=== PATIENT | female | born 1970 | race Caucasian/White ===

== ENCOUNTER 2016-06-02 20:54 | Emergency (ER) | payer OTHER ==
[2015-03-30 12:31] VITALS: BMI 23.0
[~2016-06-02 20:54] MED LIST: DESERYL100 MG PO; HYDROCODONE-APA1 TAB PO; PHENERGAN25 M1 PO; PROTONIX40 MG PO; REQUIP0.5 MG PO; ROBAXIN-750750 MG PO; SOMA350 MG PO; XANAX1 MG PO; XANAX2 MG PO
[2016-06-02 22:06] LABS: BASOPHILS 0.4 % (0.0-2.0); EOSINOPHILS 1.4 % (0-7); HEMATOCRIT 38.9 % (36.0-48.0); HEMOGLOBIN 12.9 g/dL (12-16); IMMATURE GRANULOCYTES 0.2 % (0-5); LYMPHOCYTES 37.7 % (15-50); MCH 32.5 pg (26.0-34.0); MCHC 33.2 g/dL (31.0-37.0); MEAN PLATELET VOLUME 10.5 fL (7.4-10.4); MONOCYTES 10.2 % (2-11); NEUTROPHILS 50.1 % (40-80); PLATELET COUNT 170 10x3/uL (130-400); RBC 3.97 10x6/uL (4.00-5.40); RDW 14.4 % (11.5-14.5); WBC 4.9 10x3/uL (4.8-10.8)
[2016-06-02 22:16] LABS: ALBUMIN 3.3 g/dL (3.4-5.0); ALKALINE PHOSPHATASE 79 U/L (46-116); ALT (SGPT) 13 U/L (10-68); BILIRUBIN - TOTAL 0.13 mg/dL (0.2-1.3); CALC OSMOLALITY 279 mosm/kg (275-300); CALCIUM 8.7 mg/dL (8.5-10.1); CARBON DIOXIDE 28.5 mmol/L (21.0-32.0); CHLORIDE - SERUM 106 mmol/L (98-107); CREATININE - SERUM 0.7 mg/dL (0.6-1.3); GLUCOSE 95 mg/dL (74-106); POTASSIUM - SERUM 3.9 mmol/L (3.5-5.1); PROTEIN - SERUM 6.2 g/dL (6.4-8.2); SODIUM 141 mmol/L (136-145); UREA NITROGEN 11 mg/dL (7-18); eGFR NON AFRICAN AMERICAN > 90 mL/min (90-120)
== END 2016-06-02 23:38 | disposition home or self-care (01) ==
LOC: D.ER 20:54
PROVIDERS: Emergency Medicine
DX: R00.2 Palpitations (principal); F17.200 Nicotine dependence, unspecified, uncomplicated

== ENCOUNTER 2016-10-07 07:50 | Emergency (ER) | payer OTHER ==
[2015-03-30 12:31] VITALS: BMI 23.0
== END 2016-10-07 09:28 | disposition home or self-care (01) ==
LOC: D.ER 07:50
DX: S01.111A Laceration without foreign body of right eyelid and periocular area, initial encounter (principal); W10.9XXA Fall (on) (from) unspecified stairs and steps, initial encounter; Y93.89 Activity, other specified; Y92.89 Other specified places as the place of occurrence of the external cause; T14.8 Other injury of unspecified body region; J44.9 Chronic obstructive pulmonary disease, unspecified

== ENCOUNTER 2016-12-10 07:21 | Outpatient (CLI) | payer OTHER ==
[~2016-12-10] VITALS: Ht 162.6 cm; Wt 49.5 kg
--- NOTE | ~2016-12-10 | HEMODYNAMI ---
PATIENT:SHANIKA MARTINEZ MEDICAL RECORD: [id number] : 70 LOCATION:[facility] ADMISSION DATE: 12/10/16 Generatedon:12/10/201610:02 Patient name: SHANIKA MARTINEZ Patient #: [id number] SSN: D OB: 1970 Date of study: 12/10/2016 Page: Of Hemodynamic Procedure Report Patient Data Patient Demographics Procedure consent was obtained First Name: SHANIKA Gender: Female Last Name: MICHELLE : 1970 Middle Initial: M Age: 46 year(s) Patient #: [id number] Race: Additional ID: [id number] Contact details [address]: [address] [place] [address] State: [place] City: [place] Zip code: [address] Past Medical History Allergies Allergen Reaction Date Comments Reported Other allergy 11/01/2014 Morphine, Codeine Codeine 12/10/2016 Morphine 12/10/2016 Other allergy 12/10/2016 Dilaudid, Meloxicam, Sertraline(Zoloft) Admission Admission Data Admission Date: 12/10/2016 Admission Time: 7:21 Procedure Procedure Types Cath Procedure Diagnostic Procedure [facility] w/Coronaries Miscellaneous Procedures Moderate Sedation up to 15 minutes Procedure Description Procedure Date Procedure Date: 12/10/2016 Procedure Start Time: 9:47 Procedure End Time: 9:58 Procedure Staff Name Function Safia Carlin RT Scrub Rivera Mensah RN School Bus Driver/Teacher Assistant Jeffy Reis RN Nurse Thomas Maynard MD Performing Physician Amol Eastman RT Monitor Procedure Data Cath Procedure Fluoroscopy Diagnostic fluoroscopy Total fluoroscopy Time: 0.9 time: 0.9 min min Diagnostic fluoroscopy Total fluoroscopy dose: 83 dose: 83 mGy mGy Contrast Material Contrast Material Type Amount (ml) Isovue 300 51 Entry Location Entry Primary Successful Side Size Upsize Upsize Entry Closure Zamora ccessful Closure Location (Fr) 1 (Fr) 2 (Fr) Remarks Device Remarks Femoral Right 5 Fr Mechanical artery Compression Estimated blood loss: 5 ml Diagnostic catheters Device Type Used For End Catheter Placement Cordis 5Fr Pigtail LV Angiography Catheter (MP) Cordis 5Fr JL 4.0 Left Coronary Catheter (MP) Angiography Cordis 5Fr 3DRC Catheter Right Coronary (MP) Angiography Procedure Complications No complications Procedure Medications Medication Administration Route Dosage Oxygen NC 2 l/min Lidocaine 2% added to field 20 Heparin Flush Bag added to field 2 bags (1000units/500ml NS) 0.9% NaCl I.V. 100 ml/hr 0.9% NaCl I.V. bolus 250 ml Versed I.V. 1 mg Fentanyl I.V. 100 mcg Versed I.V. 1 mg Fentanyl I.V. 50 mcg Versed I.V. 1 mg Fentanyl I.V. 50 mcg Hemodynamics Rest Heart Rate: 73 (bpm) Snapshots Pre Cath Intra NCS Post Cath Vital Signs Time Heart Resp SPO2 etCO2 CD7notu NIBP Rhythm Pain Sedation Rate (ipm) (%) (mmHg) (mmHg) (mmHg) Status Level (bpm) 9:24:23 76 16 100 0 0 117/76(91) NSR 6 (11) 10(A) , Intense 9:28:30 70 16 100 0 0 106/64(81) NSR 6 (11) 10(A) , Intense 9:32:35 69 16 99 0 0 101/51(72) NSR 6 (11) 10(A) , Intense 9:36:39 64 15 97 0 0 96/50(63) NSR 6 (11) 10(A) , Intense 9:40:45 63 16 98 0 0 86/40(72) NSR 6 (11) 10(A) , Intense 9:44:46 60 16 98 0 0 80/46(57) NSR 0 (11) 10(A) , No pain 9:48:48 67 17 98 0 0 83/40(70) NSR 0 (11) 9(A) , No pain 9:52:48 64 16 98 0 0 85/48(61) NSR 0 (11) 10(A) , No pain 9:56:49 62 9 98 0 0 86/42(58) NSR 0 (11) 10(A) , No pain Medications Time Medication Route Dose Verified Delivered Reason Notes Effec tiveness by by 9:26:53 Oxygen NC 2 Thomas Bardales used for l/min Aleyda Reis line out worker 9:26:59 Lidocaine 2% added 20ml Thomas Thomas for local to vial Aleyda Maynard MD anesthetic field 9:27:05 Heparin Flush added 2 Thomas Thomas used for Bag to bags Aleyda Maynard MD procedure (1000units/500ml field NS) 9:27:13 0.9% NaCl I.V. 100 Thomas Buffie Per ml/hr Aleyda Reis RN physician 9:42:36 0.9% NaCl I.V. 250 Thomas Buffie Per bolus ml Aleyda Reis RN physician 9:45:24 Versed I.V. 1 mg Thomas Buffie for Aleyda Reis RN sedation 9:45:30 Fentanyl I.V. 100 Thomas Buffie for mcg Aledya Reis RN sedation 9:48:53 Versed I.V. 1 mg Thomas Buffie for Aleyda Reis RN sedation 9:48:57 Fentanyl I.V. 50 Thomas Buffie for mcg Aleyda Reis RN sedation 9:52:01 Versed I.V. 1 mg Thomas Buffie for Aleyda Reis RN sedation 9:52:04 Fentanyl I.V. 50 Thomas Buffie for mcg Aleyda Reis RN sedation Procedure Log Time Note 9:05:42 Diagnostic Cath Status : Elective 9:06:02 Time tracking: Regular hours 9:06:05 Plan of Care:Hemodynamics will remain stable., Cardiac rhythm will remain stable., Comfort level will be maintained., Respiratory function will remain adequate., Patient/ family verbilizes understanding of procedure., Procedure tolerated without complication., Recovers from procedure without complications.. 9:07:54 Rivera Mensah RN sent for patient. Start room use. 9:13:54 Patient received from Pre/Post Procedure Room to CCL 1 Alert and oriented. Tansferred to table in Supine position. 9:13:55 Warm blankets applied, and franco hugger turned on for patient comfort. 9:13:56 Correct patient and procedure confirmed by team. 9:13:57 Signed procedure consent form obtained from patient. 9:13:59 ECG and BP/O2 sat monitors applied to patient. 9:14:03 Pre-op teaching completed and patient verbalized understanding. 9:14:03 Pre-procedure instructions explained to patient. 9:14:06 Family in waiting room. 9:14:08 Patient NPO since Midnight. 9:19:06 Vital chart was started 9:20:32 Rhythm: sinus rhythm 9:20:33 Full Disclosure recording started 9:20:48 H&P Date Dictated: 11/13/2016 Within 30 days and on chart., H&P Addendum completed by physician on day of procedure. (MUST COMPLETE FOR ALL OUTPATIENTS). 9:20:58 Patient allergic to Codeine 9:21:03 Patient allergic to Morphine 9:21:40 Patient allergic to Other allergyDilaudid, Meloxicam, Sertraline(Zoloft) 9:21:43 Is the patient allergic to Iodine/contrast media? No. 9:21:45 Is patient on blood thinner?Yes 9:21:47 ACC The patient was administered the following blood thiners within the last 24 hours: ACCPlavix 9:21:49 Patient diabetic? No. 9:21:51 Previous problem with sedation/anesthesia? No ? 9:21:55 Snore? No 9:21:56 Sleep apnea? No 9:21:57 Opens mouth fully? Yes 9:21:57 Deviated septum? No 9:21:58 Sticks out tongue? Yes 9:22:01 Airway obstruction? Yes COPD 9:22:05 Dentures? Yes In 9:22:08 Pre procedure: right dorsailis pedis pulse 2+ Normal; easily identifiable; not easily obliterated 9:22:11 Patient pain scale 0/10 ?. 9:22:26 IV patent on arrival in left antecubital with 0.9% NaCl at KVO. 9:22:34 Lab results completed and on chart. 9:22:38 Right groin area was prepped with chlora-prep and draped in sterile fashion 9:22:39 Sharps counted by scrub and verified by R.N. 9:22:39 Alarms reviewed by R. N. 9:23:21 Use device set Femoral Dx 9:23:22 Acist Syringe opened to sterile field. 9:23:23 Terumo 5Fr Marana Sheath opened to sterile field. 9:23:23 Medline Cath Pack opened to sterile field. 9:23:23 Bag Decanter opened to sterile field. 9:23:24 St Arnulfo 260cm J .035 wire opened to sterile field. 9:23:25 Acist Manifold opened to sterile field. 9:23:25 Acist Hand Control opened to sterile field. 9:: Tegaderm 4 x 4 opened to sterile field. 9:: Diagnostic Infinity 5Fr Multipack catheter opened to sterile field. 9::53 Oxygen 2 l/min NC was administered by Jeffy Reis RN; used for procedure; 9::59 Lidocaine 2% 20ml vial added to field was administered by Thomas Maynard MD; for local anesthetic; 9:27:05 Heparin Flush Bag (1000units/500ml NS) 2 bags added to field was administered by Thomas Maynard MD; used for procedure; 9:27:05 Baseline sample Acquired. 9:27:13 0.9% NaCl 100 ml/hr I.V. was administered by Jeffy Reis RN; Per physician; 9:32:17 Zero performed for pressure channel P1 9:32:40 Physician paged 9:42:36 0.9% NaCl 250 ml I.V. bolus was administered by Jeffy Reis RN; Per physician; 9:44:23 Final Timeout: patient, procedure, and site verified with staff and physician. All members of the team are in agreement. 9:44:25 Right groin site verified by team. 9:44:26 Pt has 6/10 chronic back pain, states did not take her pain medications this am. 9:44:29 Physical assessment completed. ASA score P 2 - A patient with mild systemic disease as per Thomas Maynard MD. 9:44:34 Sedation plan: IV Moderate Sedation Versed, Fentanyl 9:45:24 Versed 1 mg I.V. was administered by Jeffy Reis RN; for sedation; 9:45:30 Fentanyl 100 mcg I.V. was administered by Jeffy Reis RN; for sedation; 9:46:47 Procedure started. 9:47:09 Local anesthetic to right femoral artery with Lidocaine 2% by Thomas Maynard MD.INITIAL ACCESS ONLY 9:47:30 A 5 Fr sheath was inserted into the Right Femoral artery 9:48:03 A Cordis 5Fr Pigtail Catheter (MP) was advanced over the wire and used for LV Angiography. 9:48:34 LV gram done using DAN 9:48:39 EF : 50 % 9:48:42 Injector settings: Ml/sec: 10, Volume: 20, 9:48:43 Catheter removed. 9:48:53 Versed 1 mg I.V. was administered by Jeffy Reis RN; for sedation; 9:48:57 Fentanyl 50 mcg I.V. was administered by Jeffy Reis RN; for sedation; 9:49:13 A Cordis 5Fr JL 4.0 Catheter (MP) was advanced over the wire and used for Left Coronary Angiography. 9:49:56 Catheter removed. 9:50:27 A Cordis 5Fr 3DRC Catheter (MP) was advanced over the wire and used for Right Coronary Angiography. 9:51:01 Catheter removed. 9:51:07 Cordis 5Fr Exoseal opened to sterile field. 9:51:24 Sheath removed intact; hemostasis achieved with Mechanical Compression to the Right Femoral artery. 9:51:26 Procedure ended.(Physican Out) 9:51:55 Fluoroscopy time 00.90 minutes. 9:51:58 Fluoroscopy dose: 83 mGy 9:51:58 Flurop Dose total: 83 9:52:01 Versed 1 mg I.V. was administered by Jeffy Reis RN; for sedation; 9:52:02 Contrast amount:Isovue 300 51ml. 9:52:04 Fentanyl 50 mcg I.V. was administered by Jeffy Reis RN; for sedation; 9:52:04 Sharps counted by scrub and verified by R.N. 9:52:05 Insertion/operative site no bleeding no hematoma. 9:52:08 Post-op/insertion site Right Femoral artery dressed using a 4 x 4 and Tegaderm. 9:52:12 Post right femoral artery:stable, clean and dry 9:52:13 Post Procedure Pulses reassessed and unchanged 9:52:15 Post-procedure physical assessment completed. ASA score P 2 - A patient with mild systemic disease as per Thomas Maynard MD. 9:52:17 Post procedure rhythm: unchanged. 9:52:23 Estimated blood loss: 5 ml 9:53:22 Post procedure instruction explained to patient.Patient verbalizes understanding. 9:53:23 Patient needs reinforcement of post procedure teaching. 9:53:36 Procedure type changed to Cath procedure, Diagnostic procedure, LHC, LHC w/Coronaries, Miscellaneous Procedures, Moderate Sedation up to 15 minutes 9:53:51 Procedure Complication : No complications 9:53:53 See physician's report for complete and final results. 9:54:26 Procedure and supply charges have been captured, reviewed, submitted and are correct. 9:55:29 Femstop placed over the right femoral artery at 100 mmHg. Hemostasis achieved. 9:57:46 Vital chart was stopped 9:57:52 Report given to Pre/Post Procedure Room. 9:57:54 Patient transfered to Pre/Post Procedure Room with Stretcher. 9:58:02 Procedure ended. 9:58:02 Full Disclosure recording stopped 9:58:07 End room use (Document Last) Device Usage Item Name Manufacture Quantity Catalog Hospital Part Current Minimal Lo t# / Number Charge Number Stock Stock Serial# Code Acist Acist 1 [id number] [id number] 532243 [id number] 20 Syringe Medical [employer] Inc Bag Microtek 1 2002S 363453 33847 891794 5 Decanter Medical Inc. Medline Cardinal 1 [id number] 130791 94784 044634 5 Cath Pack Health Terumo 5Fr Terumo 1 [id number] 206891 300639 098943 [address] Arn[address] St Arnulfo 1 385772 600375 172527 909241 30 260cm J .035 wire Acist Hand Acist 1 67367 842899 618405 617259 5 Control Medical Systems Inc Acist Acist 1 79984 150770 881930 103323 5 Manifold Medical Systems Inc Diagnostic Cardinal 1 [id number] 941065 73298 634452 30 Infinity Health 5Fr Multipack catheter Tegaderm 4 3M 1 1626W 453410 515511 313911 5 x 4 Cordis 5Fr Cardinal 1 611939 5 Pigtail Health Catheter (MP) Cordis 5Fr Cardinal 1 [id number] 5 JL 4.0 Health Catheter (MP) Cordis 5Fr Cardinal 1 993803 5 3DRC Health Catheter (MP) Cordis 5Fr Cardinal 1 EX500 110941 626543 041302 10 GrabCAD Signature Audit [place] Stage Time Signature Unsigned Intra-Procedure 12/10/2016 Safia Baig Counts 9:58:17 AM Counts RT(R) RT(R) 12/10/2016 10:00:52 AM Intra-Procedure 12/10/2016 Safia 10:02:52 AM Counts RT(R) Signatures Monitor : Amol Eastman RT Signature : Date : Time : [address] [place] [address]
--- NOTE | ~2016-12-10 | OP ---
PATIENT NAME: SHANIKA MARTINEZ MEDICAL RECORD: [id number] :70 LOCATION:D.CAT ADMISSION DATE: SURGEON: MOHAMUD CRUZ MD OPERATION DATE: 12/10/16 PROCEDURES: 1. Left heart catheterization. 2. Selective coronary angiography. 3. Left ventriculogram. INDICATION: 1. Chest pain compatible with angina. 2. Abnormal nuclear stress test. PROCEDURE IN DETAIL: After informed consent was obtained and after detailed explanation of risks, benefits, as well as alternative therapies, the patient elected to proceed with angiogram and heart catheterization. The right femoral area was prepped and draped in a normal sterile fashion. The right femoral artery was cannulated via modified Seldinger technique with placement of 5-[place] sheath. All catheters exchanged through this sheath. FINDINGS: Left ventriculogram was performed in standard 30 degree DAN view, reveals good cardiac wall motion throughout all segments. Overall ejection fraction estimated at 60%. SELECTIVE CORONARY ANGIOGRAPHY: Left main, left anterior descending, left circumflex, and right coronary artery are all smooth-walled vessels with no angiographic evidence of coronary artery disease. OVERALL IMPRESSION: 1. No angiographic evidence of coronary artery disease. 2. Normal left heart pressures. 3. Normal left ventricular systolic function. 4. Chest pain is noncardiac in etiology. No further cardiac workup needs to be ascertained. MOHAMUD CRUZ MD CC: [id number] DICTATION DATE: 12/10/16 1400 MANUFACTURING EXECUTIVE: DM 12/11/16 0859 DEP CLI 12/10/16 [facility] [address] [place] [address]
[2016-12-10] MEDS ORDERED: PHENERGAN25 M1 PO (07:42)
[2016-12-10] MEDS ORDERED: LIORESAL 10 MG10 MG PO (07:43)
[2016-12-10] MEDS ORDERED: BAYER CHEWABLE81 MG PO (07:43)
[2016-12-10] MEDS ORDERED: PLAVIX75 MG PO (07:43)
[2016-12-10 07:54] VITALS: BP 112/65; Ht 162.6 cm; Wt 49.5 kg
[2016-12-10 07:56] LABS: BASOPHILS 0.6 % (0-2); EOSINOPHILS 2.8 % (0-7); HEMATOCRIT 41.7 % (36.0-48.0); HEMOGLOBIN 13.9 g/dL (12-16); IMMATURE GRANULOCYTES 0.3 % (0-5); LYMPHOCYTES 51.9 % (15-50); MCH 33.7 pg (26.0-34.0); MCHC 33.3 g/dL (31.0-37.0); MEAN PLATELET VOLUME 10.6 fL (7.4-10.4); MONOCYTES 11.1 % (2-11); NEUTROPHILS 33.3 % (40-80); PLATELET COUNT 232 10x3/uL (130-400); RBC 4.13 10x6/uL (4.00-5.40); RDW 15.3 % (11.5-14.5); WBC 3.6 10x3/uL (4.8-10.8)
[2016-12-10 08:03] LABS: CALC OSMOLALITY 281 mosm/kg (275-300); CALCIUM 9.4 mg/dL (8.5-10.1); CARBON DIOXIDE 27.1 mmol/L (21.0-32.0); CHLORIDE - SERUM 106 mmol/L (98-107); CREATININE - SERUM 0.6 mg/dL (0.6-1.3); GLUCOSE 91 mg/dL (74-106); POTASSIUM - SERUM 3.7 mmol/L (3.5-5.1); SODIUM 142 mmol/L (136-145); UREA NITROGEN 10 mg/dL (7-18); eGFR NON AFRICAN AMERICAN > 90 mL/min (90-120)
--- NOTE | 2016-12-10 10:26 | NUR ---
RECIEVED BACK TO ROOM VIA STRETCHER FROM [employer] MECHANIC WITH DRESSING TO R/GROIN. FEMSTOP IN PLACE PULSES PRESENT AND MARKED. WILL MONITOR
--- NOTE | 2016-12-10 11:00 | NUR ---
RESTING QUIETLY. 2L NC, NO RESP DISTRESS NOTED. VSS. NO C/O CHEST PAIN OR NAUSEA. RIGHT GROIN 5F EXOSEAL CDI, NO BLEEDING OR HEMATOMA NOTED. FEMSTOP IN PLACE, NO PRESSURE APPLIED.
--- NOTE | 2016-12-10 11:30 | NUR ---
HOB ELEVATED 30 DEGREES. RIGHT GROIN 5F EXOSEAL CDI, NO BLEEDING OR HEMATOMA NOTED. DR. CRUZ AT BEDSIDE SPEAKING WITH PT AND FAMILY.
--- NOTE | 2016-12-10 11:45 | NUR ---
LEFT FA PIV D/C'D WITH CATHETER INTACT, BAND AID TO SITE. UP TO BEDSIDE TO GET DRESSED.
--- NOTE | 2016-12-10 11:55 | NUR ---
UP TO RESTROOM TO VOID.
--- NOTE | 2016-12-10 12:00 | NUR ---
DISCHARGE INSTRUCTIONS GIVEN, VERBALIZED UNDERSTANDING. TAKEN OUT VIA WHEELCHAIR BY CATH FURNACE PACKER. LEFT FACILITY WITH AND ALL PERSONAL BELONGINGS.
== END 2016-12-10 12:00 | disposition home or self-care (01) ==
LOC: D.CATH 07:21
PROVIDERS: Internal Medicine Interventional Cardiology
DX: R07.89 Other chest pain (principal); Z01.812 Encounter for preprocedural laboratory examination

== ENCOUNTER 2017-05-24 03:15 | Emergency (ER) | payer OTHER ==
[2016-12-10 07:54] VITALS: BMI 18.7
[~2017-05-24 03:15] MED LIST changes: +BAYER CHEWABLE81 MG PO; +LIORESAL 10 MG10 MG PO; +PLAVIX75 MG PO
== END 2017-05-24 05:50 | disposition home or self-care (01) ==
LOC: D.ER 03:15
DX: S93.401A Sprain of unspecified ligament of right ankle, initial encounter (principal); W10.9XXA Fall (on) (from) unspecified stairs and steps, initial encounter; Y93.89 Activity, other specified; Y92.019 Unspecified place in single-family (private) house as the place of occurrence of the external cause

== ENCOUNTER 2017-07-13 16:42 | Inpatient (IN) | payer OTHER ==
[~2017-07-13] VITALS: Ht 162.6 cm; Wt 49.5 kg
--- NOTE | ~2017-07-13 | PRO ---
PATIENT:SHANIKA MARTINEZ MEDICAL RECORD: [id number] : 70 LOCATION:D. D.2121 ADMISSION DATE: 07/13/17 PROCEDURE PERFORMED BY: JALEEL LIN MD DATE OF PROCEDURE: 08/08/2017 PROCEDURE: Fiberoptic bronchoscopy. INDICATION: Ms. Martinez is a 46-year-old female who this morning went into respiratory distress and reintubated. She has also worsening infiltrate. Fiberoptic bronchoscopy was carried down to inspect airway for mucus plugging and we will obtain specimen for culture and sensitivity. PROCEDURE: Fiberoptic bronchoscope was passed through the ET tube. The judd was sharp. There were bronchitic changes in the left lower lobe segments. The left main bronchus, the subsegment to the left upper lobe lingula, left lower lobe within normal range. No endobronchial lesion was seen. There were thick yellowish secretions. The right main bronchus was normal, but there was a thick yellowish secretion filling bronchus intermedius in the lower segments. The mucus plugging was removed. No endobronchial lesion was seen. There were bronchitic changes of the right upper lobe subsegment, right middle lobe, right lower lobe subsegments. Specimen washing was obtained and sent for routine culture and sensitivity, AFB and fungus and cytology. TRANSINT:[id number] Voice Confirmation ID: [id number] DOCUMENT ID: [id number] JALEEL LIN MD at 1340 CC: [id number] DICTATION DATE: 08/08/17 1747 TOP IRONER: 08/08/17 1929 DIS IN 08/20/17 [place] [address] [place] [address]
--- NOTE | ~2017-07-13 | EC ---
PATIENT:SHANIKA MARTINEZ DATE OF SERVICE: 07/13/17 SEX: F MEDICAL RECORD: [id number] DATE OF : [birth year] LOCATION:[place] [address] AGE OF PATIENT: 46 ADMISSION DATE: 07/13/17 REFERRING PHYSICIAN: INTERPRETING PHYSICIAN: NERY ROSAS MD ECHOCARDIOGRAM REPORT ECHO CHARGES 4 ECHO COMPLETE CLINICAL DIAGNOSIS: TACHYCARDIA ECHOCARDIOGRAPHIC MEASUREMENTS (adult normal given) AC root (d.<3.7cm) 1.2 cm LV Septum d (<1.2 cm> 1.3 cm Valve Excursion 1.3 cm LV Septum (systole) 1.4 cm Left Atria (s.<4.0cm> 3.5 cm LVPW d(<1.2cm) 1.2 cm RV (d.<2.3cm) 2.7 cm LVPW (sytole) 1.7 cm LV diastole(<5.6CM) 2.8 cm MV E-F(>70mm/sec) cm LV systole 1.4 cm LVOT Diameter 1.8 cm MV exc.(>10mm) cm Est.ejection fraction (50-75%) % Pericardial Effusion Y DOPPLER: LVIT cm/sec A cm/sec E cm/sec LA cm/sec RVSP 16 mmHg LVOT 93 cm/sec AOP1/2T m/s Asc. Ao 133 cm/sec RVOT cm/sec RA cm/sec PA cm/sec AV Gradient Peak 7.04 mmHg AV Mean 3.71 mmHg AV Area 1.4 cm MV Gradient Peak 6.28 mmHg MV Mean 1.93 mmHg MV Area cm COMMENTS: Wash Worker: Leyla DAMICO Quality Control Auditor: Ida Rosas TAPE# PACS DATE OF SERVICE: 07/29/2017 Transthoracic Echocardiogram FINDINGS: 1. The patient has left ventricular hypertrophy. The inflow characteristics are not recorded. The patient has hyperdynamic function. There are no obvious regional wall motion abnormalities. 2. The right ventricle is mildly dilated with right ventricular hypertrophy. RVSP is normal. ECHOCARDIOGRAM REPORT [id number] SHANIKA MARTINEZ 3. The tricuspid valve is normal. 4. The mitral valve has mild to moderate mitral regurgitation. CONCLUSION: This is a difficult study. Some structures are poorly visualized; however, overall the patient has hyperdynamic function. There is some evidence of mild to moderate mitral regurgitation. No other significant valvular abnormalities are seen. There is no pericardial effusion. TRANSINT:[id number] Voice Confirmation ID: [id number] DOCUMENT ID: [id number] 08/11/2017 Edited to correct date of service, dmm. NERY ROSAS MD at 1001 CC: [id number] DICTATION DATE: 07/30/17 0749 CREATIVE PROJECT MANAGER: 07/30/17 1220 ADM IN [place] [id number] [place] [id number]
--- NOTE | ~2017-07-13 | OP ---
PATIENT NAME: SHANIKA MARTINEZ MEDICAL RECORD: [id number] :70 LOCATION:D. D.2121 ADMISSION DATE:07/13/17 SURGEON: JALEEL LIN MD DATE OF OPERATION: 07/22/2017 PROCEDURE: Fiberoptic bronchoscopy. INDICATION: Ms. Martinez is a 46-year-old female who is in respiratory failure, on mechanical ventilator. The chest x-ray showed today diffuse infiltrates, which is getting worse. Fiberoptic bronchoscopy was carried out to inspect the airway for any mucus plugging and get a specimen for culture and sensitivity. PROCEDURE IN DETAIL: The fiberoptic bronchoscope was easily passed through the ET tube. The judd was sharp. The right main bronchus of the subsegment to the right upper lobe, right middle lobe, right lower lobe within normal range. No endobronchial lesion was seen. The left main bronchus was normal. The subsegment to the left upper lobe lingula, left lower lobe within normal range. No endobronchial lesion was seen. There are white thick secretion bilaterally. There were bronchitic changes that bled easily by touching by the bronchoscope. Specimen washing was obtained and sent for routine culture and sensitivity, AFB and fungus and cytology. Overall, the patient tolerated the procedure very well. TRANSINT:[id number] Voice Confirmation ID: [id number] DOCUMENT ID: [id number] JALEEL LIN MD at 1340 CC: [id number] DICTATION DATE: 07/22/17 1438 TEXTILE TECHNICAL OFFICER: 07/22/17 1455 DIS IN 08/20/17 [place] [address] [place] [address]
[2017-07-13 18:03] LABS: ALKALINE PHOSPHATASE 169 U/L (46-116); ALT (SGPT) 44 U/L (10-68); BILIRUBIN - TOTAL 1.33 mg/dL (0.2-1.3); CALC OSMOLALITY 281 mosm/kg (275-300); CALCIUM 9.2 mg/dL (8.5-10.1); CHLORIDE - SERUM 99 mmol/L (98-107); CREATININE - SERUM 0.9 mg/dL (0.6-1.3); POTASSIUM - SERUM 4.3 mmol/L (3.5-5.1); PROTEIN - SERUM 7.7 g/dL (6.4-8.2); SODIUM 137 mmol/L (136-145); UREA NITROGEN 15 mg/dL (7-18); eGFR NON AFRICAN AMERICAN 71 mL/min (90-120)
[2017-07-13 18:04] LABS: GLUCOSE 228 mg/dL (74-106)
[2017-07-13 18:11] LABS: MAGNESIUM - SERUM 2.2 mg/dL (1.8-2.4); PRO BNP 219 pg/mL (0-125); TROPONIN-I < 0.017 ng/mL (0.000-0.060)
[2017-07-13 18:31] LABS: BASOPHILS 0.1 % (0-2); EOSINOPHILS 0 % (0-7); HEMATOCRIT 49.5 % (36.0-48.0); HEMOGLOBIN 16.9 g/dL (12-16); IMMATURE GRANULOCYTES 0.6 % (0-5); LYMPHOCYTES 7.3 % (15-50); MCH 31.8 pg (26.0-34.0); MCHC 34.1 g/dL (31.0-37.0); MCV 93.2 fL (80.0-100.0); MEAN PLATELET VOLUME 10.9 fL (7.4-10.4); MONOCYTES 7.1 % (2-11); NEUTROPHILS 84.9 % (40-80); PLATELET COUNT 302 10x3/uL (130-400); RBC 5.31 10x6/uL (4.00-5.40); RDW 15.1 % (11.5-14.5); WBC 16.1 10x3/uL (4.8-10.8)
[2017-07-13 18:40] LABS: INR 0.93 (0.85-1.17); PROTIME 12.1 SECONDS (11.6-15.0)
[2017-07-13 20:29] LABS: COLOR DK YELLOW (YELLOW)
[2017-07-13 20:30] LABS: APPEARANCE HAZY (CLEAR); BILIRUBIN NEGATIVE (NEGATIVE); GLUCOSE NEGATIVE (NEGATIVE); KETONE SMALL mg/dL (NEGATIVE); NITRITE NEGATIVE (NEGATIVE); PROTEIN NEGATIVE (NEGATIVE); SPECIFIC GRAVITY 1.025 (1.005-1.020); UROBILINOGEN NORMAL (NORMAL)
[2017-07-13 20:37] LABS: BACTERIA MODERATE /hpf (NONE SEEN); EPITHELIAL CELLS 0-5 /hpf (0-5); HYALINE CAST RARE /lpf (NONE SEEN); MUCUS >1+ /lpf (NONE SEEN); RED CELLS - URINE 0-5 /hpf (0-5)
[2017-07-14] VITALS (22 sets, daily range): BP systolic 96–149; BP diastolic 46–98; BMI 15.4
[2017-07-14 04:44] LABS: BASOPHILS 0.2 % (0-2); EOSINOPHILS 0.1 % (0-7); HEMATOCRIT 51.4 % (36.0-48.0); HEMOGLOBIN 17.7 g/dL (12-16); IMMATURE GRANULOCYTES 0.6 % (0-5); MCH 32.6 pg (26.0-34.0); MCHC 34.4 g/dL (31.0-37.0); MCV 94.7 fL (80.0-100.0); MEAN PLATELET VOLUME 11.4 fL (7.4-10.4); MONOCYTES 7.4 % (2-11); NEUTROPHILS 80.7 % (40-80); PLATELET COUNT 330 10x3/uL (130-400); RBC 5.43 10x6/uL (4.00-5.40); RDW 15.7 % (11.5-14.5); WBC 12.5 10x3/uL (4.8-10.8)
[2017-07-14 05:06] LABS: ALKALINE PHOSPHATASE 198 U/L (46-116); BILIRUBIN - TOTAL 1.94 mg/dL (0.2-1.3); CALC OSMOLALITY 281 mosm/kg (275-300); CALCIUM 7.9 mg/dL (8.5-10.1); CARBON DIOXIDE 21.1 mmol/L (21.0-32.0); CHLORIDE - SERUM 104 mmol/L (98-107); GLUCOSE 192 mg/dL (74-106); POTASSIUM - SERUM 3.9 mmol/L (3.5-5.1); PROTEIN - SERUM 6.5 g/dL (6.4-8.2); SODIUM 138 mmol/L (136-145); UREA NITROGEN 14 mg/dL (7-18)
[2017-07-14 05:07] LABS: AMYLASE - SERUM 519 U/L (25-115); CREATININE - SERUM 0.5 mg/dL (0.6-1.3); LIPASE 1929 U/L (73-393)
[2017-07-14 05:08] LABS: ALT (SGPT) 115 U/L (10-68); eGFR NON AFRICAN AMERICAN > 90 mL/min (90-120)
[2017-07-15] VITALS (41 sets, daily range): BP systolic 81–152; BP diastolic 32–91
[2017-07-15 04:14] LABS: BASOPHILS 0.1 % (0-2); EOSINOPHILS 0 % (0-7); HEMATOCRIT 47.7 % (36.0-48.0); HEMOGLOBIN 15.7 g/dL (12-16); IMMATURE GRANULOCYTES 0.4 % (0-5); MCH 32.5 pg (26.0-34.0); MCHC 32.9 g/dL (31.0-37.0); MEAN PLATELET VOLUME 12.1 fL (7.4-10.4); MONOCYTES 9.4 % (2-11); NEUTROPHILS 76.1 % (40-80); PLATELET COUNT 288 10x3/uL (130-400); RBC 4.83 10x6/uL (4.00-5.40); RDW 16.5 % (11.5-14.5); WBC 15.6 10x3/uL (4.8-10.8)
[2017-07-15 04:22] LABS: MCV 98.8 fL (80.0-100.0)
[2017-07-15 05:15] LABS: ALBUMIN 2.4 g/dL (3.4-5.0); ALKALINE PHOSPHATASE 163 U/L (46-116); ALT (SGPT) 77 U/L (10-68); CALC OSMOLALITY 279 mosm/kg (275-300); CALCIUM 7.6 mg/dL (8.5-10.1); CARBON DIOXIDE 16.9 mmol/L (21.0-32.0); CHLORIDE - SERUM 105 mmol/L (98-107); CREATININE - SERUM 0.5 mg/dL (0.6-1.3); GLUCOSE 107 mg/dL (74-106); MAGNESIUM - SERUM 2.1 mg/dL (1.8-2.4); PHOSPHOROUS 2.6 mg/dL (2.5-4.9); POTASSIUM - SERUM 5.3 mmol/L (3.5-5.1); PRE-ALBUMIN 12.9 mg/dL (18.0-35.7); PROTEIN - SERUM 5.6 g/dL (6.4-8.2); SODIUM 139 mmol/L (136-145); UREA NITROGEN 18 mg/dL (7-18); eGFR NON AFRICAN AMERICAN > 90 mL/min (90-120)
[2017-07-15 14:36] LABS: UDS - AMPHET NEGATIVE QUAL (NEGATIVE); UDS - BARB NEGATIVE QUAL (NEGATIVE); UDS - BENZO POSITIVE QUAL (NEGATIVE); UDS - COCAINE NEGATIVE QUAL (NEGATIVE); UDS - OPIATE POSITIVE QUAL (NEGATIVE); UDS - PCP NEGATIVE QUAL (NEGATIVE); UDS - THC NEGATIVE QUAL (NEGATIVE)
[2017-07-16] VITALS (63 sets, daily range): BP systolic 84–163; BP diastolic 48–72
[2017-07-16 04:14] LABS: APTT 31.5 SECONDS (22.8-39.4); INR 1.72 (0.85-1.17); PROTIME 19.6 SECONDS (11.6-15.0)
[2017-07-16 04:15] LABS: D-DIMER-QUANTITATIVE 1.38 ug/mLFEU (0.20-0.54)
[2017-07-16 05:34] LABS: MCH 31.9 pg (26.0-34.0); MCHC 34.1 g/dL (31.0-37.0); MEAN PLATELET VOLUME 11.5 fL (7.4-10.4); RDW 16.5 % (11.5-14.5)
[2017-07-16 05:52] LABS: HEMATOCRIT 36.1 % (36.0-48.0); HEMOGLOBIN 12.3 g/dL (12-16); MCV 93.8 fL (80.0-100.0); PLATELET COUNT 127 10x3/uL (130-400); RBC 3.85 10x6/uL (4.00-5.40); WBC 1.7 10x3/uL (4.8-10.8)
[2017-07-16 06:37] LABS: ALKALINE PHOSPHATASE 55 U/L (46-116); AMYLASE - SERUM 140 U/L (25-115); BILIRUBIN - TOTAL 1.23 mg/dL (0.2-1.3); CARBON DIOXIDE 19.4 mmol/L (21.0-32.0); CHLORIDE - SERUM 109 mmol/L (98-107); CREATININE - SERUM 0.4 mg/dL (0.6-1.3); GLUCOSE 98 mg/dL (74-106); LIPASE 348 U/L (73-393); MAGNESIUM - SERUM 1.7 mg/dL (1.8-2.4); SODIUM 139 mmol/L (136-145); THYROID STIMULATING HORMONE 1.67 uIU/mL (0.36-3.74); eGFR NON AFRICAN AMERICAN > 90 mL/min (90-120)
[2017-07-16 06:41] LABS: ALT (SGPT) 30 U/L (10-68); CALC OSMOLALITY 277 mosm/kg (275-300); POTASSIUM - SERUM 3.4 mmol/L (3.5-5.1); UREA NITROGEN 12 mg/dL (7-18)
[2017-07-16 06:44] LABS: PHOSPHOROUS 0.7 mg/dL (2.5-4.9)
[2017-07-16 06:45] LABS: CALCIUM 6.8 mg/dL (8.5-10.1); EOSINOPHILS 2 % (0-7); LYMPHOCYTES 30 % (15-50); MONOCYTES 15 % (2-11); NEUTROPHILS 36 % (40-80); PLATELET ESTIMATE NORMAL
[2017-07-16 06:46] LABS: VACUOLES 1+
[2017-07-17] VITALS (53 sets, daily range): BP systolic 80–109; BP diastolic 47–64; Ht 162.6 cm; Wt 49.5 kg
[2017-07-17 04:45] LABS: ALBUMIN 1.8 g/dL (3.4-5.0); ALKALINE PHOSPHATASE 42 U/L (46-116); BILIRUBIN - TOTAL 1.77 mg/dL (0.2-1.3); CALC OSMOLALITY 275 mosm/kg (275-300); CHLORIDE - SERUM 108 mmol/L (98-107); CREATININE - SERUM 0.3 mg/dL (0.6-1.3); GLUCOSE 84 mg/dL (74-106); POTASSIUM - SERUM 3.3 mmol/L (3.5-5.1); PROTEIN - SERUM 3.4 g/dL (6.4-8.2); SODIUM 139 mmol/L (136-145); UREA NITROGEN 9 mg/dL (7-18); eGFR NON AFRICAN AMERICAN > 90 mL/min (90-120)
[2017-07-17 04:57] LABS: BASOPHILS 0 % (0-2); EOSINOPHILS 0.6 % (0-7); IMMATURE GRANULOCYTES 1.3 % (0-5); LYMPHOCYTES 29.9 % (15-50); MCH 31.6 pg (26.0-34.0); MCHC 34.9 g/dL (31.0-37.0); MEAN PLATELET VOLUME 11.8 fL (7.4-10.4); MONOCYTES 2.5 % (2-11); NEUTROPHILS 65.7 % (40-80); RDW 16.6 % (11.5-14.5)
[2017-07-17 05:06] LABS: ALT (SGPT) 15 U/L (10-68); CALCIUM 6.4 mg/dL (8.5-10.1); CARBON DIOXIDE 25.2 mmol/L (21.0-32.0); HEMATOCRIT 22.9 % (36.0-48.0); MCV 90.5 fL (80.0-100.0); PHOSPHOROUS 0.9 mg/dL (2.5-4.9); PLATELET COUNT 92 10x3/uL (130-400); RBC 2.53 10x6/uL (4.00-5.40); WBC 1.6 10x3/uL (4.8-10.8)
[2017-07-17 13:17] LABS: HEPATITIS C ANTIBODY <0.1 (0.0-0.9)
[2017-07-18] VITALS (24 sets, daily range): BP systolic 87–116; BP diastolic 52–634
[2017-07-18 05:04] LABS: BASOPHILS 0.4 % (0-2); EOSINOPHILS 2.7 % (0-7); HEMOGLOBIN 9.6 g/dL (12-16); IMMATURE GRANULOCYTES 22.4 % (0-5); LYMPHOCYTES 26.5 % (15-50); MCH 31.5 pg (26.0-34.0); MEAN PLATELET VOLUME 11.5 fL (7.4-10.4); MONOCYTES 5.4 % (2-11); NEUTROPHILS 42.6 % (40-80); PLATELET COUNT 85 10x3/uL (130-400); RDW 16.8 % (11.5-14.5)
[2017-07-18 05:05] LABS: HEMATOCRIT 28.2 % (36.0-48.0); MCV 92.5 fL (80.0-100.0); RBC 3.05 10x6/uL (4.00-5.40); WBC 2.2 10x3/uL (4.8-10.8)
[2017-07-18 05:34] LABS: ALBUMIN 1.9 g/dL (3.4-5.0); ALKALINE PHOSPHATASE 40 U/L (46-116); ALT (SGPT) 13 U/L (10-68); BILIRUBIN - TOTAL 2.79 mg/dL (0.2-1.3); CALC OSMOLALITY 276 mosm/kg (275-300); CALCIUM 7.3 mg/dL (8.5-10.1); CHLORIDE - SERUM 108 mmol/L (98-107); CREATININE - SERUM 0.6 mg/dL (0.6-1.3); GLUCOSE 120 mg/dL (74-106); MAGNESIUM - SERUM 2.1 mg/dL (1.8-2.4); PHOSPHOROUS 2.3 mg/dL (2.5-4.9); POTASSIUM - SERUM 3.6 mmol/L (3.5-5.1); PROTEIN - SERUM 4.4 g/dL (6.4-8.2); SODIUM 138 mmol/L (136-145); TROPONIN-I 0.316 ng/mL (0.000-0.060); UREA NITROGEN 12 mg/dL (7-18); eGFR NON AFRICAN AMERICAN > 90 mL/min (90-120)
[2017-07-18 05:37] LABS: APTT 31.6 SECONDS (22.8-39.4); INR 1.2 (0.85-1.17); PROTIME 14.8 SECONDS (11.6-15.0)
[2017-07-19] VITALS (23 sets, daily range): BP systolic 84–200; BP diastolic 43–81
[2017-07-19 04:53] LABS: BASOPHILS 0.1 % (0-2); EOSINOPHILS 1.8 % (0-7); HEMATOCRIT 30.2 % (36.0-48.0); IMMATURE GRANULOCYTES 7.5 % (0-5); LYMPHOCYTES 12.5 % (15-50); MCHC 33.1 g/dL (31.0-37.0); MCV 93.5 fL (80.0-100.0); MEAN PLATELET VOLUME 11.5 fL (7.4-10.4); MONOCYTES 13.5 % (2-11); NEUTROPHILS 64.6 % (40-80); RBC 3.23 10x6/uL (4.00-5.40); RDW 17.2 % (11.5-14.5)
[2017-07-19 04:54] LABS: PLATELET COUNT 108 10x3/uL (130-400); WBC 6.8 10x3/uL (4.8-10.8)
[2017-07-19 04:59] LABS: ALBUMIN 2.2 g/dL (3.4-5.0); ALKALINE PHOSPHATASE 42 U/L (46-116); ALT (SGPT) 11 U/L (10-68); BILIRUBIN - TOTAL 2.15 mg/dL (0.2-1.3); CALC OSMOLALITY 278 mosm/kg (275-300); CALCIUM 7.7 mg/dL (8.5-10.1); CHLORIDE - SERUM 109 mmol/L (98-107); CREATININE - SERUM 0.7 mg/dL (0.6-1.3); GLUCOSE 112 mg/dL (74-106); MAGNESIUM - SERUM 1.9 mg/dL (1.8-2.4); POTASSIUM - SERUM 3.3 mmol/L (3.5-5.1); PROTEIN - SERUM 4.7 g/dL (6.4-8.2); SODIUM 140 mmol/L (136-145); UREA NITROGEN 11 mg/dL (7-18); eGFR NON AFRICAN AMERICAN > 90 mL/min (90-120)
[2017-07-19 19:33] LABS: CALC OSMOLALITY 280 mosm/kg (275-300); CALCIUM 7.9 mg/dL (8.5-10.1); CARBON DIOXIDE 21.7 mmol/L (21.0-32.0); CHLORIDE - SERUM 109 mmol/L (98-107); CREATININE - SERUM 0.8 mg/dL (0.6-1.3); GLUCOSE 112 mg/dL (74-106); SODIUM 141 mmol/L (136-145); UREA NITROGEN 10 mg/dL (7-18); eGFR NON AFRICAN AMERICAN 82 mL/min (90-120)
[2017-07-20] VITALS (27 sets, daily range): BP systolic 91–129; BP diastolic 52–85
[2017-07-20 05:06] LABS: HEMATOCRIT 32.5 % (36.0-48.0); HEMOGLOBIN 10.9 g/dL (12-16); MCH 31.8 pg (26.0-34.0); MCHC 33.5 g/dL (31.0-37.0); MCV 94.8 fL (80.0-100.0); MEAN PLATELET VOLUME 10.4 fL (7.4-10.4); PLATELET COUNT 159 10x3/uL (130-400); RBC 3.43 10x6/uL (4.00-5.40); RDW 17.2 % (11.5-14.5); WBC 26.1 10x3/uL (4.8-10.8)
[2017-07-20 05:19] LABS: ALBUMIN 2.3 g/dL (3.4-5.0); ALKALINE PHOSPHATASE 59 U/L (46-116); ALT (SGPT) 12 U/L (10-68); BILIRUBIN - TOTAL 2.19 mg/dL (0.2-1.3); CALC OSMOLALITY 283 mosm/kg (275-300); CALCIUM 7.3 mg/dL (8.5-10.1); CARBON DIOXIDE 21.9 mmol/L (21.0-32.0); CHLORIDE - SERUM 111 mmol/L (98-107); CREATININE - SERUM 0.8 mg/dL (0.6-1.3); GLUCOSE 138 mg/dL (74-106); MAGNESIUM - SERUM 1.6 mg/dL (1.8-2.4); POTASSIUM - SERUM 3.7 mmol/L (3.5-5.1); PROTEIN - SERUM 4.8 g/dL (6.4-8.2); SODIUM 142 mmol/L (136-145); UREA NITROGEN 10 mg/dL (7-18); eGFR NON AFRICAN AMERICAN 82 mL/min (90-120)
[2017-07-20 05:34] LABS: EOSINOPHILS 1 % (0-7); LYMPHOCYTES 3 % (15-50); MONOCYTES 11 % (2-11); NEUTROPHILS 77 % (40-80); PLATELET ESTIMATE NORMAL
[2017-07-20 06:19] LABS: APTT 28.6 SECONDS (22.8-39.4); INR 1.28 (0.85-1.17); PROTIME 15.5 SECONDS (11.6-15.0)
[2017-07-21] VITALS (24 sets, daily range): BP systolic 97–194; BP diastolic 49–69
[2017-07-21 03:56] LABS: BASOPHILS 0.3 % (0-2); EOSINOPHILS 0.6 % (0-7); IMMATURE GRANULOCYTES 1.6 % (0-5); LYMPHOCYTES 4.1 % (15-50); MCH 31.4 pg (26.0-34.0); MCHC 33.3 g/dL (31.0-37.0); MCV 94.3 fL (80.0-100.0); MEAN PLATELET VOLUME 10.9 fL (7.4-10.4); MONOCYTES 7.4 % (2-11); PLATELET COUNT 166 10x3/uL (130-400); RBC 3.18 10x6/uL (4.00-5.40); RDW 17.2 % (11.5-14.5); WBC 33.9 10x3/uL (4.8-10.8)
[2017-07-21 04:13] LABS: ANION GAP 9.8 mmol/L (8-16); CALCIUM 7.6 mg/dL (8.5-10.1); CARBON DIOXIDE 24.9 mmol/L (21.0-32.0); CREATININE - SERUM 0.9 mg/dL (0.6-1.3); MAGNESIUM - SERUM 1.9 mg/dL (1.8-2.4); PHOSPHOROUS 2.6 mg/dL (2.5-4.9); POTASSIUM - SERUM 3.7 mmol/L (3.5-5.1); VANCOMYCIN - TROUGH 22.1 ug/mL (10.0-20.0)
[2017-07-22] VITALS (24 sets, daily range): BP systolic 97–116; BP diastolic 29–94
[2017-07-22 06:21] LABS: ALBUMIN 2.3 g/dL (3.4-5.0); ANION GAP 9.7 mmol/L (8-16); BILIRUBIN - TOTAL 0.9 mg/dL (0.2-1.3); CALCIUM 7.8 mg/dL (8.5-10.1); CARBON DIOXIDE 25.2 mmol/L (21.0-32.0); CREATININE - SERUM 0.9 mg/dL (0.6-1.3); MAGNESIUM - SERUM 1.9 mg/dL (1.8-2.4); PHOSPHOROUS 3.2 mg/dL (2.5-4.9); POTASSIUM - SERUM 3.9 mmol/L (3.5-5.1); PROTEIN - SERUM 4.7 g/dL (6.4-8.2); VANCOMYCIN - TROUGH 20.7 ug/mL (10.0-20.0)
[2017-07-22 06:34] LABS: HEMATOCRIT 28.7 % (36.0-48.0); HEMOGLOBIN 9.8 g/dL (12-16); LYMPHOCYTES 2.6 % (15-50); MCH 32.9 pg (26.0-34.0); MCHC 34.1 g/dL (31.0-37.0); MCV 96.3 fL (80.0-100.0); MEAN PLATELET VOLUME 11.4 fL (7.4-10.4); NEUTROPHILS 92.8 % (40-80); PLATELET COUNT 165 10x3/uL (130-400); RBC 2.98 10x6/uL (4.00-5.40); RDW 18.4 % (11.5-14.5); WBC 33.8 10x3/uL (4.8-10.8)
[2017-07-23] VITALS (24 sets, daily range): BP systolic 89–140; BP diastolic 50–101
[2017-07-23 06:43] LABS: BASOPHILS 0.2 % (0-2); EOSINOPHILS 0.6 % (0-7); HEMATOCRIT 29.3 % (36.0-48.0); HEMOGLOBIN 9.6 g/dL (12-16); IMMATURE GRANULOCYTES 4.5 % (0-5); LYMPHOCYTES 4.8 % (15-50); MCH 31.2 pg (26.0-34.0); MCHC 32.8 g/dL (31.0-37.0); MCV 95.1 fL (80.0-100.0); MONOCYTES 5.3 % (2-11); NEUTROPHILS 84.6 % (40-80); PLATELET COUNT 216 10x3/uL (130-400); RBC 3.08 10x6/uL (4.00-5.40); RDW 17.5 % (11.5-14.5)
[2017-07-23 07:12] LABS: ALBUMIN 2.6 g/dL (3.4-5.0); BILIRUBIN - TOTAL 0.7 mg/dL (0.2-1.3); CALCIUM 7.9 mg/dL (8.5-10.1); MAGNESIUM - SERUM 2.1 mg/dL (1.8-2.4); PHOSPHOROUS 3.9 mg/dL (2.5-4.9); PROTEIN - SERUM 4.9 g/dL (6.4-8.2); VANCOMYCIN - RANDOM 16.2 ug/mL (10.0-20.0)
[2017-07-23 13:15] LABS: FUNGUS STAIN Final report (())
[2017-07-23 17:11] LABS: AFB SPECIMEN PROCESSING Concentration (())
[2017-07-24] VITALS (24 sets, daily range): BP systolic 98–144; BP diastolic 55–96
[2017-07-24 04:50] LABS: BASOPHILS 0.3 % (0-2); EOSINOPHILS 0.5 % (0-7); HEMATOCRIT 29.2 % (36.0-48.0); HEMOGLOBIN 9.5 g/dL (12-16); IMMATURE GRANULOCYTES 5.1 % (0-5); MCH 31.4 pg (26.0-34.0); MCHC 32.5 g/dL (31.0-37.0); MCV 96.4 fL (80.0-100.0); MONOCYTES 5.8 % (2-11); NEUTROPHILS 80.3 % (40-80); PLATELET COUNT 252 10x3/uL (130-400); RBC 3.03 10x6/uL (4.00-5.40); RDW 17.5 % (11.5-14.5); WBC 27.2 10x3/uL (4.8-10.8)
[2017-07-24 04:58] LABS: ALBUMIN 2.7 g/dL (3.4-5.0); ANION GAP 12.8 mmol/L (8-16); BILIRUBIN - TOTAL 0.62 mg/dL (0.2-1.3); CARBON DIOXIDE 26.1 mmol/L (21.0-32.0); CREATININE - SERUM 1.1 mg/dL (0.6-1.3); MAGNESIUM - SERUM 1.9 mg/dL (1.8-2.4); PHOSPHOROUS 4.4 mg/dL (2.5-4.9); POTASSIUM - SERUM 3.9 mmol/L (3.5-5.1); PROTEIN - SERUM 5.2 g/dL (6.4-8.2)
[2017-07-25] VITALS (24 sets, daily range): BP systolic 98–155; BP diastolic 53–97
[2017-07-25 04:36] LABS: BASOPHILS 0.2 % (0-2); EOSINOPHILS 0.4 % (0-7); HEMATOCRIT 27.8 % (36.0-48.0); HEMOGLOBIN 9.1 g/dL (12-16); IMMATURE GRANULOCYTES 4.4 % (0-5); MCH 31.2 pg (26.0-34.0); MCHC 32.7 g/dL (31.0-37.0); MCV 95.2 fL (80.0-100.0); MEAN PLATELET VOLUME 11.8 fL (7.4-10.4); MONOCYTES 5.4 % (2-11); NEUTROPHILS 82.6 % (40-80); PLATELET COUNT 257 10x3/uL (130-400); RBC 2.92 10x6/uL (4.00-5.40); WBC 25.1 10x3/uL (4.8-10.8)
[2017-07-25 04:57] LABS: ALBUMIN 2.8 g/dL (3.4-5.0); ANION GAP 11.6 mmol/L (8-16); BILIRUBIN - TOTAL 0.6 mg/dL (0.2-1.3); CALCIUM 7.8 mg/dL (8.5-10.1); CARBON DIOXIDE 28.6 mmol/L (21.0-32.0); CREATININE - SERUM 1.1 mg/dL (0.6-1.3); MAGNESIUM - SERUM 2.2 mg/dL (1.8-2.4); PHOSPHOROUS 4.7 mg/dL (2.5-4.9); POTASSIUM - SERUM 4.2 mmol/L (3.5-5.1); PROTEIN - SERUM 5.1 g/dL (6.4-8.2)
[2017-07-26] VITALS (24 sets, daily range): BP systolic 90–138; BP diastolic 49–93
[2017-07-26 05:12] LABS: BASOPHILS 0.2 % (0-2); EOSINOPHILS 0.8 % (0-7); HEMATOCRIT 27.7 % (36.0-48.0); HEMOGLOBIN 8.9 g/dL (12-16); LYMPHOCYTES 8.1 % (15-50); MCH 31.7 pg (26.0-34.0); MCHC 32.1 g/dL (31.0-37.0); MCV 98.6 fL (80.0-100.0); MEAN PLATELET VOLUME 12.3 fL (7.4-10.4); MONOCYTES 3.5 % (2-11); NEUTROPHILS 84.4 % (40-80); PLATELET COUNT 265 10x3/uL (130-400); RBC 2.81 10x6/uL (4.00-5.40); RDW 17.8 % (11.5-14.5); WBC 20.4 10x3/uL (4.8-10.8)
[2017-07-26 07:46] LABS: ANION GAP 12.9 mmol/L (8-16); BILIRUBIN - TOTAL 0.49 mg/dL (0.2-1.3); CALCIUM 8.2 mg/dL (8.5-10.1); CARBON DIOXIDE 26.5 mmol/L (21.0-32.0); CREATININE - SERUM 0.9 mg/dL (0.6-1.3); MAGNESIUM - SERUM 1.9 mg/dL (1.8-2.4); POTASSIUM - SERUM 4.4 mmol/L (3.5-5.1); PROTEIN - SERUM 5.1 g/dL (6.4-8.2)
[2017-07-27] VITALS (24 sets, daily range): BP systolic 88–131; BP diastolic 38–72
[2017-07-27 04:32] LABS: HEMOGLOBIN 9.1 g/dL (12-16); WBC 23.3 10x3/uL (4.8-10.8)
[2017-07-27 04:33] LABS: BASOPHILS 0.3 % (0-2); EOSINOPHILS 0.6 % (0-7); IMMATURE GRANULOCYTES 1.3 % (0-5); LYMPHOCYTES 6.7 % (15-50); MCH 31.4 pg (26.0-34.0); MCHC 32.5 g/dL (31.0-37.0); MCV 96.6 fL (80.0-100.0); MEAN PLATELET VOLUME 11.9 fL (7.4-10.4); NEUTROPHILS 87.1 % (40-80); PLATELET COUNT 281 10x3/uL (130-400); RDW 17.2 % (11.5-14.5)
[2017-07-27 04:43] LABS: ANION GAP 12.5 mmol/L (8-16); BILIRUBIN - TOTAL 0.45 mg/dL (0.2-1.3); CALCIUM 8.1 mg/dL (8.5-10.1); CARBON DIOXIDE 25.9 mmol/L (21.0-32.0); CREATININE - SERUM 0.9 mg/dL (0.6-1.3); MAGNESIUM - SERUM 1.8 mg/dL (1.8-2.4); PHOSPHOROUS 4.6 mg/dL (2.5-4.9); POTASSIUM - SERUM 4.4 mmol/L (3.5-5.1); PROTEIN - SERUM 4.9 g/dL (6.4-8.2)
[2017-07-28] VITALS (24 sets, daily range): BP systolic 91–143; BP diastolic 40–92
[2017-07-28 04:15] LABS: BASOPHILS 0.1 % (0-2); EOSINOPHILS 0.2 % (0-7); HEMATOCRIT 29.2 % (36.0-48.0); HEMOGLOBIN 9.5 g/dL (12-16); IMMATURE GRANULOCYTES 0.7 % (0-5); LYMPHOCYTES 6.1 % (15-50); MCH 31.5 pg (26.0-34.0); MCHC 32.5 g/dL (31.0-37.0); MCV 96.7 fL (80.0-100.0); MONOCYTES 3.7 % (2-11); NEUTROPHILS 89.2 % (40-80); PLATELET COUNT 316 10x3/uL (130-400); RBC 3.02 10x6/uL (4.00-5.40); RDW 16.8 % (11.5-14.5); WBC 24.1 10x3/uL (4.8-10.8)
[2017-07-28 04:23] LABS: ALBUMIN 3.2 g/dL (3.4-5.0); BILIRUBIN - TOTAL 0.61 mg/dL (0.2-1.3); CALCIUM 8.7 mg/dL (8.5-10.1); CARBON DIOXIDE 29.6 mmol/L (21.0-32.0); MAGNESIUM - SERUM 1.9 mg/dL (1.8-2.4); PHOSPHOROUS 5.1 mg/dL (2.5-4.9); POTASSIUM - SERUM 4.6 mmol/L (3.5-5.1); PROTEIN - SERUM 5.9 g/dL (6.4-8.2)
[2017-07-29] VITALS (24 sets, daily range): BP systolic 87–143; BP diastolic 4–113
[2017-07-29 04:21] LABS: BASOPHILS 0.1 % (0-2); EOSINOPHILS 0.4 % (0-7); HEMATOCRIT 33.9 % (36.0-48.0); IMMATURE GRANULOCYTES 1.1 % (0-5); LYMPHOCYTES 5.5 % (15-50); MCH 31.4 pg (26.0-34.0); MCHC 32.4 g/dL (31.0-37.0); MCV 96.9 fL (80.0-100.0); MONOCYTES 4.9 % (2-11); PLATELET COUNT 446 10x3/uL (130-400); RDW 16.5 % (11.5-14.5); WBC 35.8 10x3/uL (4.8-10.8)
[2017-07-29 04:29] LABS: ALBUMIN 3.6 g/dL (3.4-5.0); BILIRUBIN - TOTAL 1.29 mg/dL (0.2-1.3); CALCIUM 8.9 mg/dL (8.5-10.1); CARBON DIOXIDE 31.1 mmol/L (21.0-32.0); CREATININE - SERUM 0.9 mg/dL (0.6-1.3); MAGNESIUM - SERUM 1.7 mg/dL (1.8-2.4); POTASSIUM - SERUM 4.1 mmol/L (3.5-5.1); PROTEIN - SERUM 6.7 g/dL (6.4-8.2)
[2017-07-29 13:15] LABS: FUNGUS CULTURE RESULT 1 Candida albicans (())
[2017-07-30] VITALS (24 sets, daily range): BP systolic 109–139; BP diastolic 50–81
[2017-07-30 03:44] LABS: BASOPHILS 0.2 % (0-2); EOSINOPHILS 0.4 % (0-7); HEMATOCRIT 26.3 % (36.0-48.0); HEMOGLOBIN 8.6 g/dL (12-16); IMMATURE GRANULOCYTES 0.7 % (0-5); LYMPHOCYTES 8.3 % (15-50); MCHC 32.7 g/dL (31.0-37.0); MCV 94.9 fL (80.0-100.0); MEAN PLATELET VOLUME 11.3 fL (7.4-10.4); NEUTROPHILS 85.4 % (40-80); PLATELET COUNT 390 10x3/uL (130-400); RBC 2.77 10x6/uL (4.00-5.40); RDW 16.2 % (11.5-14.5); WBC 23.3 10x3/uL (4.8-10.8)
[2017-07-30 04:10] LABS: ALBUMIN 3.2 g/dL (3.4-5.0); ANION GAP 12.6 mmol/L (8-16); BILIRUBIN - TOTAL 1.15 mg/dL (0.2-1.3); CALCIUM 8.7 mg/dL (8.5-10.1); CARBON DIOXIDE 29.1 mmol/L (21.0-32.0); POTASSIUM - SERUM 3.7 mmol/L (3.5-5.1); PROTEIN - SERUM 6.2 g/dL (6.4-8.2)
[2017-07-30 04:13] LABS: PHOSPHOROUS 2.9 mg/dL (2.5-4.9)
[2017-07-30 11:16] LABS: HEMATOCRIT 24.3 % (36.0-48.0); HEMOGLOBIN 8.1 g/dL (12-16); LYMPHOCYTES 10.5 % (15-50); MCH 32.8 pg (26.0-34.0); MCHC 33.3 g/dL (31.0-37.0); MEAN PLATELET VOLUME 11.8 fL (7.4-10.4); NEUTROPHILS 82.1 % (40-80); PLATELET COUNT 367 10x3/uL (130-400); RBC 2.47 10x6/uL (4.00-5.40); RDW 16.8 % (11.5-14.5); WBC 17.7 10x3/uL (4.8-10.8)
[2017-07-30 11:19] LABS: MCV 98.4 fL (80.0-100.0)
[2017-07-30 11:39] LABS: APTT 39.7 SECONDS (22.8-39.4); INR 1.62 (0.85-1.17); PROTIME 18.7 SECONDS (11.6-15.0)
[2017-07-31] VITALS (24 sets, daily range): BP systolic 98–132; BP diastolic 61–81
[2017-07-31 05:10] LABS: BASOPHILS 0.2 % (0-2); EOSINOPHILS 1.7 % (0-7); HEMATOCRIT 28.4 % (36.0-48.0); HEMOGLOBIN 9.5 g/dL (12-16); IMMATURE GRANULOCYTES 0.5 % (0-5); LYMPHOCYTES 5.9 % (15-50); MCH 30.9 pg (26.0-34.0); MCHC 33.5 g/dL (31.0-37.0); MEAN PLATELET VOLUME 11.1 fL (7.4-10.4); MONOCYTES 7.3 % (2-11); NEUTROPHILS 84.4 % (40-80); PLATELET COUNT 344 10x3/uL (130-400); RDW 16.4 % (11.5-14.5); WBC 15.5 10x3/uL (4.8-10.8)
[2017-07-31 05:31] LABS: MCV 92.5 fL (80.0-100.0); RBC 3.07 10x6/uL (4.00-5.40)
[2017-07-31 05:42] LABS: ALBUMIN 3.1 g/dL (3.4-5.0); ALKALINE PHOSPHATASE 87 U/L (46-116); ALT (SGPT) 22 U/L (10-68); CALC OSMOLALITY 286 mosm/kg (275-300); CALCIUM 8.5 mg/dL (8.5-10.1); CARBON DIOXIDE 29.5 mmol/L (21.0-32.0); CHLORIDE - SERUM 103 mmol/L (98-107); CREATININE - SERUM 0.8 mg/dL (0.6-1.3); GLUCOSE 109 mg/dL (74-106); MAGNESIUM - SERUM 1.7 mg/dL (1.8-2.4); PHOSPHOROUS 3.6 mg/dL (2.5-4.9); POTASSIUM - SERUM 3.3 mmol/L (3.5-5.1); PROTEIN - SERUM 6.2 g/dL (6.4-8.2); SODIUM 140 mmol/L (136-145); UREA NITROGEN 31 mg/dL (7-18); VANCOMYCIN - TROUGH 26.2 ug/mL (10.0-20.0); eGFR NON AFRICAN AMERICAN 82 mL/min (90-120)
[2017-07-31 17:12] LABS: AFB SPECIMEN PROCESSING Concentration (())
[2017-08-01] VITALS (24 sets, daily range): BP systolic 102–126; BP diastolic 59–82
[2017-08-01 04:24] LABS: ALBUMIN 3.5 g/dL (3.4-5.0); ALKALINE PHOSPHATASE 74 U/L (46-116); ALT (SGPT) 17 U/L (10-68); BILIRUBIN - TOTAL 0.93 mg/dL (0.2-1.3); CALC OSMOLALITY 285 mosm/kg (275-300); CARBON DIOXIDE 28.3 mmol/L (21.0-32.0); CHLORIDE - SERUM 102 mmol/L (98-107); CREATININE - SERUM 0.8 mg/dL (0.6-1.3); GLUCOSE 163 mg/dL (74-106); MAGNESIUM - SERUM 2.1 mg/dL (1.8-2.4); PHOSPHOROUS 3.7 mg/dL (2.5-4.9); POTASSIUM - SERUM 4.7 mmol/L (3.5-5.1); PROTEIN - SERUM 6.7 g/dL (6.4-8.2); SODIUM 137 mmol/L (136-145); UREA NITROGEN 35 mg/dL (7-18); eGFR NON AFRICAN AMERICAN 82 mL/min (90-120)
[2017-08-01 10:19] LABS: FUNGUS STAIN Final report (())
[2017-08-02] VITALS (24 sets, daily range): BP systolic 82–125; BP diastolic 50–81
[2017-08-02 04:55] LABS: BASOPHILS 0.1 % (0-2); EOSINOPHILS 0.4 % (0-7); HEMATOCRIT 32.7 % (36.0-48.0); HEMOGLOBIN 10.5 g/dL (12-16); IMMATURE GRANULOCYTES 0.7 % (0-5); LYMPHOCYTES 10.7 % (15-50); MCH 30.9 pg (26.0-34.0); MCHC 32.1 g/dL (31.0-37.0); MEAN PLATELET VOLUME 11.9 fL (7.4-10.4); MONOCYTES 6.1 % (2-11)
[2017-08-02 04:56] LABS: MCV 96.2 fL (80.0-100.0); PLATELET COUNT 476 10x3/uL (130-400); WBC 19.5 10x3/uL (4.8-10.8)
[2017-08-02 05:10] LABS: ALBUMIN 3.9 g/dL (3.4-5.0); ANION GAP 17.4 mmol/L (8-16); BILIRUBIN - TOTAL 0.64 mg/dL (0.2-1.3); CALCIUM 9.3 mg/dL (8.5-10.1); CARBON DIOXIDE 24.1 mmol/L (21.0-32.0); CREATININE - SERUM 0.9 mg/dL (0.6-1.3); POTASSIUM - SERUM 4.5 mmol/L (3.5-5.1); PROTEIN - SERUM 7.3 g/dL (6.4-8.2)
[2017-08-02 05:11] LABS: PHOSPHOROUS 4.8 mg/dL (2.5-4.9)
[2017-08-03] VITALS (24 sets, daily range): BP systolic 101–144; BP diastolic 59–87
[2017-08-03 05:22] LABS: BASOPHILS 0.2 % (0-2); EOSINOPHILS 0.4 % (0-7); HEMATOCRIT 31.8 % (36.0-48.0); IMMATURE GRANULOCYTES 0.7 % (0-5); LYMPHOCYTES 9.8 % (15-50); MCH 30.5 pg (26.0-34.0); MCHC 31.4 g/dL (31.0-37.0); MEAN PLATELET VOLUME 11.7 fL (7.4-10.4); MONOCYTES 11.7 % (2-11); NEUTROPHILS 77.2 % (40-80); PLATELET COUNT 427 10x3/uL (130-400); RBC 3.28 10x6/uL (4.00-5.40); RDW 15.7 % (11.5-14.5); WBC 17.8 10x3/uL (4.8-10.8)
[2017-08-03 05:39] LABS: ALBUMIN 3.9 g/dL (3.4-5.0); ALKALINE PHOSPHATASE 55 U/L (46-116); BILIRUBIN - TOTAL 0.55 mg/dL (0.2-1.3); CALCIUM 9.4 mg/dL (8.5-10.1); CARBON DIOXIDE 26.6 mmol/L (21.0-32.0); CHLORIDE - SERUM 103 mmol/L (98-107); CREATININE - SERUM 0.8 mg/dL (0.6-1.3); MAGNESIUM - SERUM 1.8 mg/dL (1.8-2.4); POTASSIUM - SERUM 4.4 mmol/L (3.5-5.1); PROTEIN - SERUM 7.1 g/dL (6.4-8.2); SODIUM 139 mmol/L (136-145); UREA NITROGEN 47 mg/dL (7-18); eGFR NON AFRICAN AMERICAN 82 mL/min (90-120)
[2017-08-03 05:43] LABS: ALT (SGPT) 12 U/L (10-68); CALC OSMOLALITY 290 mosm/kg (275-300); GLUCOSE 118 mg/dL (74-106); PHOSPHOROUS 3.4 mg/dL (2.5-4.9)
[2017-08-04] VITALS (24 sets, daily range): BP systolic 101–164; BP diastolic 61–99
[2017-08-04 05:46] LABS: BASOPHILS 0.1 % (0-2); EOSINOPHILS 0.5 % (0-7); HEMATOCRIT 29.5 % (36.0-48.0); HEMOGLOBIN 9.3 g/dL (12-16); IMMATURE GRANULOCYTES 0.9 % (0-5); MCH 30.5 pg (26.0-34.0); MCHC 31.5 g/dL (31.0-37.0); MCV 96.7 fL (80.0-100.0); MEAN PLATELET VOLUME 11.7 fL (7.4-10.4); MONOCYTES 12.1 % (2-11); NEUTROPHILS 77.4 % (40-80); PLATELET COUNT 434 10x3/uL (130-400); RBC 3.05 10x6/uL (4.00-5.40); RDW 15.4 % (11.5-14.5); WBC 17.1 10x3/uL (4.8-10.8)
[2017-08-04 06:24] LABS: ALBUMIN 3.7 g/dL (3.4-5.0); ALKALINE PHOSPHATASE 45 U/L (46-116); ALT (SGPT) 12 U/L (10-68); CALC OSMOLALITY 294 mosm/kg (275-300); CALCIUM 8.6 mg/dL (8.5-10.1); CARBON DIOXIDE 26.4 mmol/L (21.0-32.0); CHLORIDE - SERUM 106 mmol/L (98-107); CREATININE - SERUM 0.8 mg/dL (0.6-1.3); GLUCOSE 138 mg/dL (74-106); MAGNESIUM - SERUM 1.8 mg/dL (1.8-2.4); PHOSPHOROUS 3.6 mg/dL (2.5-4.9); POTASSIUM - SERUM 4.5 mmol/L (3.5-5.1); PROTEIN - SERUM 6.7 g/dL (6.4-8.2); SODIUM 141 mmol/L (136-145); UREA NITROGEN 46 mg/dL (7-18); eGFR NON AFRICAN AMERICAN 82 mL/min (90-120)
[2017-08-05] VITALS (24 sets, daily range): BP systolic 108–158; BP diastolic 78–109
[2017-08-05 06:34] LABS: HEMATOCRIT 32.7 % (36.0-48.0); HEMOGLOBIN 10.3 g/dL (12-16); MCH 30.8 pg (26.0-34.0); MCHC 31.5 g/dL (31.0-37.0); MCV 97.9 fL (80.0-100.0); MEAN PLATELET VOLUME 11.6 fL (7.4-10.4); PLATELET COUNT 505 10x3/uL (130-400); RBC 3.34 10x6/uL (4.00-5.40); RDW 15.7 % (11.5-14.5); WBC 20.5 10x3/uL (4.8-10.8)
[2017-08-05 06:42] LABS: CALC OSMOLALITY 295 mosm/kg (275-300); CALCIUM 9.1 mg/dL (8.5-10.1); CARBON DIOXIDE 27.3 mmol/L (21.0-32.0); CHLORIDE - SERUM 106 mmol/L (98-107); CREATININE - SERUM 0.6 mg/dL (0.6-1.3); GLUCOSE 125 mg/dL (74-106); MAGNESIUM - SERUM 1.8 mg/dL (1.8-2.4); POTASSIUM - SERUM 4.2 mmol/L (3.5-5.1); SODIUM 142 mmol/L (136-145); UREA NITROGEN 45 mg/dL (7-18); eGFR NON AFRICAN AMERICAN > 90 mL/min (90-120)
[2017-08-05 07:57] LABS: EOSINOPHILS 3 % (0-7); HYPOCHROMASIA OCC; LYMPHOCYTES 19 % (15-50); MONOCYTES 9 % (2-11); NEUTROPHILS 66 % (40-80); PLATELET ESTIMATE INCREASED
[2017-08-06] VITALS (23 sets, daily range): BP systolic 136–158; BP diastolic 71–92
[2017-08-06 06:20] LABS: BASOPHILS 0.2 % (0-2); EOSINOPHILS 0.4 % (0-7); HEMATOCRIT 32.4 % (36.0-48.0); HEMOGLOBIN 10.5 g/dL (12-16); IMMATURE GRANULOCYTES 3.2 % (0-5); LYMPHOCYTES 8.6 % (15-50); MCH 31.1 pg (26.0-34.0); MCHC 32.4 g/dL (31.0-37.0); MCV 95.9 fL (80.0-100.0); MEAN PLATELET VOLUME 11.9 fL (7.4-10.4); MONOCYTES 11.3 % (2-11); NEUTROPHILS 76.3 % (40-80); PLATELET COUNT 629 10x3/uL (130-400); RBC 3.38 10x6/uL (4.00-5.40); RDW 15.5 % (11.5-14.5); WBC 24.9 10x3/uL (4.8-10.8)
[2017-08-06 06:29] LABS: CALC OSMOLALITY 296 mosm/kg (275-300); CALCIUM 10.1 mg/dL (8.5-10.1); CARBON DIOXIDE 26.6 mmol/L (21.0-32.0); CHLORIDE - SERUM 104 mmol/L (98-107); CREATININE - SERUM 0.6 mg/dL (0.6-1.3); GLUCOSE 140 mg/dL (74-106); MAGNESIUM - SERUM 1.8 mg/dL (1.8-2.4); PHOSPHOROUS 2.6 mg/dL (2.5-4.9); SODIUM 142 mmol/L (136-145); UREA NITROGEN 46 mg/dL (7-18); eGFR NON AFRICAN AMERICAN > 90 mL/min (90-120)
[2017-08-06 06:30] LABS: POTASSIUM - SERUM 3.5 mmol/L (3.5-5.1)
[2017-08-06 14:24] LABS: FUNGUS CULTURE RESULT 1 Candida glabrata (()); FUNGUS CULTURE RESULT 2 Candida albicans (())
[2017-08-07] VITALS (24 sets, daily range): BP systolic 139–176; BP diastolic 62–101
[2017-08-07 00:48] LABS: APPEARANCE HAZY (CLEAR); BILIRUBIN NEGATIVE (NEGATIVE); COLOR YELLOW (YELLOW); GLUCOSE NEGATIVE (NEGATIVE); KETONE NEGATIVE (NEGATIVE); NITRITE NEGATIVE (NEGATIVE); PROTEIN 3+ mg/dL (NEGATIVE); SPECIFIC GRAVITY 1.015 (1.005-1.020); UROBILINOGEN NORMAL (NORMAL)
[2017-08-07 00:51] LABS: BACTERIA MODERATE /hpf (NONE SEEN); EPITHELIAL CELLS 0-5 /hpf (0-5); GRANULAR CAST OCC /lpf (NONE SEEN); RED CELLS - URINE 0-5 /hpf (0-5); WHITE CELLS - URINE 0-5 /hpf (0-5)
[2017-08-07 06:04] LABS: CALCIUM 9.3 mg/dL (8.5-10.1); CARBON DIOXIDE 24.3 mmol/L (21.0-32.0); CHLORIDE - SERUM 106 mmol/L (98-107); CREATININE - SERUM 0.6 mg/dL (0.6-1.3); MAGNESIUM - SERUM 1.9 mg/dL (1.8-2.4); SODIUM 145 mmol/L (136-145); UREA NITROGEN 44 mg/dL (7-18); eGFR NON AFRICAN AMERICAN > 90 mL/min (90-120)
[2017-08-07 06:05] LABS: CALC OSMOLALITY 307 mosm/kg (275-300); GLUCOSE 251 mg/dL (74-106); PHOSPHOROUS 3.6 mg/dL (2.5-4.9); POTASSIUM - SERUM 4.1 mmol/L (3.5-5.1)
[2017-08-07 06:16] LABS: BASOPHILS 0.2 % (0-2); EOSINOPHILS 0.3 % (0-7); HEMOGLOBIN 9.6 g/dL (12-16); IMMATURE GRANULOCYTES 3.1 % (0-5); LYMPHOCYTES 10.8 % (15-50); MCH 31.1 pg (26.0-34.0); MCV 97.1 fL (80.0-100.0); MONOCYTES 8.8 % (2-11); NEUTROPHILS 76.8 % (40-80); PLATELET COUNT 692 10x3/uL (130-400); RBC 3.09 10x6/uL (4.00-5.40); RDW 16.1 % (11.5-14.5); WBC 27.6 10x3/uL (4.8-10.8)
[2017-08-08] VITALS (23 sets, daily range): BP systolic 103–156; BP diastolic 60–106
[2017-08-08 05:26] LABS: BASOPHILS 0.1 % (0-2); EOSINOPHILS 0.2 % (0-7); HEMATOCRIT 27.6 % (36.0-48.0); HEMOGLOBIN 8.7 g/dL (12-16); LYMPHOCYTES 6.5 % (15-50); MCH 30.7 pg (26.0-34.0); MCHC 31.5 g/dL (31.0-37.0); MCV 97.5 fL (80.0-100.0); MONOCYTES 7.5 % (2-11); NEUTROPHILS 84.7 % (40-80); PLATELET COUNT 470 10x3/uL (130-400); RBC 2.83 10x6/uL (4.00-5.40); RDW 16.4 % (11.5-14.5)
[2017-08-08 05:37] LABS: CALCIUM 9.6 mg/dL (8.5-10.1); CARBON DIOXIDE 26.7 mmol/L (21.0-32.0); CHLORIDE - SERUM 109 mmol/L (98-107); MAGNESIUM - SERUM 1.8 mg/dL (1.8-2.4); PHOSPHOROUS 3.1 mg/dL (2.5-4.9); POTASSIUM - SERUM 3.6 mmol/L (3.5-5.1); SODIUM 149 mmol/L (136-145); UREA NITROGEN 54 mg/dL (7-18); eGFR NON AFRICAN AMERICAN 82 mL/min (90-120)
[2017-08-08 05:38] LABS: CALC OSMOLALITY 314 mosm/kg (275-300); CREATININE - SERUM 0.8 mg/dL (0.6-1.3); GLUCOSE 165 mg/dL (74-106)
[2017-08-09] VITALS (24 sets, daily range): BP systolic 96–126; BP diastolic 46–77
[2017-08-09 06:13] LABS: BASOPHILS 0.1 % (0-2); EOSINOPHILS 0.9 % (0-7); HEMATOCRIT 23.5 % (36.0-48.0); IMMATURE GRANULOCYTES 0.9 % (0-5); LYMPHOCYTES 11.6 % (15-50); MCH 30.9 pg (26.0-34.0); MCHC 31.1 g/dL (31.0-37.0); MEAN PLATELET VOLUME 11.5 fL (7.4-10.4); NEUTROPHILS 78.5 % (40-80); PLATELET COUNT 403 10x3/uL (130-400); RBC 2.36 10x6/uL (4.00-5.40); RDW 16.8 % (11.5-14.5)
[2017-08-09 06:34] LABS: WBC 18.7 10x3/uL (4.8-10.8)
[2017-08-09 06:35] LABS: HEMOGLOBIN 7.3 g/dL (12-16); MCV 99.6 fL (80.0-100.0)
[2017-08-09 06:36] LABS: CALC OSMOLALITY 321 mosm/kg (275-300); CALCIUM 9.4 mg/dL (8.5-10.1); CARBON DIOXIDE 26.3 mmol/L (21.0-32.0); CHLORIDE - SERUM 111 mmol/L (98-107); CREATININE - SERUM 0.7 mg/dL (0.6-1.3); GLUCOSE 126 mg/dL (74-106); PHOSPHOROUS 3.7 mg/dL (2.5-4.9); POTASSIUM - SERUM 3.4 mmol/L (3.5-5.1); SODIUM 151 mmol/L (136-145); eGFR NON AFRICAN AMERICAN > 90 mL/min (90-120)
[2017-08-09 06:40] LABS: UREA NITROGEN 68 mg/dL (7-18)
[2017-08-09 19:08] LABS: AFB SPECIMEN PROCESSING Concentration (())
[2017-08-10] VITALS (24 sets, daily range): BP systolic 96–128; BP diastolic 52–74
[2017-08-10 05:09] LABS: CALC OSMOLALITY 316 mosm/kg (275-300); CALCIUM 9.5 mg/dL (8.5-10.1); CARBON DIOXIDE 24.6 mmol/L (21.0-32.0); CHLORIDE - SERUM 109 mmol/L (98-107); GLUCOSE 102 mg/dL (74-106); MAGNESIUM - SERUM 2.1 mg/dL (1.8-2.4); PHOSPHOROUS 4.5 mg/dL (2.5-4.9); POTASSIUM - SERUM 3.7 mmol/L (3.5-5.1); SODIUM 149 mmol/L (136-145); UREA NITROGEN 70 mg/dL (7-18); VANCOMYCIN - RANDOM 24.3 ug/mL (10.0-20.0)
[2017-08-10 05:10] LABS: CREATININE - SERUM 0.5 mg/dL (0.6-1.3); eGFR NON AFRICAN AMERICAN > 90 mL/min (90-120)
[2017-08-10 06:36] LABS: BASOPHILS 0.3 % (0-2); EOSINOPHILS 1.9 % (0-7); IMMATURE GRANULOCYTES 0.6 % (0-5); LYMPHOCYTES 12.2 % (15-50); MCH 29.8 pg (26.0-34.0); MCHC 31.5 g/dL (31.0-37.0); MONOCYTES 8.5 % (2-11); NEUTROPHILS 76.5 % (40-80); RDW 18.5 % (11.5-14.5); WBC 15.5 10x3/uL (4.8-10.8)
[2017-08-10 06:45] LABS: HEMATOCRIT 29.5 % (36.0-48.0); HEMOGLOBIN 9.3 g/dL (12-16); MCV 94.6 fL (80.0-100.0); PLATELET COUNT 321 10x3/uL (130-400); RBC 3.12 10x6/uL (4.00-5.40)
[2017-08-11] VITALS (24 sets, daily range): BP systolic 94–129; BP diastolic 44–73
[2017-08-11 05:05] LABS: CALC OSMOLALITY 313 mosm/kg (275-300); CARBON DIOXIDE 24.5 mmol/L (21.0-32.0); CHLORIDE - SERUM 108 mmol/L (98-107); CREATININE - SERUM 0.5 mg/dL (0.6-1.3); GLUCOSE 115 mg/dL (74-106); PHOSPHOROUS 3.6 mg/dL (2.5-4.9); POTASSIUM - SERUM 3.6 mmol/L (3.5-5.1); SODIUM 148 mmol/L (136-145); UREA NITROGEN 66 mg/dL (7-18); VANCOMYCIN - RANDOM 12.2 ug/mL (10.0-20.0); eGFR NON AFRICAN AMERICAN > 90 mL/min (90-120)
[2017-08-11 13:13] LABS: FUNGUS STAIN Final report (())
[2017-08-12] VITALS (24 sets, daily range): BP systolic 98–143; BP diastolic 48–88
[2017-08-12 06:42] LABS: CALC OSMOLALITY 307 mosm/kg (275-300); CALCIUM 9.9 mg/dL (8.5-10.1); CARBON DIOXIDE 23.4 mmol/L (21.0-32.0); CHLORIDE - SERUM 106 mmol/L (98-107); CREATININE - SERUM 0.5 mg/dL (0.6-1.3); GLUCOSE 116 mg/dL (74-106); MAGNESIUM - SERUM 1.9 mg/dL (1.8-2.4); PHOSPHOROUS 3.5 mg/dL (2.5-4.9); POTASSIUM - SERUM 3.7 mmol/L (3.5-5.1); SODIUM 145 mmol/L (136-145); UREA NITROGEN 62 mg/dL (7-18); VANCOMYCIN - RANDOM 16.2 ug/mL (10.0-20.0); eGFR NON AFRICAN AMERICAN > 90 mL/min (90-120)
[2017-08-13] VITALS (24 sets, daily range): BP systolic 127–155; BP diastolic 55–88
[2017-08-13 04:34] LABS: CALC OSMOLALITY 297 mosm/kg (275-300); CALCIUM 10.4 mg/dL (8.5-10.1); CARBON DIOXIDE 23.4 mmol/L (21.0-32.0); CHLORIDE - SERUM 103 mmol/L (98-107); CREATININE - SERUM 0.6 mg/dL (0.6-1.3); GLUCOSE 153 mg/dL (74-106); MAGNESIUM - SERUM 1.7 mg/dL (1.8-2.4); PHOSPHOROUS 3.1 mg/dL (2.5-4.9); SODIUM 140 mmol/L (136-145); UREA NITROGEN 56 mg/dL (7-18); eGFR NON AFRICAN AMERICAN > 90 mL/min (90-120)
[2017-08-14] VITALS (24 sets, daily range): BP systolic 119–159; BP diastolic 51–85
[2017-08-14 05:35] LABS: CALC OSMOLALITY 291 mosm/kg (275-300); CALCIUM 9.9 mg/dL (8.5-10.1); CARBON DIOXIDE 21.2 mmol/L (21.0-32.0); CHLORIDE - SERUM 103 mmol/L (98-107); CREATININE - SERUM 0.5 mg/dL (0.6-1.3); GLUCOSE 136 mg/dL (74-106); MAGNESIUM - SERUM 1.9 mg/dL (1.8-2.4); PHOSPHOROUS 2.9 mg/dL (2.5-4.9); POTASSIUM - SERUM 3.7 mmol/L (3.5-5.1); SODIUM 138 mmol/L (136-145); UREA NITROGEN 52 mg/dL (7-18); eGFR NON AFRICAN AMERICAN > 90 mL/min (90-120)
[2017-08-14 06:35] LABS: HEMATOCRIT 24.5 % (36.0-48.0); HEMOGLOBIN 7.9 g/dL (12-16); MCH 30.4 pg (26.0-34.0); MCHC 32.2 g/dL (31.0-37.0); MCV 94.2 fL (80.0-100.0); MEAN PLATELET VOLUME 11.7 fL (7.4-10.4); PLATELET COUNT 348 10x3/uL (130-400); RDW 15.6 % (11.5-14.5)
[2017-08-14 06:37] LABS: APPEARANCE HAZY (CLEAR); BILIRUBIN NEGATIVE (NEGATIVE); COLOR YELLOW (YELLOW); GLUCOSE NEGATIVE (NEGATIVE); KETONE NEGATIVE (NEGATIVE); NITRITE NEGATIVE (NEGATIVE); PROTEIN 3+ mg/dL (NEGATIVE); SPECIFIC GRAVITY 1.015 (1.005-1.020); UROBILINOGEN NORMAL (NORMAL)
[2017-08-14 06:38] LABS: BACTERIA FEW /hpf (NONE SEEN); EPITHELIAL CELLS 0-5 /hpf (0-5); MUCUS <1+ /lpf (NONE SEEN); RED CELLS - URINE 0-5 /hpf (0-5)
[2017-08-14 08:13] LABS: ANISOCYTOSIS OCC; EOSINOPHILS 1 % (0-7); HYPOCHROMASIA OCC; LYMPHOCYTES 13 % (15-50); MONOCYTES 10 % (2-11); NEUTROPHILS 75 % (40-80); PLATELET ESTIMATE NORMAL
[2017-08-14 09:40] LABS: APTT 29.7 SECONDS (22.8-39.4); INR 1.25 (0.85-1.17); PROTIME 15.3 SECONDS (11.6-15.0)
[2017-08-14 22:47] LABS: HEMATOCRIT 30.6 % (36.0-48.0); HEMOGLOBIN 10.4 g/dL (12-16)
[2017-08-15] VITALS (24 sets, daily range): BP systolic 133–160; BP diastolic 71–96
[2017-08-15 04:27] LABS: BASOPHILS 0.2 % (0-2); EOSINOPHILS 0.4 % (0-7); HEMATOCRIT 29.4 % (36.0-48.0); IMMATURE GRANULOCYTES 0.6 % (0-5); LYMPHOCYTES 8.6 % (15-50); MCV 88.3 fL (80.0-100.0); MEAN PLATELET VOLUME 12.1 fL (7.4-10.4); MONOCYTES 7.7 % (2-11); NEUTROPHILS 82.5 % (40-80); PLATELET COUNT 214 10x3/uL (130-400); RBC 3.33 10x6/uL (4.00-5.40); RDW 16.1 % (11.5-14.5); WBC 23.9 10x3/uL (4.8-10.8)
[2017-08-15 04:30] LABS: ALBUMIN 5.2 g/dL (3.4-5.0); ALKALINE PHOSPHATASE 53 U/L (46-116); ALT (SGPT) 39 U/L (10-68); CALC OSMOLALITY 305 mosm/kg (275-300); CALCIUM 10.2 mg/dL (8.5-10.1); CARBON DIOXIDE 18.8 mmol/L (21.0-32.0); CHLORIDE - SERUM 107 mmol/L (98-107); CREATININE - SERUM 0.5 mg/dL (0.6-1.3); GLUCOSE 145 mg/dL (74-106); MAGNESIUM - SERUM 2.1 mg/dL (1.8-2.4); PHOSPHOROUS 2.4 mg/dL (2.5-4.9); POTASSIUM - SERUM 3.7 mmol/L (3.5-5.1); PROTEIN - SERUM 7.8 g/dL (6.4-8.2); SODIUM 142 mmol/L (136-145); eGFR NON AFRICAN AMERICAN > 90 mL/min (90-120)
[2017-08-15 04:31] LABS: UREA NITROGEN 69 mg/dL (7-18)
[2017-08-15 15:15] LABS: HEMATOCRIT 29.8 % (36.0-48.0)
[2017-08-15 23:15] LABS: HEMATOCRIT 27.9 % (36.0-48.0); HEMOGLOBIN 9.3 g/dL (12-16)
[2017-08-16] VITALS (15 sets, daily range): BP systolic 128–151; BP diastolic 73–92
[2017-08-16 04:17] LABS: BASOPHILS 0.3 % (0-2); EOSINOPHILS 1.3 % (0-7); HEMATOCRIT 27.7 % (36.0-48.0); HEMOGLOBIN 9.3 g/dL (12-16); IMMATURE GRANULOCYTES 0.6 % (0-5); MCH 30.3 pg (26.0-34.0); MCHC 33.6 g/dL (31.0-37.0); MCV 90.2 fL (80.0-100.0); MEAN PLATELET VOLUME 11.4 fL (7.4-10.4); MONOCYTES 9.9 % (2-11); NEUTROPHILS 78.9 % (40-80); PLATELET COUNT 204 10x3/uL (130-400); RBC 3.07 10x6/uL (4.00-5.40); RDW 16.5 % (11.5-14.5); WBC 20.7 10x3/uL (4.8-10.8)
[2017-08-16 04:43] LABS: CALC OSMOLALITY 297 mosm/kg (275-300); CALCIUM 10.4 mg/dL (8.5-10.1); CARBON DIOXIDE 19.6 mmol/L (21.0-32.0); CHLORIDE - SERUM 107 mmol/L (98-107); CREATININE - SERUM 0.5 mg/dL (0.6-1.3); GLUCOSE 124 mg/dL (74-106); MAGNESIUM - SERUM 1.8 mg/dL (1.8-2.4); POTASSIUM - SERUM 4.1 mmol/L (3.5-5.1); SODIUM 142 mmol/L (136-145); eGFR NON AFRICAN AMERICAN > 90 mL/min (90-120)
[2017-08-16 04:44] LABS: PHOSPHOROUS 3.4 mg/dL (2.5-4.9); UREA NITROGEN 51 mg/dL (7-18)
[2017-08-17 03:00] VITALS: BP 116/66
[2017-08-17 04:19] LABS: BASOPHILS 0.3 % (0-2); EOSINOPHILS 2.1 % (0-7); HEMATOCRIT 25.8 % (36.0-48.0); HEMOGLOBIN 8.4 g/dL (12-16); IMMATURE GRANULOCYTES 0.8 % (0-5); LYMPHOCYTES 11.1 % (15-50); MCH 30.1 pg (26.0-34.0); MCHC 32.6 g/dL (31.0-37.0); MCV 92.5 fL (80.0-100.0); MEAN PLATELET VOLUME 11.2 fL (7.4-10.4); MONOCYTES 9.4 % (2-11); NEUTROPHILS 76.3 % (40-80); PLATELET COUNT 193 10x3/uL (130-400); RBC 2.79 10x6/uL (4.00-5.40); RDW 16.2 % (11.5-14.5); WBC 19.3 10x3/uL (4.8-10.8)
[2017-08-17 04:31] LABS: ALBUMIN 4.6 g/dL (3.4-5.0); ALKALINE PHOSPHATASE 69 U/L (46-116); ALT (SGPT) 196 U/L (10-68); CALC OSMOLALITY 289 mosm/kg (275-300); CARBON DIOXIDE 22.5 mmol/L (21.0-32.0); CHLORIDE - SERUM 105 mmol/L (98-107); CREATININE - SERUM 0.5 mg/dL (0.6-1.3); GLUCOSE 108 mg/dL (74-106); MAGNESIUM - SERUM 1.7 mg/dL (1.8-2.4); POTASSIUM - SERUM 4.4 mmol/L (3.5-5.1); PROTEIN - SERUM 7.2 g/dL (6.4-8.2); SODIUM 139 mmol/L (136-145); UREA NITROGEN 42 mg/dL (7-18); eGFR NON AFRICAN AMERICAN > 90 mL/min (90-120)
[2017-08-17 04:37] LABS: PHOSPHOROUS 4.5 mg/dL (2.5-4.9)
[2017-08-17 07:00] VITALS: BP 120/54
[2017-08-17 11:00] VITALS: BP 132/73
[2017-08-17 15:00] VITALS: BP 118/56
[2017-08-17 19:00] VITALS: BP 138/71
[2017-08-17 23:00] VITALS: BP 121/70
[2017-08-18 03:00] VITALS: BP 135/80
[2017-08-18 05:06] LABS: BASOPHILS 0.3 % (0-2); EOSINOPHILS 1.8 % (0-7); HEMATOCRIT 32.3 % (36.0-48.0); IMMATURE GRANULOCYTES 0.6 % (0-5); LYMPHOCYTES 8.7 % (15-50); MCH 30.8 pg (26.0-34.0); MCHC 34.1 g/dL (31.0-37.0); MCV 90.5 fL (80.0-100.0); MEAN PLATELET VOLUME 11.7 fL (7.4-10.4); NEUTROPHILS 79.6 % (40-80); PLATELET COUNT 185 10x3/uL (130-400); RBC 3.57 10x6/uL (4.00-5.40); WBC 19.7 10x3/uL (4.8-10.8)
[2017-08-18 05:27] LABS: CALC OSMOLALITY 278 mosm/kg (275-300); CALCIUM 10.1 mg/dL (8.5-10.1); CARBON DIOXIDE 23.4 mmol/L (21.0-32.0); CHLORIDE - SERUM 102 mmol/L (98-107); CREATININE - SERUM 0.5 mg/dL (0.6-1.3); GLUCOSE 97 mg/dL (74-106); MAGNESIUM - SERUM 1.6 mg/dL (1.8-2.4); PHOSPHOROUS 4.3 mg/dL (2.5-4.9); POTASSIUM - SERUM 4.2 mmol/L (3.5-5.1); SODIUM 135 mmol/L (136-145); UREA NITROGEN 38 mg/dL (7-18); eGFR NON AFRICAN AMERICAN > 90 mL/min (90-120)
[2017-08-18 07:00] VITALS: BP 144/85
[2017-08-18 11:00] VITALS: BP 128/80
[2017-08-18 15:00] VITALS: BP 115/64
[2017-08-18 20:00] VITALS: BP 143/69
[2017-08-19 04:00] VITALS: BP 135/78
[2017-08-19 07:30] LABS: FUNGUS MYCOLOGY CULTURE Final report (())
[2017-08-19 09:21] VITALS: BP 140/81
[2017-08-19 13:01] VITALS: BP 154/81
[2017-08-19 17:36] VITALS: BP 130/83
[2017-08-19 19:00] VITALS: BP 136/75
[2017-08-20] VITALS: BP 147/85
[2017-08-20 04:00] VITALS: BP 141/80
[2017-08-20 08:41] VITALS: BP 152/85
[2017-08-20 12:01] VITALS: BP 150/76
[2017-08-20 16:09] VITALS: BP 145/80
[2017-08-20] MEDS ORDERED: ATROVENT 0.02%2.5 ML UPD (16:20)
[2017-08-20] MEDS ORDERED: BROVANA15 MCG/2 M INH (16:20)
[2017-08-20] MEDS ORDERED: XOPENEX 0.0.63 MG/3 UPD (16:21)
[2017-08-20] MEDS ORDERED: XANAX0.5 MG PO (16:27)
[2017-08-20] MEDS ORDERED: HYDROCODON-ACE1 EAC7 PO (16:28)
[2017-08-20] MEDS ORDERED: FUROSEMIDE20 MG PO (16:28)
[2017-08-20] MEDS ORDERED: FLORAJEN3 CAPS460 MG PO (16:28)
[2017-08-20] MEDS ORDERED: PROTONIX40 MG PO (16:29)
[2017-08-20] MEDS ORDERED: ZOFRAN4 MG PO (16:29)
[2017-08-20] MEDS ORDERED: CARAFATE1 G/10 ML PO (16:30)
[2017-08-20] MEDS ORDERED: MIRALAX17 GM PO (16:30)
[2017-08-27 07:32] LABS: FUNGUS MYCOLOGY CULTURE Final report (())
[2017-09-05 17:11] LABS: FUNGUS CULTURE RESULT 1 Candida glabrata (()); FUNGUS MYCOLOGY CULTURE Final report (())
[2017-09-18 11:22] LABS: ACID FAST CULTURE Negative (()); ACID FAST SMEAR Negative (())
[2017-09-24 14:48] LABS: ACID FAST CULTURE Negative (()); ACID FAST SMEAR Negative (())
[2017-09-30 10:22] LABS: ACID FAST CULTURE Negative (()); ACID FAST SMEAR Negative (())
== END 2017-08-20 22:30 | disposition home or self-care (01) | DRG 853 ==
LOC: D.ER 16:42 → D.ICU 23:57 → D.M2 23:57
PROVIDERS: Emergency Medicine; Family Medicine; Internal Medicine Hematology & Oncology; Internal Medicine Nephrology; Internal Medicine Pulmonary Disease; Nurse Practitioner Family; Surgery
PROC: 0DB90ZZ Excision of Duodenum, Open Approach (ICD-10-PCS; principal; 2017-07-15 12:00)
PROC: 5A1955Z Respiratory Ventilation, Greater than 96 Consecutive Hours (ICD-10-PCS; 2017-07-15 12:00)
PROC: 0F9900Z Drainage of Common Bile Duct with Drainage Device, Open Approach (ICD-10-PCS; 2017-07-16)
PROC: 0F190Z3 Bypass Common Bile Duct to Duodenum, Open Approach (ICD-10-PCS; 2017-07-19)
PROC: 0D190ZA Bypass Duodenum to Jejunum, Open Approach (ICD-10-PCS; 2017-07-19)
PROC: 0F190Z3 Bypass Common Bile Duct to Duodenum, Open Approach (ICD-10-PCS; 2017-07-19)
PROC: 0B978ZZ Drainage of Left Main Bronchus, Via Natural or Artificial Opening Endoscopic (ICD-10-PCS; 2017-07-22)
PROC: 0B938ZZ Drainage of Right Main Bronchus, Via Natural or Artificial Opening Endoscopic (ICD-10-PCS; 2017-07-22)
PROC: 0BH17EZ Insertion of Endotracheal Airway into Trachea, Via Natural or Artificial Opening (ICD-10-PCS; 2017-07-30)
PROC: 5A1955Z Respiratory Ventilation, Greater than 96 Consecutive Hours (ICD-10-PCS; 2017-07-30)
PROC: 0B998ZZ Drainage of Lingula Bronchus, Via Natural or Artificial Opening Endoscopic (ICD-10-PCS; 2017-07-30)
PROC: 0B988ZZ Drainage of Left Upper Lobe Bronchus, Via Natural or Artificial Opening Endoscopic (ICD-10-PCS; 2017-07-30)
PROC: 0B978ZZ Drainage of Left Main Bronchus, Via Natural or Artificial Opening Endoscopic (ICD-10-PCS; 2017-07-30)
PROC: 0B9B8ZZ Drainage of Left Lower Lobe Bronchus, Via Natural or Artificial Opening Endoscopic (ICD-10-PCS; 2017-08-02)
PROC: 0BH17EZ Insertion of Endotracheal Airway into Trachea, Via Natural or Artificial Opening (ICD-10-PCS; 2017-08-08)
PROC: 5A1955Z Respiratory Ventilation, Greater than 96 Consecutive Hours (ICD-10-PCS; 2017-08-08)
PROC: 0B968ZZ Drainage of Right Lower Lobe Bronchus, Via Natural or Artificial Opening Endoscopic (ICD-10-PCS; 2017-08-08)
DX: A41.9 Sepsis, unspecified organism (principal); K55.029 Acute infarction of small intestine, extent unspecified; R65.21 Severe sepsis with septic shock; J96.01 Acute respiratory failure with hypoxia; N39.0 Urinary tract infection, site not specified; Z66 Do not resuscitate; E44.0 Moderate protein-calorie malnutrition; Z68.1 Body mass index [BMI] 19.9 or less, adult; T17.590A Other foreign object in bronchus causing asphyxiation, initial encounter; F41.8 Other specified anxiety disorders; I10 Essential (primary) hypertension; E11.9 Type 2 diabetes mellitus without complications; Z85.43 Personal history of malignant neoplasm of ovary; J44.9 Chronic obstructive pulmonary disease, unspecified; F17.200 Nicotine dependence, unspecified, uncomplicated

== ENCOUNTER 2017-08-21 14:45 | Inpatient (IN) | payer OTHER ==
[~2017-08-21] VITALS: Ht 162.6 cm; Wt 40.0 kg
[~2017-08-21 14:45] MED LIST changes: +ATROVENT 0.02%2.5 ML UPD; +BROVANA15 MCG/2 M INH; +CARAFATE1 G/10 ML PO; +FLORAJEN3 CAPS460 MG PO; +FUROSEMIDE20 MG PO; +HYDROCODON-ACE1 EAC7 PO; +MIRALAX17 GM PO; +XANAX0.5 MG PO; +XOPENEX 0.0.63 MG/3 UPD; +ZOFRAN4 MG PO
[2017-08-21 15:30] VITALS: BP 134/65; BMI 16.3
[2017-08-21 19:41] VITALS: BP 138/79
[2017-08-22 08:55] VITALS: BP 150/72
[2017-08-22 09:52] VITALS: Ht 162.6 cm; Wt 40.0 kg
[2017-08-22 19:50] VITALS: BP 143/84
[2017-08-23 08:05] VITALS: BP 143/74
[2017-08-23 20:15] VITALS: BP 144/71
[2017-08-24 07:10] LABS: BASOPHILS 0.3 % (0-2); EOSINOPHILS 3.6 % (0-7); HEMATOCRIT 34.3 % (36.0-48.0); HEMOGLOBIN 11.2 g/dL (12-16); IMMATURE GRANULOCYTES 0.2 % (0-5); MCH 30.1 pg (26.0-34.0); MCHC 32.7 g/dL (31.0-37.0); MCV 92.2 fL (80.0-100.0); MEAN PLATELET VOLUME 10.9 fL (7.4-10.4); MONOCYTES 5.2 % (2-11); NEUTROPHILS 77.7 % (40-80); RBC 3.72 10x6/uL (4.00-5.40); RDW 14.7 % (11.5-14.5); WBC 12.6 10x3/uL (4.8-10.8)
[2017-08-24 07:16] LABS: PLATELET COUNT 287 10x3/uL (130-400)
[2017-08-24 07:34] LABS: CALC OSMOLALITY 279 mosm/kg (275-300); CARBON DIOXIDE 25.7 mmol/L (21.0-32.0); CHLORIDE - SERUM 102 mmol/L (98-107); CREATININE - SERUM 0.5 mg/dL (0.6-1.3); GLUCOSE 99 mg/dL (74-106); SODIUM 140 mmol/L (136-145); UREA NITROGEN 14 mg/dL (7-18); eGFR NON AFRICAN AMERICAN > 90 mL/min (90-120)
[2017-08-24 07:35] LABS: POTASSIUM - SERUM 2.7 mmol/L (3.5-5.1)
[2017-08-24 07:40] VITALS: BP 146/88
[2017-08-24 20:15] VITALS: BP 152/76
[2017-08-25 06:31] LABS: CALCIUM 9.3 mg/dL (8.5-10.1); CARBON DIOXIDE 24.6 mmol/L (21.0-32.0); CHLORIDE - SERUM 105 mmol/L (98-107); GLUCOSE 91 mg/dL (74-106); POTASSIUM - SERUM 3.5 mmol/L (3.5-5.1); SODIUM 142 mmol/L (136-145)
[2017-08-25 06:42] LABS: CALC OSMOLALITY 281 mosm/kg (275-300); CREATININE - SERUM 0.3 mg/dL (0.6-1.3); UREA NITROGEN 10 mg/dL (7-18); eGFR NON AFRICAN AMERICAN > 90 mL/min (90-120)
[2017-08-25 06:56] LABS: BASOPHILS 0.2 % (0-2); EOSINOPHILS 4.4 % (0-7); HEMATOCRIT 34.3 % (36.0-48.0); HEMOGLOBIN 11.4 g/dL (12-16); IMMATURE GRANULOCYTES 0.1 % (0-5); LYMPHOCYTES 21.5 % (15-50); MCH 30.6 pg (26.0-34.0); MCHC 33.2 g/dL (31.0-37.0); MONOCYTES 7.8 % (2-11); PLATELET COUNT 331 10x3/uL (130-400); RBC 3.73 10x6/uL (4.00-5.40); RDW 14.8 % (11.5-14.5)
[2017-08-25 07:02] LABS: WBC 8.8 10x3/uL (4.8-10.8)
[2017-08-25 08:00] VITALS: BP 134/77
[2017-08-25 09:44] LABS: CKMB 1.5 U/L (0.0-3.6); CREATINE KINASE 17 UL (21-215); TROPONIN-I 0.044 ng/mL (0.000-0.060)
[2017-08-25 21:05] VITALS: BP 132/76
[2017-08-26 08:30] VITALS: BP 138/75
[2017-08-26 20:00] VITALS: BP 124/75
[2017-08-27 07:34] LABS: BASOPHILS 0.4 % (0-2); EOSINOPHILS 4.5 % (0-7); HEMATOCRIT 32.1 % (36.0-48.0); HEMOGLOBIN 10.6 g/dL (12-16); IMMATURE GRANULOCYTES 0.1 % (0-5); LYMPHOCYTES 22.9 % (15-50); MCH 30.5 pg (26.0-34.0); MCV 92.5 fL (80.0-100.0); MEAN PLATELET VOLUME 10.2 fL (7.4-10.4); MONOCYTES 7.2 % (2-11); NEUTROPHILS 64.9 % (40-80); PLATELET COUNT 287 10x3/uL (130-400); RBC 3.47 10x6/uL (4.00-5.40); RDW 14.7 % (11.5-14.5); WBC 7.8 10x3/uL (4.8-10.8)
[2017-08-27 07:52] LABS: CALC OSMOLALITY 281 mosm/kg (275-300); CARBON DIOXIDE 26.1 mmol/L (21.0-32.0); CHLORIDE - SERUM 105 mmol/L (98-107); CREATININE - SERUM 0.5 mg/dL (0.6-1.3); GLUCOSE 96 mg/dL (74-106); SODIUM 142 mmol/L (136-145); UREA NITROGEN 10 mg/dL (7-18); eGFR NON AFRICAN AMERICAN > 90 mL/min (90-120)
[2017-08-27 08:27] LABS: POTASSIUM - SERUM 2.8 mmol/L (3.5-5.1)
[2017-08-27 09:29] VITALS: BP 117/50
[2017-08-27 19:05] VITALS: BP 140/74
[2017-08-28 07:15] VITALS: BP 131/76
[2017-08-28] MEDS ORDERED: HYDROCODON-ACE1 EAC7 PO (08:16)
[2017-08-28] MEDS ORDERED: K-DUR20 MEQ PO (08:17)
== END 2017-08-28 15:59 | disposition home health service (06) | DRG 91 ==
LOC: D.REHAB 14:45
PROVIDERS: Emergency Medicine; Family Medicine
DX: G72.81 Critical illness myopathy (principal); J96.21 Acute and chronic respiratory failure with hypoxia; J96.22 Acute and chronic respiratory failure with hypercapnia; A41.9 Sepsis, unspecified organism; R65.21 Severe sepsis with septic shock; J18.9 Pneumonia, unspecified organism; K85.90 Acute pancreatitis without necrosis or infection, unspecified; J81.1 Chronic pulmonary edema; J90 Pleural effusion, not elsewhere classified; D62 Acute posthemorrhagic anemia; E87.1 Hypo-osmolality and hyponatremia; E46 Unspecified protein-calorie malnutrition; J44.9 Chronic obstructive pulmonary disease, unspecified; E11.9 Type 2 diabetes mellitus without complications; E87.6 Hypokalemia; D72.829 Elevated white blood cell count, unspecified; M21.372 Foot drop, left foot; M21.371 Foot drop, right foot; R82.71 Bacteriuria; R53.81 Other malaise; R53.1 Weakness

== ENCOUNTER → 2017-09-25 10:15 | Outpatient (CLI) | payer OTHER ==
[2017-08-22 09:52] VITALS: BMI 16.3
[~2017-09-25 10:15] MED LIST changes: +K-DUR20 MEQ PO
== END | disposition home or self-care (01) ==
LOC: D.CT 10:15
DX: R10.9 Unspecified abdominal pain (principal)

== ENCOUNTER 2017-10-22 12:22 | Emergency (ER) | payer OTHER ==
[2017-08-22 09:52] VITALS: BMI 16.3
[2017-10-22 13:22] LABS: INR 0.92 (0.85-1.17)
[2017-10-22 13:27] LABS: BASOPHILS 0.3 % (0-2); EOSINOPHILS 2.8 % (0-7); HEMATOCRIT 37.1 % (36.0-48.0); HEMOGLOBIN 12.5 g/dL (12-16); IMMATURE GRANULOCYTES 0.3 % (0-5); LYMPHOCYTES 36.2 % (15-50); MCH 32.6 pg (26.0-34.0); MCHC 33.7 g/dL (31.0-37.0); MCV 96.6 fL (80.0-100.0); MEAN PLATELET VOLUME 9.8 fL (7.4-10.4); MONOCYTES 6.4 % (2-11); PLATELET COUNT 267 10x3/uL (130-400); RBC 3.84 10x6/uL (4.00-5.40); RDW 15.4 % (11.5-14.5); WBC 8.6 10x3/uL (4.8-10.8)
[2017-10-22 13:31] LABS: ALBUMIN 3.2 g/dL (3.4-5.0); ALKALINE PHOSPHATASE 71 U/L (46-116); ALT (SGPT) 20 U/L (10-68); BILIRUBIN - TOTAL 0.19 mg/dL (0.2-1.3); CALC OSMOLALITY 280 mosm/kg (275-300); CALCIUM 9.1 mg/dL (8.5-10.1); CHLORIDE - SERUM 107 mmol/L (98-107); CREATININE - SERUM 0.5 mg/dL (0.6-1.3); GLUCOSE 79 mg/dL (74-106); POTASSIUM - SERUM 4.4 mmol/L (3.5-5.1); PROTEIN - SERUM 6.4 g/dL (6.4-8.2); SODIUM 141 mmol/L (136-145); UREA NITROGEN 14 mg/dL (7-18); eGFR NON AFRICAN AMERICAN > 90 mL/min (90-120)
[2017-10-22 13:40] LABS: AMYLASE - SERUM 50 U/L (25-115); CREATINE KINASE 25 UL (21-215); LIPASE 105 U/L (73-393); PRO BNP 224 pg/mL (0-125)
[2017-10-22 13:44] LABS: TROPONIN-I < 0.017 ng/mL (0.000-0.060)
[2017-10-22 13:56] LABS: APPEARANCE CLEAR (CLEAR); BILIRUBIN NEGATIVE (NEGATIVE); COLOR YELLOW (YELLOW); GLUCOSE NEGATIVE (NEGATIVE); KETONE NEGATIVE (NEGATIVE); NITRITE NEGATIVE (NEGATIVE); PROTEIN NEGATIVE (NEGATIVE); SPECIFIC GRAVITY 1.015 (1.005-1.020); UROBILINOGEN NORMAL (NORMAL)
== END 2017-10-22 15:27 | disposition home or self-care (01) ==
LOC: D.ER 12:22
PROVIDERS: Family Medicine; Nurse Practitioner Family
DX: R10.9 Unspecified abdominal pain (principal); K59.00 Constipation, unspecified; Z87.19 Personal history of other diseases of the digestive system

== ENCOUNTER → 2017-11-24 17:12 | Outpatient (CLI) | payer OTHER ==
[2017-08-22 09:52] VITALS: BMI 16.3
== END | disposition home or self-care (01) ==
LOC: D.CT 17:12
DX: J44.9 Chronic obstructive pulmonary disease, unspecified (principal)

== ENCOUNTER → 2018-01-19 16:43 | Outpatient (CLI) | payer OTHER ==
[2017-08-22 09:52] VITALS: BMI 16.3
== END | disposition home or self-care (01) ==
LOC: D.MRI 01-13 18:00
DX: M25.561 Pain in right knee (principal)

== ENCOUNTER 2018-05-11 17:38 | Inpatient (IN) | payer OTHER ==
[~2018-05-11] VITALS: Ht 162.6 cm; Wt 42.9 kg
--- NOTE | 2018-05-11 18:24 | NUR ---
PT RECIEVED FROM EMS @ 1747. DIRECT ADMIT FROM DR SHORE. EMS STATES UNABLE TO ASCULTATE AN ACCURATE BP, OR START AND IV ENROUTE. CALLED RAPID RESPONSE AT 1750. ICU NURSE OBTAINED BP OF 90/45, UNABLE TO START LINE AT THIS TIME. CONSULT SENT TO SURGERY FOR CENTRAL LINE PLACEMENT. ORDERS REVIEWED AND ENTERED. ABGS OBTAINED WELL CXR. DR HARRISON NOTIFIED AND SAID TO MONITOR AT THIS TIME. AND WAIT FOR LINE PLACEMENT, REEVALUATE MOVING TO ICU IF CONDITIONS CHANGE. FAMILY AT BEDSIDE AT THIS TIME.
[2018-05-11 19:43] LABS: BASOPHILS 0.3 % (0-2); EOSINOPHILS 0.4 % (0-7); HEMATOCRIT 44.4 % (36.0-48.0); HEMOGLOBIN 15.5 g/dL (12-16); IMMATURE GRANULOCYTES 0.6 % (0-5); LYMPHOCYTES 21.4 % (15-50); MCH 31.7 pg (26.0-34.0); MCHC 34.9 g/dL (31.0-37.0); MCV 90.8 fL (80.0-100.0); MEAN PLATELET VOLUME 10.8 fL (7.4-10.4); MONOCYTES 10.1 % (2-11); NEUTROPHILS 67.2 % (40-80); PLATELET COUNT 146 10x3/uL (130-400); RBC 4.89 10x6/uL (4.00-5.40); RDW 14.7 % (11.5-14.5); WBC 16.9 10x3/uL (4.8-10.8)
[2018-05-11 20:09] LABS: ALBUMIN 2.3 g/dL (3.4-5.0); ALKALINE PHOSPHATASE 152 U/L (46-116); ALT (SGPT) 20 U/L (10-68); BILIRUBIN - TOTAL 1.34 mg/dL (0.2-1.3); CALC OSMOLALITY 276 mosm/kg (275-300); CALCIUM 7.7 mg/dL (8.5-10.1); CARBON DIOXIDE 29.2 mmol/L (21.0-32.0); CHLORIDE - SERUM 96 mmol/L (98-107); CKMB 0.8 U/L (0.0-3.6); CREATINE KINASE 52 UL (21-215); CREATININE - SERUM 0.6 mg/dL (0.6-1.3); GLUCOSE 93 mg/dL (74-106); POTASSIUM - SERUM 3.1 mmol/L (3.5-5.1); PROTEIN - SERUM 5.8 g/dL (6.4-8.2); SODIUM 138 mmol/L (136-145); TROPONIN-I < 0.017 ng/mL (0.000-0.060); UREA NITROGEN 16 mg/dL (7-18); eGFR NON AFRICAN AMERICAN > 90 mL/min (90-120)
[2018-05-11 20:19] LABS: AMYLASE - SERUM 10 U/L (25-115)
[2018-05-11 20:20] LABS: LIPASE 40 U/L (73-393)
[2018-05-11 20:30] VITALS: BP 109/75; BMI 20.6
[2018-05-12] VITALS: BP 104/62
--- NOTE | 2018-05-12 | NUR ---
RESTING QUIETLY HAD XRAY OF ABDOMEN IV PATENT LEFT CVL LR AT 500CC'S BOLUS DONE X1 THEN RATE DECREASED TO 200CC'S/HR.
[2018-05-12 04:55] VITALS: BP 107/62
--- NOTE | 2018-05-12 08:00 | NUR ---
LYING IN BED,WITHOUT DISTRESS.MONITOR FOR NEEDS
[2018-05-12 08:05] VITALS: BP 104/54
--- NOTE | 2018-05-12 10:30 | NUR ---
ASSESSMENT PER FLOW SHEET. PT IS WITHOUT NEEDS.CALL LIGHT IN REACH
[2018-05-12 10:49] LABS: BASOPHILS 0.2 % (0-2); EOSINOPHILS 0.7 % (0-7); IMMATURE GRANULOCYTES 0.4 % (0-5); LYMPHOCYTES 12.8 % (15-50); MCH 31.3 pg (26.0-34.0); MCHC 34.5 g/dL (31.0-37.0); MCV 90.6 fL (80.0-100.0); MEAN PLATELET VOLUME 10.5 fL (7.4-10.4); MONOCYTES 8.9 % (2-11); RDW 14.7 % (11.5-14.5); WBC 13.8 10x3/uL (4.8-10.8)
[2018-05-12 10:50] LABS: HEMATOCRIT 33.6 % (36.0-48.0); HEMOGLOBIN 11.6 g/dL (12-16); PLATELET COUNT 231 10x3/uL (130-400); RBC 3.71 10x6/uL (4.00-5.40)
[2018-05-12 11:04] LABS: ALKALINE PHOSPHATASE 117 U/L (46-116); ALT (SGPT) 18 U/L (10-68); BILIRUBIN - TOTAL 0.59 mg/dL (0.2-1.3); CALCIUM 7.1 mg/dL (8.5-10.1); CHLORIDE - SERUM 103 mmol/L (98-107); CREATININE - SERUM 0.5 mg/dL (0.6-1.3); GLUCOSE 78 mg/dL (74-106); MAGNESIUM - SERUM 1.5 mg/dL (1.8-2.4); PHOSPHOROUS 2.5 mg/dL (2.5-4.9); PROTEIN - SERUM 4.7 g/dL (6.4-8.2); SODIUM 142 mmol/L (136-145); eGFR NON AFRICAN AMERICAN > 90 mL/min (90-120)
[2018-05-12 11:08] LABS: ALBUMIN 1.7 g/dL (3.4-5.0); CALC OSMOLALITY 280 mosm/kg (275-300); UREA NITROGEN 9 mg/dL (7-18)
[2018-05-12 11:12] LABS: POTASSIUM - SERUM 2.3 mmol/L (3.5-5.1)
[2018-05-12 12:02] VITALS: BP 122/66
[2018-05-12 13:23] VITALS: BMI 20.6
[2018-05-12 16:21] VITALS: BP 108/42
[2018-05-12 16:28] LABS: APPEARANCE CLEAR (CLEAR); BILIRUBIN NEGATIVE (NEGATIVE); COLOR YELLOW (YELLOW); GLUCOSE NEGATIVE (NEGATIVE); KETONE SMALL mg/dL (NEGATIVE); NITRITE POSITIVE (NEGATIVE); PROTEIN NEGATIVE (NEGATIVE); UROBILINOGEN NORMAL (NORMAL)
[2018-05-12 16:29] LABS: BACTERIA MODERATE /hpf (NONE SEEN); EPITHELIAL CELLS 0-5 /hpf (0-5); RED CELLS - URINE OCC /hpf (0-5)
[2018-05-12 17:14] VITALS: Ht 162.6 cm; Wt 42.9 kg
--- NOTE | 2018-05-12 19:02 | NUR ---
REMAINS WITHOUT NEEDS.WANTS PAIN MEDS WHEN TIME. WANTS FOOD SOON. STATES NAUSEA GETTING BETTER. CONT PLAN OF CARE
[2018-05-12 20:00] VITALS: BP 109/63
--- NOTE | 2018-05-12 20:00 | NUR ---
ASSESSMENT PER FLOWSHEET. IV PATENT LEFT SUBCLAVIAN SITE WITH D5W W/20MEQ KCL INFUSING AT 125CC'S/HR. SITE CLEAR.REFUSES SCD'S. SR UP X2 CALL LIGHT WITHIN REACH.
--- NOTE | 2018-05-12 20:20 | NUR ---
C/O ABD. PAIN NORCO TAB ONE PO GIVEN FOR PAIN CONTROL.
--- NOTE | 2018-05-12 21:00 | NUR ---
UP WITH HELP TO BR VOIDS WELL.
--- NOTE | 2018-05-12 23:27 | NUR ---
K+ LEVEL REDRAW=3.1. K+ 20MEQ RIDER HUNG PER Tripp LEA. TO RUN OVER 2 HOURS.
[2018-05-13 00:32] VITALS: BP 95/55
--- NOTE | 2018-05-13 01:40 | NUR ---
SECOND 20MEQ K+RIDER HUNG AT 50CC'S/HR PER Tripp LEA.
[2018-05-13 04:48] LABS: HEMATOCRIT 39.8 % (36.0-48.0); HEMOGLOBIN 13.7 g/dL (12-16); LYMPHOCYTES 18.7 % (15-50); MCH 31.6 pg (26.0-34.0); MCHC 34.4 g/dL (31.0-37.0); MCV 91.9 fL (80.0-100.0); MEAN PLATELET VOLUME 11.3 fL (7.4-10.4); NEUTROPHILS 70.1 % (40-80); PLATELET COUNT 212 10x3/uL (130-400); RBC 4.33 10x6/uL (4.00-5.40); RDW 16.3 % (11.5-14.5); WBC 11.2 10x3/uL (4.8-10.8)
[2018-05-13 04:51] LABS: ALKALINE PHOSPHATASE 177 U/L (46-116); BILIRUBIN - TOTAL 0.33 mg/dL (0.2-1.3); CARBON DIOXIDE 30.5 mmol/L (21.0-32.0); CHLORIDE - SERUM 103 mmol/L (98-107); PROTEIN - SERUM 5.7 g/dL (6.4-8.2); SODIUM 141 mmol/L (136-145)
[2018-05-13 05:38] LABS: CALCIUM 7.6 mg/dL (8.5-10.1); CREATININE - SERUM 0.5 mg/dL (0.6-1.3); GLUCOSE 75 mg/dL (74-106); eGFR NON AFRICAN AMERICAN > 90 mL/min (90-120)
[2018-05-13 05:39] LABS: ALBUMIN 2.3 g/dL (3.4-5.0); ALT (SGPT) 25 U/L (10-68); CALC OSMOLALITY 276 mosm/kg (275-300); MAGNESIUM - SERUM 1.9 mg/dL (1.8-2.4); UREA NITROGEN 5 mg/dL (7-18)
[2018-05-13 05:53] VITALS: BP 135/64
[2018-05-13 09:38] VITALS: BP 138/68
--- NOTE | 2018-05-13 12:21 | NUR ---
PATIENT OFF FLOOR.
--- NOTE | 2018-05-13 13:43 | NUR ---
PATIENT BACK REQUESTING PAIN MEDS. RUNNING 95 SR ON TELEMETRY
--- NOTE | 2018-05-13 15:35 | MORECARE ---
CASE MANAGEMENT DISCHARGE SUMMARY PATIENT: SHANIKA MARTINEZ UNIT: [id number] ADM DATE: 05/12/18 AGE: 47 : 70 SEX: F ROOM/BED: D.2214 AUTHOR: ERUMDOC PHYSICIAN: REFERRING PHYSICIAN: HANNAH SHORE MD DATE OF SERVICE: 05/13/18 Discharge Plan Patient Name: SHANIKA MARTINEZ Facility: [facility]:[place] : 1970 Planned Disposition: Home Anticipated Discharge Date: Discharge Date: Expected LOS: Initial Reviewer: [email or web address] Initial Review Date: 05/11/2018 Generated: 05/13/18 4:35 pm Comments DCP- Discharge Planning Updated by [email or web address]: Nathaly Sandoval on 05/13/18 2:[address] Patient Name: SHANIKA MARTINEZ Admission Status: Elective Accout number: [id number] Admission Date: 05-12-2018 : 1970 Admission Diagnosis: Attending: HANNAH SHORE Current LOS: 1 Anticipated DC Date: Planned Disposition: Home Primary Insurance: [employer] Discharge Planning Comments: CM MET WITH PATIENT TO ASSESS DISCHARGE PLANNING NEEDS. SHE STATED SHE PLANS TO RETURN HOME. SHE HAS A SHOWER CHAIR AND IS [place]KING FOR A [place]SC AT [place] HER WILL BE THE ONE TO TAKE HER HOME. SHE DENIES ANY HH AND STATED THAT SHE DOES NOT NEED IT AT THIS TIME. CM WILL CONTINUE TO FOLLOW AND ASSIST WITH DC PLANNING Butt Presser: Nathaly Sandoval DCPIA - Discharge Planning Initial Assessment Updated by [email or web address]: Nathaly Sandoval on 05/13/18 3:26 pm * Is the patient Alert and Oriented? Yes * How many steps to enter\exit or inside your home? * PCP SILVIANO * [facility] * Preadmission Environment Home with Family * ADLs Independent * Equipment Shower Chair * List name and contact numbers for known caregivers / representatives who currently or will assist patient after discharge: SAJI () * Verbal permission to speak to the caregivers and representatives has been obtained from the patient. N/A * Community resources currently utilized None * Additional services required to return to the preadmission environment? Yes * Can the patient safely return to the preadmission environment? Yes * Has this patient been hospitalized within the prior 30 days at any hospital? No Patient Name: SHANIKA MARTINEZ Page 55049 at 1535 All edits/amendments must be made on the electronic document DICTATION DATE: 05/13/181534 TOOL ROOM ATTENDANT: LUCINDA 05/13/181534 RPT#: [id number] DC DATE: STATUS: ADM IN [facility] [address] [place] [address] END OF REPORT
--- NOTE | 2018-05-13 16:23 | NUR ---
PATIENT NEW IV THERAPY INITIATED ON RIGHT FOREARM WITH 20G. IV DC'ED ON LEFT AC.
[2018-05-13 17:15] VITALS: BP 124/68
[2018-05-13 21:13] VITALS: BP 141/61
--- NOTE | 2018-05-14 | NUR ---
PATIENT REMAINS NPO WILL STILL BE NPO FOR GI LAB PROCEDURE.
[2018-05-14 01:17] VITALS: BP 116/60
[2018-05-14 04:33] VITALS: BP 148/70
--- NOTE | 2018-05-14 05:00 | NUR ---
LAB DRAWN FROM [facility] [[email or web address]] AND SENT TO LAB DEPT. PERMITS EXPLAINED AND SIGNED FOR EGD/COLONOSCOPY TO BE DONE BY DR. CABAN IN AM.
[2018-05-14 05:31] LABS: BASOPHILS 0.4 % (0-2); EOSINOPHILS 2.5 % (0-7); IMMATURE GRANULOCYTES 0.3 % (0-5); LYMPHOCYTES 26.1 % (15-50); MCH 31.1 pg (26.0-34.0); MCHC 34.1 g/dL (31.0-37.0); MCV 91.4 fL (80.0-100.0); MEAN PLATELET VOLUME 10.7 fL (7.4-10.4); MONOCYTES 10.1 % (2-11); NEUTROPHILS 60.6 % (40-80); PLATELET COUNT 213 10x3/uL (130-400); RBC 3.47 10x6/uL (4.00-5.40)
[2018-05-14 05:55] LABS: HEMATOCRIT 31.7 % (36.0-48.0); HEMOGLOBIN 10.8 g/dL (12-16); WBC 7.1 10x3/uL (4.8-10.8)
[2018-05-14 06:54] LABS: ALKALINE PHOSPHATASE 128 U/L (46-116); BILIRUBIN - TOTAL 0.26 mg/dL (0.2-1.3); CALCIUM 7.7 mg/dL (8.5-10.1); CARBON DIOXIDE 30.8 mmol/L (21.0-32.0); CHLORIDE - SERUM 105 mmol/L (98-107); POTASSIUM - SERUM 3.5 mmol/L (3.5-5.1); PROTEIN - SERUM 4.5 g/dL (6.4-8.2); SODIUM 142 mmol/L (136-145)
[2018-05-14 07:03] LABS: ALBUMIN 1.7 g/dL (3.4-5.0); ALT (SGPT) 16 U/L (10-68); CALC OSMOLALITY 280 mosm/kg (275-300); CREATININE - SERUM 0.7 mg/dL (0.6-1.3); GLUCOSE 139 mg/dL (74-106); UREA NITROGEN 1 mg/dL (7-18); eGFR NON AFRICAN AMERICAN > 90 mL/min (90-120)
[2018-05-14 09:12] VITALS: BP 118/60
--- NOTE | 2018-05-14 10:16 | NUR ---
SCD'S ON. CVL DRESSING CHANGE COMPLETED BY TOMASZ HU. NO FURTHER NEEDS AT THIS TIME
[2018-05-14 12:58] VITALS: BP 118/71
--- NOTE | 2018-05-14 13:45 | NUR ---
Nutrition Follow Up: Chart reviewed. Pt is NPO and is scheduled for EGD, colonoscopy today. No BM since admit Labs reviewed Meds noted including D5 LR @ 125 ml/hr providing 540 kcal/d Rec advancing diet when medically feasible. RD following.
--- NOTE | 2018-05-14 14:50 | NUR ---
PATIENT PROCEDURE POSTPONED UNTIL TOMORROW. SPOKE WITH ASH PORTER. TELEMETRY HAS NEW ELECTRODES AND BATTERIES. ICE CHIPS GIVEN. NO NEEDS AT THIS TIME
[2018-05-14 15:17] VITALS: BP 106/60
--- NOTE | 2018-05-14 16:16 | NUR ---
ENEMA IS UNAVAILABLE PER PHARMACY ([facility]) SPOKE WITH ASH WITH DR CABAN TO ADVISE. STATED SHE WOULD JUST HAVE TO RECEIVE THE ENEMA UPON DELIVERY
[2018-05-14 19:00] VITALS: BP 113/63
[2018-05-15 00:58] VITALS: BP 103/52
[2018-05-15 05:21] LABS: BASOPHILS 0.6 % (0-2); EOSINOPHILS 6.8 % (0-7); HEMATOCRIT 28.7 % (36.0-48.0); HEMOGLOBIN 9.5 g/dL (12-16); IMMATURE GRANULOCYTES 0.4 % (0-5); MCH 30.5 pg (26.0-34.0); MCHC 33.1 g/dL (31.0-37.0); MCV 92.3 fL (80.0-100.0); MEAN PLATELET VOLUME 10.5 fL (7.4-10.4); MONOCYTES 11.9 % (2-11); NEUTROPHILS 44.3 % (40-80); PLATELET COUNT 199 10x3/uL (130-400); RBC 3.11 10x6/uL (4.00-5.40); RDW 15.5 % (11.5-14.5)
[2018-05-15 05:22] LABS: WBC 5.1 10x3/uL (4.8-10.8)
[2018-05-15 05:44] VITALS: BP 98/56
[2018-05-15 05:48] LABS: ALBUMIN 1.4 g/dL (3.4-5.0); ALKALINE PHOSPHATASE 107 U/L (46-116); BILIRUBIN - TOTAL 0.11 mg/dL (0.2-1.3); CALCIUM 7.4 mg/dL (8.5-10.1); CARBON DIOXIDE 27.7 mmol/L (21.0-32.0); CHLORIDE - SERUM 110 mmol/L (98-107); CREATININE - SERUM 0.6 mg/dL (0.6-1.3); GLUCOSE 135 mg/dL (74-106); POTASSIUM - SERUM 3.4 mmol/L (3.5-5.1); PROTEIN - SERUM 4.3 g/dL (6.4-8.2); SODIUM 145 mmol/L (136-145); eGFR NON AFRICAN AMERICAN > 90 mL/min (90-120)
[2018-05-15 05:55] LABS: ALT (SGPT) 8 U/L (10-68); CALC OSMOLALITY 286 mosm/kg (275-300); UREA NITROGEN 2 mg/dL (7-18)
--- NOTE | 2018-05-15 06:30 | NUR ---
POTASSIUM 3.4 THIS AM. STARTED FIRST OF TWO KCL 20 MEQ RIDER AT 50 ML/HR PER ELECTROLYTE PROTOCOL. PT HAS CENTRAL LINE. SECOND RIDER WILL BE DUE AT 0830.
--- NOTE | 2018-05-15 08:12 | MORECARE ---
CASE MANAGEMENT DISCHARGE SUMMARY PATIENT: SHANIKA MARTINEZ UNIT: [id number] ADM DATE: 05/12/18 AGE: 47 : 70 SEX: F ROOM/BED: D.2214 AUTHOR: ERUM,DOC PHYSICIAN: REFERRING PHYSICIAN: HANNAH SHORE MD DATE OF SERVICE: 05/15/18 Discharge Plan Patient Name: SHANIKA MARTINEZ Facility: [facility]:[place] : 1970 Planned Disposition: Home Anticipated Discharge Date: Discharge Date: Expected LOS: Initial Reviewer: [email or web address] Initial Review Date: 05/11/2018 Generated: 05/15/18 9:12 am Comments DCP- Discharge Planning Updated by [email or web address]: Nathaly Sandoval on 05/15/18 7:[address] ORDER SENT TO [facility] FOR BEDSIDE COMMODE DCP- Discharge Planning Updated by [email or web address]: Nathaly Sandoval on 05/13/18 2:[address] Patient Name: SHANIKA MARTINEZ Admission Status: Elective Accout number: [id number] Admission Date: 05-12-2018 : 1970 Admission Diagnosis: Attending: HANNAH SHORE Current LOS: 1 Anticipated DC Date: Planned Disposition: Home Primary Insurance[facility] Discharge Planning Comments: CM MET WITH PATIENT TO ASSESS DISCHARGE PLANNING NEEDS. SHE STATED SHE PLANS TO RETURN HOME. SHE HAS A SHOWER CHAIR AND [place] ASKING FOR A BSC AT [place]. HER WILL BE THE ONE TO TAKE HER HOME. SHE DENIES ANY HH AND STATED THAT SHE DOES NOT NEED IT AT THIS TIME. CM WILL CONTINUE TO FOLLOW AND ASSIST WITH DC PLANNING Archivist Political History: Nathaly Sandoval DCPIA - Discharge Planning Initial Assessment Updated by [email or web address]: Nathaly Sandoval on 05/13/18 3:26 pm * Is the patient Alert and Oriented? Yes * How many steps to enter\exit or inside your home? * PCP SILVINAO * [facility] * Preadmission Environment Home with Family * ADLs Independent * Equipment Shower Chair * List name and contact numbers for known caregivers / representatives who currently or will assist patient after discharge: SAJI () * Verbal permission to speak to the caregivers and representatives has been obtained from the patient. N/A * Community resources currently utilized None * Additional services required to return to the preadmission environment? Yes * Can the patient safely return to the preadmission environment? Yes * Has this patient been hospitalized within the prior 30 days at any hospital? No External Providers External Provider: [facility] Next Contact Date: Service Request Date: Service Type: Resolution: Reviewer: Comments: Last DP export: 05/13/18 2:35 Patient Name: SHANIKA MARTINEZ Page [phone] at 0812 All edits/amendments must be made on the electronic document DICTATION DATE: 05/15/18811 MAINTENANCE PERSON: LUCINDA 05/15/18811 RPT#: [id number] DC DATE: STATUS: ADM IN [facility] [address] [place] [address] END OF REPORT
[2018-05-15 09:00] VITALS: BP 108/54
--- NOTE | 2018-05-15 11:36 | MORECARE ---
CASE MANAGEMENT DISCHARGE SUMMARY PATIENT: SHANIKA MARTINEZ UNIT: [id number] ADM DATE: 05/12/18 AGE: 47 : 70 SEX: F ROOM/BED: D.2214 AUTHOR: ERUM,DOC PHYSICIAN: REFERRING PHYSICIAN: HANNAH SHORE MD DATE OF SERVICE: 05/15/18 Discharge Plan Patient Name: SHANIKA MARTINEZ Facility: [facility]:[place] : 1970 Planned Disposition: Home Anticipated Discharge Date: Discharge Date: Expected LOS: Initial Reviewer: [email or web address] Initial Review Date: 05/11/2018 Generated: 05/15/18 12:36 pm Comments DCP- Discharge Planning Updated by [email or web address]: Nathaly Sandoval on 05/15/18 10:[address] EDUARD WITH [facility] CALLED AND STATED THAT THEY WOULD DELIVER THE BSC TO HOSPITAL TODAY, INCASE THE PATIENT DISCHARGED HOME OVER THE WEEKEND DCP- Discharge Planning Updated by [email or web address]: Nathaly Sandoval on 05/15/18 7:[address] ORDER SENT TO [facility] FOR BEDSIDE COMMODE DCP- Discharge Planning Updated by [id number]: Nathaly Sandoval on 05/13/18 2:[address] Patient Name: SHANIKA MARTINEZ Admission Status: Elective Accout number: [id number] Admission Date: 05-12-2018 : 1970 Admission Diagnosis: Attending: HANNAH SHORE Current LOS: 1 Anticipated DC Date: Planned Disposition: Home Primary Insurance: [employer] Discharge Planning Comments: CM MET WITH PATIENT TO ASSESS DISCHARGE PLANNING NEEDS. SHE STATED SHE PLANS TO RETURN HOME. SHE HAS A SHOWER CHAIR AND [place] FOR A [place]SC AT [place]. HER WILL BE THE ONE TO TAKE HER HOME. SHE DENIES ANY HH AND STATED THAT SHE DOES NOT NEED IT AT THIS TIME. CM WILL CONTINUE TO FOLLOW AND ASSIST WITH DC PLANNING Tray Drier Operator: Nathaly Sandoval DCPIA - Discharge Planning Initial Assessment Updated by [email or web address]: Nathaly Sandoval on 05/13/18 3:26 pm * Is the patient Alert and Oriented? Yes * How many steps to enter\exit or inside your home? * PCP SILVIANO * [facility] * Preadmission Environment Home with Family * ADLs Independent * Equipment Shower Chair * List name and contact numbers for known caregivers / representatives who currently or will assist patient after discharge: SAJI () * Verbal permission to speak to the caregivers and representatives has been obtained from the patient. N/A * Community resources currently utilized None * Additional services required to return to the preadmission environment? Yes * Can the patient safely return to the preadmission environment? Yes * Has this patient been hospitalized within the prior 30 days at any hospital? No Last DP export: 05/15/18 7:12 Patient Name: SHANIKA MARTINEZ Page 23898 at 1136 All edits/amendments must be made on the electronic document DICTATION DATE: 05/15/181135 FUR DRESSER: LUCINDA 05/15/181135 RPT#: [id number] DC DATE: STATUS: ADM IN [facility] [address] [place] [address] END OF REPORT
[2018-05-15 13:13] VITALS: BP 113/65
[2018-05-15 16:39] VITALS: BP 100/60
[2018-05-16] VITALS: BP 134/75
[2018-05-16 04:00] VITALS: BP 116/73
[2018-05-16 06:26] LABS: BASOPHILS 0.6 % (0-2); EOSINOPHILS 4.6 % (0-7); HEMATOCRIT 30.5 % (36.0-48.0); HEMOGLOBIN 10.3 g/dL (12-16); IMMATURE GRANULOCYTES 0.3 % (0-5); LYMPHOCYTES 39.7 % (15-50); MCH 30.9 pg (26.0-34.0); MCHC 33.8 g/dL (31.0-37.0); MCV 91.6 fL (80.0-100.0); MEAN PLATELET VOLUME 10.9 fL (7.4-10.4); MONOCYTES 13.3 % (2-11); NEUTROPHILS 41.5 % (40-80); PLATELET COUNT 234 10x3/uL (130-400); RBC 3.33 10x6/uL (4.00-5.40); RDW 15.4 % (11.5-14.5); WBC 6.3 10x3/uL (4.8-10.8)
[2018-05-16 07:03] LABS: ALBUMIN 1.7 g/dL (3.4-5.0); ALKALINE PHOSPHATASE 112 U/L (46-116); ALT (SGPT) 8 U/L (10-68); CALCIUM 7.7 mg/dL (8.5-10.1); CHLORIDE - SERUM 110 mmol/L (98-107); CREATININE - SERUM 0.5 mg/dL (0.6-1.3); MAGNESIUM - SERUM 1.4 mg/dL (1.8-2.4); PHOSPHOROUS 1.7 mg/dL (2.5-4.9); PROTEIN - SERUM 4.8 g/dL (6.4-8.2); SODIUM 144 mmol/L (136-145); T4 THYROXIN - FREE 1.26 ng/dL (0.76-1.46); THYROID STIMULATING HORMONE 5.68 uIU/mL (0.36-3.74); eGFR NON AFRICAN AMERICAN > 90 mL/min (90-120)
[2018-05-16 07:15] LABS: UREA NITROGEN 2 mg/dL (7-18)
[2018-05-16 07:17] LABS: CALC OSMOLALITY 280 mosm/kg (275-300); GLUCOSE 68 mg/dL (74-106); PRE-ALBUMIN 6.7 mg/dL (18.0-35.7)
--- NOTE | 2018-05-16 08:00 | NUR ---
PATIENT RESTING IN BED, REPORTS LOWER ABDOMINAL PAIN CONSISTANT SINCE ADMIT. ANCELMONET IS UP INDEPENDENTLY TO RESTROOM, A&O, PATIENT REFUSES TO WEAR TELEMETRY DUE TO IT MAKES HER ITCH. NO RASH NOTED AT SITE. CALL LIGHT WITHIN REACH. PAIN MEDICATIONS WILL BE ADMINISTERED AT APPROPRIATE TIMES.
[2018-05-16 08:32] VITALS: BP 104/79
--- NOTE | 2018-05-16 09:12 | NUR ---
PATIENT REFUSES TO WEAR TELEMETRY STATING THAT "IT MAKES ME ITCH". TELEMETRY REMOVED AND RETURNED TO MED 2
[2018-05-16 13:43] VITALS: BP 100/72
[2018-05-16 16:20] VITALS: BP 114/59
--- NOTE | 2018-05-16 18:33 | NUR ---
PATIENT RESTING WITH NO NEEDS VOICED. CL IN REACH
[2018-05-16 20:00] VITALS: BP 113/64
[2018-05-17] VITALS: BP 120/73
[2018-05-17 04:00] VITALS: BP 116/60
[2018-05-17 06:29] LABS: ALBUMIN 1.6 g/dL (3.4-5.0); ALKALINE PHOSPHATASE 113 U/L (46-116); ALT (SGPT) 7 U/L (10-68); BILIRUBIN - TOTAL 0.15 mg/dL (0.2-1.3); CARBON DIOXIDE 26.5 mmol/L (21.0-32.0); CHLORIDE - SERUM 112 mmol/L (98-107); CREATININE - SERUM 0.6 mg/dL (0.6-1.3); GLUCOSE 86 mg/dL (74-106); PROTEIN - SERUM 4.6 g/dL (6.4-8.2); SODIUM 147 mmol/L (136-145); eGFR NON AFRICAN AMERICAN > 90 mL/min (90-120)
[2018-05-17 06:30] LABS: BASOPHILS 0.3 % (0-2); EOSINOPHILS 3.4 % (0-7); HEMATOCRIT 31.3 % (36.0-48.0); HEMOGLOBIN 10.5 g/dL (12-16); IMMATURE GRANULOCYTES 0.4 % (0-5); LYMPHOCYTES 35.8 % (15-50); MCH 30.9 pg (26.0-34.0); MCHC 33.5 g/dL (31.0-37.0); MCV 92.1 fL (80.0-100.0); MEAN PLATELET VOLUME 10.5 fL (7.4-10.4); MONOCYTES 10.3 % (2-11); NEUTROPHILS 49.8 % (40-80); PLATELET COUNT 269 10x3/uL (130-400); WBC 7.1 10x3/uL (4.8-10.8)
[2018-05-17 06:31] LABS: CALC OSMOLALITY 287 mosm/kg (275-300); POTASSIUM - SERUM 3.3 mmol/L (3.5-5.1); UREA NITROGEN 3 mg/dL (7-18)
--- NOTE | 2018-05-17 08:13 | NUR ---
PATIENT RESTING WITH NO NEEDS VOICED AT THIS TIME. ENTERPRISE SERVICES MANAGER FOR PAIN CONTROL. RESPIRATIONS NON-LABORED. CALL LIGHT IN REACH
[2018-05-17 08:45] VITALS: BP 114/57
[2018-05-17 11:45] VITALS: BP 117/60
--- NOTE | 2018-05-17 12:32 | NUR ---
PATIENT OFF FLOOR FOR CT SCAN
[2018-05-17 18:01] VITALS: BP 115/49
[2018-05-17 20:00] VITALS: BP 109/49
[2018-05-18] VITALS: BP 117/74
--- NOTE | 2018-05-18 00:58 | NUR ---
PT RESTING. DAMILY AT BEDSIDE. NO SIGNS OF DISTRESS AT THIS TIME
[2018-05-18 04:00] VITALS: BP 137/55
--- NOTE | 2018-05-18 04:46 | NUR ---
RN note Resting on rt side awake with no s/s of distress stated no needs.
--- NOTE | 2018-05-18 05:39 | NUR ---
PT WITH TEMPERATURE 101.7
[2018-05-18 05:53] LABS: BASOPHILS 0.2 % (0-2); EOSINOPHILS 2.7 % (0-7); HEMATOCRIT 29.9 % (36.0-48.0); HEMOGLOBIN 9.9 g/dL (12-16); IMMATURE GRANULOCYTES 0.3 % (0-5); LYMPHOCYTES 22.6 % (15-50); MCH 30.6 pg (26.0-34.0); MCHC 33.1 g/dL (31.0-37.0); MCV 92.3 fL (80.0-100.0); MEAN PLATELET VOLUME 10.3 fL (7.4-10.4); MONOCYTES 11.2 % (2-11); PLATELET COUNT 259 10x3/uL (130-400); RBC 3.24 10x6/uL (4.00-5.40); WBC 8.8 10x3/uL (4.8-10.8)
[2018-05-18 06:37] LABS: ALBUMIN 1.7 g/dL (3.4-5.0); ALKALINE PHOSPHATASE 114 U/L (46-116); ALT (SGPT) 10 U/L (10-68); BILIRUBIN - TOTAL 0.16 mg/dL (0.2-1.3); CALC OSMOLALITY 276 mosm/kg (275-300); CARBON DIOXIDE 26.7 mmol/L (21.0-32.0); CHLORIDE - SERUM 107 mmol/L (98-107); CREATININE - SERUM 0.6 mg/dL (0.6-1.3); GLUCOSE 104 mg/dL (74-106); PROTEIN - SERUM 4.7 g/dL (6.4-8.2); SODIUM 141 mmol/L (136-145); UREA NITROGEN 2 mg/dL (7-18); eGFR NON AFRICAN AMERICAN > 90 mL/min (90-120)
[2018-05-18 06:39] LABS: CALCIUM 6.9 mg/dL (8.5-10.1)
--- NOTE | 2018-05-18 07:00 | NUR ---
REPORT RECIEVED ASSUMED CARE. PATIENT IN BED WITH IV INTACT. NO COMPLAINTS OR SIGNS OF DISTRESS. CALL LIGHT WITHIN REACH.
[2018-05-18 08:45] VITALS: BP 105/65
[2018-05-18 13:05] VITALS: BP 116/68
--- NOTE | 2018-05-18 15:23 | NUR ---
NUTRITION F/U PT CURRENTLY NPO FOR PROCEDURE. TO RESUME DIET AFTER PROCEDURE. WILL CONTINUE TO MONITOR PT PROGRESS. RD FOLLOWING
--- NOTE | 2018-05-18 16:30 | NUR ---
GAVE PATIENT 8MG OF ZOFRAN IV PUSH AT THIS TIME, SLOWLY OVER 3 MINUTES. NAUSEATED, WITH NO EMESIS. PATIENT STATED CARPET INSPECTOR FINISHED PUMP IS MESSED UP AND NOT LETTING HER PUSH IT BUT EVERY 30 TO 45 MINUTES. TOLD PATIENT TO PRESS THE BUTTON NOW WHILE IT IS LIT UP AND WE WILL TIME IT TO MAKE SURE THE PUMP IS WORKING. ALSO CHECKED THE SETTINGS AND SYRINGE. NO PROBLEMS NOTED. PATIENT WAITED 10 MINUTES AND LIGHT CAME BACK ON TO PUSH BUTTON AGAIN IF NEEDED. DOSE DELIVERED PER CARPET INSPECTOR FINISHED WITH NO PROBLEM. CALL LIGHT WITHIN REACH.
[2018-05-18 16:35] VITALS: BP 100/55
--- NOTE | 2018-05-18 17:50 | NUR ---
PATIENT SITTING UP IN BED EATING. NOTIFIED PATIENT ABOUT NEEDING STOOL AND URINE SAMPLE. VERBALIZED UNDERSTANDING. IV INTACT. NO COMPLAINTS. CALL LIGHTW ITHIN REACH.
[2018-05-18 18:50] LABS: MAGNESIUM - SERUM 1.6 mg/dL (1.8-2.4)
[2018-05-18 20:00] VITALS: BP 119/56
[2018-05-18 21:33] LABS: APPEARANCE CLEAR (CLEAR); BILIRUBIN NEGATIVE (NEGATIVE); COLOR YELLOW (YELLOW); GLUCOSE NEGATIVE (NEGATIVE); KETONE NEGATIVE (NEGATIVE); NITRITE NEGATIVE (NEGATIVE); PROTEIN NEGATIVE (NEGATIVE); UROBILINOGEN NORMAL (NORMAL)
[2018-05-18 21:35] LABS: BACTERIA FEW /hpf (NONE SEEN); EPITHELIAL CELLS 0-5 /hpf (0-5); RED CELLS - URINE RARE /hpf (0-5); WHITE CELLS - URINE 0-5 /hpf (0-5)
[2018-05-19] VITALS: BP 122/66
[2018-05-19 03:11] LABS: OVA + PARASITE EXAM Final report (())
[2018-05-19 05:00] VITALS: BP 90/52
[2018-05-19 06:08] LABS: ALBUMIN 1.7 g/dL (3.4-5.0); ALKALINE PHOSPHATASE 109 U/L (46-116); ALT (SGPT) 10 U/L (10-68); BILIRUBIN - TOTAL 0.15 mg/dL (0.2-1.3); CALC OSMOLALITY 282 mosm/kg (275-300); CALCIUM 7.4 mg/dL (8.5-10.1); CARBON DIOXIDE 25.9 mmol/L (21.0-32.0); CHLORIDE - SERUM 110 mmol/L (98-107); CREATININE - SERUM 0.6 mg/dL (0.6-1.3); GLUCOSE 80 mg/dL (74-106); MAGNESIUM - SERUM 1.7 mg/dL (1.8-2.4); PHOSPHOROUS 2.3 mg/dL (2.5-4.9); POTASSIUM - SERUM 3.5 mmol/L (3.5-5.1); PROTEIN - SERUM 4.7 g/dL (6.4-8.2); SODIUM 144 mmol/L (136-145); eGFR NON AFRICAN AMERICAN > 90 mL/min (90-120)
[2018-05-19 06:24] LABS: UREA NITROGEN 3 mg/dL (7-18)
[2018-05-19 06:53] LABS: BASOPHILS 0.1 % (0-2); EOSINOPHILS 1.9 % (0-7); HEMATOCRIT 29.4 % (36.0-48.0); HEMOGLOBIN 9.8 g/dL (12-16); IMMATURE GRANULOCYTES 0.4 % (0-5); LYMPHOCYTES 38.4 % (15-50); MCH 30.7 pg (26.0-34.0); MCHC 33.3 g/dL (31.0-37.0); MCV 92.2 fL (80.0-100.0); MEAN PLATELET VOLUME 10.7 fL (7.4-10.4); MONOCYTES 10.3 % (2-11); NEUTROPHILS 48.9 % (40-80); PLATELET COUNT 285 10x3/uL (130-400); RBC 3.19 10x6/uL (4.00-5.40); RDW 16.4 % (11.5-14.5); WBC 8.4 10x3/uL (4.8-10.8)
--- NOTE | 2018-05-19 09:00 | NUR ---
ASSESSMENT PER FLOW SHEET. PT IS WITHOUT DISTRESS.DELINQUENT NOTICE MACHINE OPERATOR FOR PAIN.MONITORF OR NEEDS
--- NOTE | 2018-05-19 09:04 | NUR ---
SITTING UP IN BED,WITHOUT DISTRESS.SHE IS EATING BREAKFAST.CALL LIGHT IN REACH
[2018-05-19 09:21] VITALS: BP 115/50
[2018-05-19 12:51] VITALS: BP 101/56
--- NOTE | 2018-05-19 15:22 | OP ---
PATIENT NAME: SHANIKA MARTINEZ MEDICAL RECORD: [id number] :[birth year] LOCATION:[address] [id number] ADMISSION DATE:05/12/18 SURGEON: JUAN F CABAN MD DATE OF OPERATION: 05/15/2018 PREOPERATIVE DIAGNOSES: Abdominal pain, suprapubic with tenderness, rule out proctitis or pouchitis. POSTOPERATIVE DIAGNOSES: 1. Atrophic pangastritis. 2. Normal appearance of the Fabiano-en-Y duodenal jejunostomy. 3. Mild proctitis and then more cephalad, I could not determine whether there was a small bowel anastomosis or whether the colon was just very bland and the lacked vascularity. PROCEDURE: 1. Esophagogastroduodenoscopy with fundal and mid esophageal biopsies. 2. Flexible sigmoidoscopy with biopsy. SURGEON: Juan F Caban MD METALSMITH HELPER: None. BLOOD LOSS: Minimal. ANESTHESIA: IV sedation per the anesthesia staff. COMPLICATIONS: None. ENDOSCOPIC COURSE: The patient was conveyed to the endoscopy suite electively on 05/15/2018. IV sedation was induced by the anesthesia staff. A bite block was inserted. A gastroscope was inserted into the mouth. It was advanced easily into the hypopharynx. The esophagus was easily intubated as were the stomach and duodenum. There was a prior history of an anastomosis between the duodenum and jejunum, also a Fabiano-en-Y. I was able to advance the endoscope to the wide portion of the Fabiano-en-Y. I then intubated both lumens. I withdrew up into the duodenum. I could not definitely determine where the anastomosis was. I was unable to visualize the ampulla. A retroflexed view was obtained in the stomach. Fundal biopsies were obtained to rule out H. pylori. I then withdrew into the mid esophagus and mid esophageal biopsies were obtained to rule out eosinophilic esophagitis. The endoscope was then withdrawn under direct vision. The patient was turned 180 degrees and placed in the Menendez position. A digital rectal examination was performed. A colonoscope was inserted through the anus. It was advanced from what appeared to be the rectum and then into some bowel, which could represent small bowel. I did not identify a definite J pouch. The patient states that she has undergone some type of colon resection for ulcerative colitis. This could have been a subtotal colectomy with an ileorectostomy or it could have been a total proctocolectomy with a J-pouch. I withdrew into the rectum. A retroflexed view was obtained in the rectum and I identified no anastomosis. It appeared to be a normal anus on retroflexion. I then readvanced the endoscope several times. I did not see any severe colitis. It was rather more of a mild colitis with loss of vascularity and edema in the bowel wall. As I said before, this could actually represent a small bowel. Random colon and rectal biopsies were obtained. These were cold endoscopic OPERATIVE REPORT [id number] SHANIKA MARTINEZ biopsies. I then removed the endoscope under direct vision. The patient was essentially unprepped. I advanced the colonoscope as far as I could until I ran into a solid stool that I could not traverse. She is on steroid enemas and she states that they really are not helping very much. I will review her x-ray images again now that I have performed an endoscopy on the patient. TRANSINT:[id number] Voice Confirmation ID: [id number] DOCUMENT ID: [id number] 05/19/2018 Edited for information management officer error, [email or web address]. JUAN F CABAN MD at 1522 CC: HANNAH SHORE and JAMIE ALEXANDER [id number] DICTATION DATE: 05/15/182025 GROUP MARKETING VP: 05/15/182128 ADM IN [facility] [address] [place] [address]
[2018-05-19 17:31] VITALS: BP 118/46
--- NOTE | 2018-05-19 18:32 | NUR ---
PT HAS BEEN CRYING AND STATES HER PAIN PUMP AND IV WENT OFF. IV FLUID INFUSING AND NEGATIVE TURNER IS WORKING.INSTRUCTED PT TO PUSH BUTTON WHEN GREEN.SHE PUSHED BUTTON AND NEGATIVE TURNER SOUNDED GIVNG MED.PT INFORMED TO PUSH IN 10 MINUTES.CONT PLAN OF CARE
[2018-05-19 20:00] VITALS: BP 110/62
--- NOTE | 2018-05-19 20:00 | NUR ---
PATIENT RESTING IN BED WITH NO S/S OF DISTRESS. PATIENT STATED HER PAIN IS BAD AND SHE WILL NOT BE ABLE TO SLEEP. I OFFERED THE PATIENT A BOLUS DOSE OF PAIN MEDICATION TO HELP GET HER PAIN UNDER CONTROL. THE PATIENT AGREED. THE PATIENT ALSO STATED HER PAIN PUMP IS NOT WORKING AND NEVER TURNS GREEN. THE PATIENT'S LIGHT WAS GREEN AT THAT TIME AND HER VOLUME INFUSED INDICATED THE PATIENT HAD USED 1.50. I TOLD THE PATIENT IF SHE NEEDED A DOSE OF PAIN MEDICATION THAT SHE COULD PUSH THE BUTTON AT THAT TIME AND WE COULD MAKE SURE IT WAS WORKING. THE PATIENT PUSHED HER BUTTON. THE LIGHT BLINKED GREEN AND THE MESSAGE ON THE CHANNEL STATED DELIVERING. I EDUCATED THE PATIENT AGAIN ON HOW THE PULVERIZER WORKS. THE PATIENT VERBALIZED UNDERSTANDING AND DENIES OTHER NEEDS AT THIS TIME. BED IN LOWEST POSITION AND CALL LIGHT WITHIN REACH. ENCOURAGED THE PATIENT TO CALL IF SHE HAS NEEDS. WILL CONTINUE TO MONITOR. WILL ADMINISTER BOLUS DOSE WITH NIGHT MEDS.
[2018-05-20] VITALS: BP 134/81
[2018-05-20 04:00] VITALS: BP 128/72
[2018-05-20 05:06] LABS: BASOPHILS 0.4 % (0-2); EOSINOPHILS 3.1 % (0-7); HEMATOCRIT 28.6 % (36.0-48.0); HEMOGLOBIN 9.5 g/dL (12-16); IMMATURE GRANULOCYTES 0.2 % (0-5); MCH 30.7 pg (26.0-34.0); MCHC 33.2 g/dL (31.0-37.0); MCV 92.6 fL (80.0-100.0); MEAN PLATELET VOLUME 10.6 fL (7.4-10.4); MONOCYTES 10.1 % (2-11); NEUTROPHILS 45.2 % (40-80); PLATELET COUNT 316 10x3/uL (130-400); RBC 3.09 10x6/uL (4.00-5.40); RDW 16.4 % (11.5-14.5); WBC 8.4 10x3/uL (4.8-10.8)
[2018-05-20 05:18] LABS: ALBUMIN 1.8 g/dL (3.4-5.0); ALKALINE PHOSPHATASE 102 U/L (46-116); BILIRUBIN - TOTAL 0.14 mg/dL (0.2-1.3); CALC OSMOLALITY 284 mosm/kg (275-300); CALCIUM 7.6 mg/dL (8.5-10.1); CHLORIDE - SERUM 110 mmol/L (98-107); CREATININE - SERUM 0.5 mg/dL (0.6-1.3); GLUCOSE 84 mg/dL (74-106); MAGNESIUM - SERUM 1.9 mg/dL (1.8-2.4); PHOSPHOROUS 2.7 mg/dL (2.5-4.9); POTASSIUM - SERUM 3.6 mmol/L (3.5-5.1); PROTEIN - SERUM 5.2 g/dL (6.4-8.2); SODIUM 145 mmol/L (136-145); UREA NITROGEN 3 mg/dL (7-18); eGFR NON AFRICAN AMERICAN > 90 mL/min (90-120)
[2018-05-20 05:20] LABS: ALT (SGPT) 6 U/L (10-68)
--- NOTE | 2018-05-20 08:00 | NUR ---
ASSESSMENT PER FLOW SHEET. PT IS WITHOUT DISTRESS. SHE HAS BEEN SITTING OUT IN NINA IN CHAIR. PT STATES SHE WAS LONELY. PT BACK TO ROOM.CALL LIGHT IN REACH
[2018-05-20 08:15] VITALS: BP 115/72
--- NOTE | 2018-05-20 10:47 | NUR ---
NUTRITION F/U PROCALAMINE @ 50 CC/HR. TOLERATING REG DIET WITH GOOD INTAKE BREAKFAST THIS AM. WILL CONTINUE TO PROVIDE DIET, HONOR FOOD PREFERENCES, MONITOR INTAKE. RD FOLLOWING
--- NOTE | 2018-05-20 12:00 | NUR ---
AWAKENS INT. PT IS WITHOUT SIGNS OF DISTRESS
[2018-05-20 14:42] VITALS: BP 112/62
--- NOTE | 2018-05-20 18:54 | NUR ---
DAUGHTER HAS BEEN VISITING. PASSWORD HAS BEEN SET UP BY PT.SHE IS WITHOUT SIGNS OF PAIN.CONT PLAN OF CARE
--- NOTE | 2018-05-20 19:00 | NUR ---
PT ALERT AND ORIENTED. PT STATED PAIN 8/10 EVEN WITH ART DEPARTMENT HEAD PUMP. PT NPO WAITING CT CAN. BOWEL SOUNDS ACTIVE ALL 4 QUADS. PT STATES BOWEL MOVEMENT TODAY. NO OTHER ISSUES AT THIS TIME.
--- NOTE | 2018-05-20 19:47 | NUR ---
PT LEFT FLOOR WITH CT STAFF FOR SCAN VIA WHEELCHAIR.
[2018-05-20 20:00] VITALS: BP 123/63
--- NOTE | 2018-05-20 20:12 | NUR ---
PT BACK FROM CT SCAN. PT COMPLETED BUT FEEL NAUSEATED AFTERWARDS. PT HAS EMESIS BAG IN CASE OF GETTING SICK. ADMINISTERED SCHEDULED PEPCID. PT STATED SHE WOULD SEE IF THE PEPCID HELPED NAUSEA AND IF NOT WILL CALL THIS NURSE BACK FOR ZOFRAN.
[2018-05-21] VITALS: BP 136/82
--- NOTE | 2018-05-21 03:35 | NUR ---
RESTING IN BED RESP UNLABORED NO APPARENT DISTRESS CALL JASSON KEBEDE
[2018-05-21 04:00] VITALS: BP 108/66
[2018-05-21 05:13] LABS: BASOPHILS 0.4 % (0-2); EOSINOPHILS 2.7 % (0-7); HEMATOCRIT 30.5 % (36.0-48.0); HEMOGLOBIN 10.2 g/dL (12-16); IMMATURE GRANULOCYTES 0.4 % (0-5); LYMPHOCYTES 40.1 % (15-50); MCH 30.9 pg (26.0-34.0); MCHC 33.4 g/dL (31.0-37.0); MCV 92.4 fL (80.0-100.0); MEAN PLATELET VOLUME 10.5 fL (7.4-10.4); MONOCYTES 10.5 % (2-11); NEUTROPHILS 45.9 % (40-80); PLATELET COUNT 366 10x3/uL (130-400); RDW 16.8 % (11.5-14.5); WBC 7.5 10x3/uL (4.8-10.8)
[2018-05-21 05:30] LABS: ALBUMIN 1.8 g/dL (3.4-5.0); ALKALINE PHOSPHATASE 103 U/L (46-116); ALT (SGPT) 6 U/L (10-68); BILIRUBIN - TOTAL 0.16 mg/dL (0.2-1.3); CALC OSMOLALITY 281 mosm/kg (275-300); CALCIUM 7.7 mg/dL (8.5-10.1); CARBON DIOXIDE 28.8 mmol/L (21.0-32.0); CHLORIDE - SERUM 107 mmol/L (98-107); CREATININE - SERUM 0.5 mg/dL (0.6-1.3); GLUCOSE 85 mg/dL (74-106); POTASSIUM - SERUM 3.7 mmol/L (3.5-5.1); PROTEIN - SERUM 5.3 g/dL (6.4-8.2); SODIUM 144 mmol/L (136-145); eGFR NON AFRICAN AMERICAN > 90 mL/min (90-120)
[2018-05-21 05:31] LABS: UREA NITROGEN 2 mg/dL (7-18)
[2018-05-21 08:00] VITALS: BP 124/77
[2018-05-21 12:54] VITALS: BP 146/80
[2018-05-21 15:18] VITALS: BP 122/70
--- NOTE | 2018-05-21 18:55 | NUR ---
PATIENT IN BED WITH IV INTACT. NO COMPLAINTS OR SIGNS OF DISTRESS. CALL LIGHT WITHIN REACH.
--- NOTE | 2018-05-21 19:00 | NUR ---
PT SLEEPING WHEN ENTERING THE ROOM. AROUSES WHEN NAME CALLED. PT STATES SHE IS NOT FEELING WELL AT THIS TIME AND ASKS TO GO BACK TO SLEEP,
[2018-05-21 20:41] VITALS: BP 153/84
[2018-05-22 01:03] VITALS: BP 116/46
--- NOTE | 2018-05-22 03:27 | NUR ---
RN note patient asleep in bed on back resting comfortably with no s/s of distress. call light in reach.
[2018-05-22 04:39] VITALS: BP 145/84
[2018-05-22 05:16] LABS: BASOPHILS 0.4 % (0-2); EOSINOPHILS 0.3 % (0-7); HEMOGLOBIN 10.5 g/dL (12-16); IMMATURE GRANULOCYTES 0.4 % (0-5); LYMPHOCYTES 18.7 % (15-50); MCH 30.9 pg (26.0-34.0); MCHC 33.9 g/dL (31.0-37.0); MCV 91.2 fL (80.0-100.0); MEAN PLATELET VOLUME 10.1 fL (7.4-10.4); MONOCYTES 5.2 % (2-11); PLATELET COUNT 402 10x3/uL (130-400); RDW 16.1 % (11.5-14.5)
[2018-05-22 05:26] LABS: ALBUMIN 1.9 g/dL (3.4-5.0); ALKALINE PHOSPHATASE 95 U/L (46-116); BILIRUBIN - TOTAL 0.23 mg/dL (0.2-1.3); CALCIUM 8.3 mg/dL (8.5-10.1); CHLORIDE - SERUM 106 mmol/L (98-107); CREATININE - SERUM 0.4 mg/dL (0.6-1.3); GLUCOSE 113 mg/dL (74-106); POTASSIUM - SERUM 3.8 mmol/L (3.5-5.1); PROTEIN - SERUM 5.6 g/dL (6.4-8.2); SODIUM 141 mmol/L (136-145); eGFR NON AFRICAN AMERICAN > 90 mL/min (90-120)
[2018-05-22 05:28] LABS: ALT (SGPT) 3 U/L (10-68); CALC OSMOLALITY 278 mosm/kg (275-300); UREA NITROGEN 4 mg/dL (7-18)
--- NOTE | 2018-05-22 07:30 | NUR ---
REPORT RECIEVED ASSUMED CARE. PATIENT IN BED WITH EYES CLOSED RESTING QUIETLY. CALL LIGHT WITHIN REACH.
[2018-05-22 08:22] VITALS: BP 155/99
[2018-05-22 12:20] VITALS: BP 113/57
[2018-05-22 15:52] VITALS: BP 133/74
--- NOTE | 2018-05-22 18:38 | NUR ---
PATIENT IN BED WITH IV INTACT. NO COMPLAINTS OR SIGNS OF DISTRESS. FAMILY AT BEDSIDE. CALL LIGHT WITHIN REACH.
[2018-05-22 20:00] VITALS: BP 126/74
[2018-05-23] VITALS: BP 126/81
--- NOTE | 2018-05-23 01:05 | NUR ---
RESTING QUIETLY, NO S/S OF DISTRESS NOTED, SCD'S ON, CALL LIGHT IN REACH, LCVL INFUSING PROCAL @50, REFUSED SCD'S
[2018-05-23 04:00] VITALS: BP 142/74
[2018-05-23 07:29] LABS: ERYTHROCYTE SEDIMENTATION RATE 20 mm/hr (0-20)
--- NOTE | 2018-05-23 07:35 | NUR ---
PT RESTING IN BED EYES OPEN. C/O PAIN 01/09, PT HAS RULING MACHINE FEEDER DILAUDID 0.2-10-4, ENCOURAGED PT TO PUSH RULING MACHINE FEEDER BUTTON WHEN IN PAIN. NO S/S OF ACUTE DISTRESS NOTED. CENTRAL LINE TO RIGHT SUBCLAVIAN, PATENT AND WITHOUT REDNESS OR SWELLING. PT ALERT AND ORIENTED. UP AD ROBERT. REFUSED SCDS. ON ELECTROLYTE PROTOCOL. PT C/O NAUSEA, UNABLE TO ADMINISTER ZOFRAN AT THIS TIME D/T TIME. WILL ADMINISTER WHEN AVAILABLE. PT DENIES ANYTHING FURTHER AT THIS TIME. CALL LIGHT IN REACH. WILL CONTINUE TO MONITOR.
[2018-05-23 08:30] VITALS: BP 132/78
--- NOTE | 2018-05-23 08:31 | NUR ---
PT RESTING IN BED, EYES OPEN. C/O PAIN 8/10, PT HAS STREET LIGHT MECHANIC DILAUDID 0.2-10-4. ENCOURAGE PT TO PUSH STREET LIGHT MECHANIC BUTTON WHEN NEEDED FOR PAIN. PT C/O NAUSEA, UNABLE TO GIVE NAUSEA MEDS AT THIS TIME. WILL GIVE WHEN AVAILABLE. PT IS ALERT & ORIENTED. UP AD ROBERT. HAS A RIGHT CENTRAL SUBCLAVIAN, SITE PATENT AND WITHOUT REDNESS OR SWELLING. ON ELECTROLYTE PROTOCOL. PT DENIES ANYTHING FURTHER AT THIS TIME. CALL LIGHT IN REACH. WILL CONTINUE TO MONITOR.
[2018-05-23 09:03] LABS: BASOPHILS 0.4 % (0-2); HEMATOCRIT 28.7 % (36.0-48.0); HEMOGLOBIN 9.6 g/dL (12-16); IMMATURE GRANULOCYTES 0.4 % (0-5); LYMPHOCYTES 40.3 % (15-50); MCH 31.1 pg (26.0-34.0); MCHC 33.4 g/dL (31.0-37.0); MCV 92.9 fL (80.0-100.0); MEAN PLATELET VOLUME 10.1 fL (7.4-10.4); MONOCYTES 8.5 % (2-11); NEUTROPHILS 48.4 % (40-80); PLATELET COUNT 405 10x3/uL (130-400); RBC 3.09 10x6/uL (4.00-5.40); RDW 16.7 % (11.5-14.5); WBC 7.4 10x3/uL (4.8-10.8)
[2018-05-23 09:04] LABS: CALC OSMOLALITY 276 mosm/kg (275-300); CALCIUM 8.1 mg/dL (8.5-10.1); CARBON DIOXIDE 30.1 mmol/L (21.0-32.0); CHLORIDE - SERUM 106 mmol/L (98-107); CREATININE - SERUM 0.5 mg/dL (0.6-1.3); GLUCOSE 80 mg/dL (74-106); POTASSIUM - SERUM 3.8 mmol/L (3.5-5.1); SODIUM 141 mmol/L (136-145); UREA NITROGEN 4 mg/dL (7-18); eGFR NON AFRICAN AMERICAN > 90 mL/min (90-120)
[2018-05-23 14:15] VITALS: BP 124/78
[2018-05-23 16:00] VITALS: BP 134/80
--- NOTE | 2018-05-23 17:42 | NUR ---
PT SITTING UP IN BED, EYES OPEN. PT C/O NAUSEA, GAVE ZOFRAN. NO S/S OF DISTRESS NOTED. BOYFRIEND AT BEDSIDE. DENIES ANYTHING FURTHER AT THIS TIME. CALL LIGHT IN REACH. WILL CONTINUE TO MONITOR.
[2018-05-23 19:47] VITALS: BP 129/84
--- NOTE | 2018-05-23 19:55 | NUR ---
PT RESTING IN BED. ALERT AND ORIENTED. PT STATES NO PROBLEMS AT THIS TIME. NO SIGNS OF DISTRESS. BREATHING EVEN AND UNLABORED. SKIN CLEAN DRY AND INTACT. IV SITE CENTRAL LINE LT CHEST. DRESSING CLEAN DRY AND INTACT. BOWEL SOUNDS ACTIVE. NO LOWER LEG SWELLING PRESENT. WILL CONTINUE PLAN OF CARE. CALL LIGHT IN REACH.
[2018-05-24] VITALS: BP 127/78
--- NOTE | 2018-05-24 01:17 | NUR ---
RN NOTE: PT RESTING IN SUPINE POSITION WITH EYES CLOSED AND EASY RESPIRAITONS. RIGHT CENTRAL LINE PATENT WITH PROCAL INFUSING AT 50 ML / HR. DILAUDID MOTOR ROOM CONTROLLER IN USE FOR PAIN CONTROL. WILL CONTINUE TO MONITOR FOR NEEDS. CALL LIGHT WITHIN REACH.
[2018-05-24 04:02] VITALS: BP 140/88
[2018-05-24 07:32] LABS: BASOPHILS 0.3 % (0-2); HEMATOCRIT 32.3 % (36.0-48.0); HEMOGLOBIN 10.5 g/dL (12-16); IMMATURE GRANULOCYTES 0.6 % (0-5); MCH 30.4 pg (26.0-34.0); MCHC 32.5 g/dL (31.0-37.0); MCV 93.6 fL (80.0-100.0); MEAN PLATELET VOLUME 10.1 fL (7.4-10.4); NEUTROPHILS 53.1 % (40-80); PLATELET COUNT 436 10x3/uL (130-400); RBC 3.45 10x6/uL (4.00-5.40); RDW 16.9 % (11.5-14.5)
[2018-05-24 07:36] LABS: WBC 10.7 10x3/uL (4.8-10.8)
[2018-05-24 07:44] LABS: CALC OSMOLALITY 274 mosm/kg (275-300); CARBON DIOXIDE 29.1 mmol/L (21.0-32.0); CHLORIDE - SERUM 106 mmol/L (98-107); CREATININE - SERUM 0.6 mg/dL (0.6-1.3); GLUCOSE 89 mg/dL (74-106); POTASSIUM - SERUM 3.6 mmol/L (3.5-5.1); SODIUM 140 mmol/L (136-145); UREA NITROGEN 5 mg/dL (7-18); eGFR NON AFRICAN AMERICAN > 90 mL/min (90-120)
--- NOTE | 2018-05-24 08:17 | NUR ---
PT ALERT X 4. BREATH SOUNDS CLEAR BILAT. CENTRAL LINE TO LEFT CHEST, PATENT, DRESSING CLEAN DRY AND INTACT. REPORTING PAIN AND TENDERNESS TO LOWER ABDOMEN, PAIN 10/10, WELL SITE DRILLING ENGINEER IN PLACE, WILL MONITOR. TRACE EDEMA TO LUE AND BLE. BED LOW, CALL LIGHT IN REACH, NO OTHER NEEDS AT THIS TIME.
[2018-05-24 09:03] VITALS: BP 126/77
[2018-05-24 12:30] VITALS: BP 120/74
[2018-05-24 17:15] VITALS: BP 123/69
[2018-05-24 20:00] VITALS: BP 124/53
--- NOTE | 2018-05-24 20:00 | NUR ---
ALERT RESTING IN BED REPORTS CONTINUING ABD PAIN SENIOR NET APPLICATION DEVELOPER IN USE STATES HAD 1 BM THIS EVENING AND IT WAS SOFT BUT NOT DIARRHEA. ALSO REPORTS NAUSEA T TIMES CALL LIGHT IN REACH NO APPARENT DISTRESS
[2018-05-25 04:00] VITALS: BP 124/70
[2018-05-25 06:21] LABS: BASOPHILS 0.2 % (0-2); EOSINOPHILS 1.4 % (0-7); IMMATURE GRANULOCYTES 0.9 % (0-5); LYMPHOCYTES 20.8 % (15-50); MCH 30.9 pg (26.0-34.0); MCHC 33.3 g/dL (31.0-37.0); MCV 92.7 fL (80.0-100.0); MEAN PLATELET VOLUME 10.2 fL (7.4-10.4); MONOCYTES 9.3 % (2-11); NEUTROPHILS 67.4 % (40-80); PLATELET COUNT 432 10x3/uL (130-400); RBC 3.56 10x6/uL (4.00-5.40); RDW 16.5 % (11.5-14.5); WBC 13.2 10x3/uL (4.8-10.8)
[2018-05-25 06:24] LABS: CALC OSMOLALITY 271 mosm/kg (275-300); CHLORIDE - SERUM 101 mmol/L (98-107); CREATININE - SERUM 0.4 mg/dL (0.6-1.3); GLUCOSE 104 mg/dL (74-106); SODIUM 137 mmol/L (136-145); UREA NITROGEN 8 mg/dL (7-18); eGFR NON AFRICAN AMERICAN > 90 mL/min (90-120)
--- NOTE | 2018-05-25 07:50 | NUR ---
PATIENT RESTING IN BED WITH NO NEEDS VOICED. PROCAL IN FUSING @50ML/HR TO LEFT CENTRAL LINE, DRESSING C/D/I. PAIN TOLERABLE WITH DILAUDID PASTE MIXER LIQUID. CL IN REACH
[2018-05-25 08:25] VITALS: BP 115/51
[2018-05-25 11:30] VITALS: BP 98/60
[2018-05-25 14:18] LABS: INR 1.08 (0.85-1.17); PROTIME 13.5 SECONDS (11.6-15.0)
--- NOTE | 2018-05-25 14:20 | NUR ---
PATIENT RESTING WITH NO NEEDS VOICED
[2018-05-25 14:41] LABS: D-DIMER-QUANTITATIVE 11.55 ug/mLFEU (0.20-0.54)
--- NOTE | 2018-05-25 14:57 | NUR ---
URINE SAMPLE TAKEN TO LAB FOR PROCESSING
[2018-05-25 15:16] LABS: APPEARANCE CLEAR (CLEAR); BILIRUBIN NEGATIVE (NEGATIVE); COLOR YELLOW (YELLOW); GLUCOSE NEGATIVE (NEGATIVE); KETONE NEGATIVE (NEGATIVE); NITRITE NEGATIVE (NEGATIVE); PROTEIN NEGATIVE (NEGATIVE); SPECIFIC GRAVITY 1.005 (1.005-1.020); UROBILINOGEN NORMAL (NORMAL)
[2018-05-25 16:00] VITALS: BP 104/62
--- NOTE | 2018-05-25 19:57 | NUR ---
PATIENT ALERT AND ORENTED ABLE TO VOICE NEEDS AND WANTS TO STAFF. PORT TO LEFT CHEST WITH PROCAL AT 50. CALL LIGHTY IN REACH NO NEEDS AT THIS TIME. FAMILY AT BEDSIDE. CALL LIGHT IN REACH.
[2018-05-25 21:06] VITALS: BP 87/54
[2018-05-26] VITALS (7 sets, daily range): BP systolic 89–113; BP diastolic 49–64
[2018-05-26 02:12] LABS: BASOPHILS 0.3 % (0-2); EOSINOPHILS 1.7 % (0-7); HEMATOCRIT 30.6 % (36.0-48.0); IMMATURE GRANULOCYTES 0.4 % (0-5); LYMPHOCYTES 22.7 % (15-50); MCH 30.6 pg (26.0-34.0); MCHC 32.7 g/dL (31.0-37.0); MCV 93.6 fL (80.0-100.0); MEAN PLATELET VOLUME 9.9 fL (7.4-10.4); MONOCYTES 7.4 % (2-11); NEUTROPHILS 67.5 % (40-80); PLATELET COUNT 362 10x3/uL (130-400); RBC 3.27 10x6/uL (4.00-5.40); RDW 16.8 % (11.5-14.5)
[2018-05-26 02:19] LABS: CALC OSMOLALITY 275 mosm/kg (275-300); CALCIUM 8.2 mg/dL (8.5-10.1); CARBON DIOXIDE 31.9 mmol/L (21.0-32.0); CHLORIDE - SERUM 102 mmol/L (98-107); CREATININE - SERUM 0.5 mg/dL (0.6-1.3); GLUCOSE 105 mg/dL (74-106); POTASSIUM - SERUM 4.2 mmol/L (3.5-5.1); SODIUM 139 mmol/L (136-145); UREA NITROGEN 7 mg/dL (7-18); eGFR NON AFRICAN AMERICAN > 90 mL/min (90-120)
[2018-05-26 07:10] LABS: IMMUNOGLOBULIN A 253 mg/dL (87-352)
--- NOTE | 2018-05-26 07:30 | NUR ---
REC'D IN BED AWAKE AND ALERT. RESP EVEN AND UNALBORED WITH NO DISTRESS NOTED. CAN EXPRESS NEEDS AND WANTS. NO C/O NOTED OR VOICED. ASSESSMENT COMPLETED. C/L IN REACH AT BEDSIDE.
--- NOTE | 2018-05-26 19:00 | NUR ---
PT IN BED RESTING QUIETLY IN SUPINE POSTION. ALERT AND ORIENTED X4. RESPIRATIONS EVEN AND UNLABORED. VS STABLE AND AFEBRILE. NO VISUAL CUES OF DISTRESS NOTED. DENIES ANY OTHER NEEDS AT THIS TIME. BED LOW, SIDE RAILS UP X2. CALL LIGHT IN REACH. WILL CONTINUE TO MONITOR.
[2018-05-27] VITALS (9 sets, daily range): BP systolic 85–129; BP diastolic 41–77
[2018-05-27 05:06] LABS: BASOPHILS 0.5 % (0-2); EOSINOPHILS 3.6 % (0-7); HEMATOCRIT 26.8 % (36.0-48.0); HEMOGLOBIN 8.6 g/dL (12-16); IMMATURE GRANULOCYTES 0.7 % (0-5); MCH 30.7 pg (26.0-34.0); MCHC 32.1 g/dL (31.0-37.0); MEAN PLATELET VOLUME 10.2 fL (7.4-10.4); MONOCYTES 13.9 % (2-11); NEUTROPHILS 45.3 % (40-80); PLATELET COUNT 338 10x3/uL (130-400); RDW 17.2 % (11.5-14.5)
[2018-05-27 05:09] LABS: MCV 95.7 fL (80.0-100.0); WBC 5.8 10x3/uL (4.8-10.8)
[2018-05-27 05:20] LABS: CALC OSMOLALITY 278 mosm/kg (275-300); CARBON DIOXIDE 28.2 mmol/L (21.0-32.0); CHLORIDE - SERUM 107 mmol/L (98-107); CREATININE - SERUM 0.5 mg/dL (0.6-1.3); GLUCOSE 79 mg/dL (74-106); POTASSIUM - SERUM 3.8 mmol/L (3.5-5.1); SODIUM 142 mmol/L (136-145); eGFR NON AFRICAN AMERICAN > 90 mL/min (90-120)
[2018-05-27 05:24] LABS: UREA NITROGEN 5 mg/dL (7-18)
--- NOTE | 2018-05-27 12:36 | NUR ---
NUTRITION F/U CHART REVIEWED. PT NOW ON GLUTEN FREE DIET. 25% INTAKE BREAKFAST. CONTINUES PROCALAMINE @ 50 CC/HR. WILL CONTINUE TO MONITOR PT PROGRESS. RD FOLLOWING
--- NOTE | 2018-05-27 17:15 | NUR ---
PATIENT BLOOD STARTED AT THIS TIME. CVL INTACT. VS STABLE. NO COMPLAINTS. CALL LIGHT WITHIN REACH. WILL CONTINUE TO MONITOR.
--- NOTE | 2018-05-27 17:30 | NUR ---
PATIENT VS STABLE. BLOOD INFUSING. NO PROBLEMS NOTED. IV INTACT. CALL LIGHT WITHIN REACH.
--- NOTE | 2018-05-27 19:00 | NUR ---
PATIENT IN BED WITH IV INTACT. NO COMPLAINTS OR SIGNS OF DISTRESS. BLOOD INFUSING. VS STABLE. CALL LIGHT WITHIN REACH.
[2018-05-28 00:44] VITALS: BP 101/54
[2018-05-28 04:36] LABS: BASOPHILS 0.5 % (0-2); EOSINOPHILS 3.5 % (0-7); HEMATOCRIT 30.4 % (36.0-48.0); HEMOGLOBIN 9.9 g/dL (12-16); IMMATURE GRANULOCYTES 0.3 % (0-5); LYMPHOCYTES 34.8 % (15-50); MCH 30.7 pg (26.0-34.0); MCHC 32.6 g/dL (31.0-37.0); MCV 94.1 fL (80.0-100.0); MEAN PLATELET VOLUME 10.3 fL (7.4-10.4); MONOCYTES 11.6 % (2-11); NEUTROPHILS 49.3 % (40-80); PLATELET COUNT 333 10x3/uL (130-400); RBC 3.23 10x6/uL (4.00-5.40); RDW 17.2 % (11.5-14.5)
[2018-05-28 04:56] LABS: ALKALINE PHOSPHATASE 68 U/L (46-116); BILIRUBIN - TOTAL 0.39 mg/dL (0.2-1.3); CALC OSMOLALITY 278 mosm/kg (275-300); CALCIUM 7.9 mg/dL (8.5-10.1); CARBON DIOXIDE 27.8 mmol/L (21.0-32.0); CHLORIDE - SERUM 106 mmol/L (98-107); CREATININE - SERUM 0.5 mg/dL (0.6-1.3); GLUCOSE 86 mg/dL (74-106); POTASSIUM - SERUM 3.7 mmol/L (3.5-5.1); PROTEIN - SERUM 5.5 g/dL (6.4-8.2); SODIUM 142 mmol/L (136-145); UREA NITROGEN 5 mg/dL (7-18); eGFR NON AFRICAN AMERICAN > 90 mL/min (90-120)
[2018-05-28 04:57] LABS: ALT (SGPT) 6 U/L (10-68)
[2018-05-28 05:10] VITALS: BP 124/67
--- NOTE | 2018-05-28 05:41 | NUR ---
PT IN BED IN RESTING QUIETLY. ALERT AND ORIENTED X4. RESPIRATIONS EVEN AND UNLABORED. NO VISUAL CUES OF DISTRESS NOTED. DENIES ANY OTHER NEEDS AT THIS TIME. BED LOW. SIDE RAILS X2. CALL LIGHT IN REACH. WILL MONITOR.
[2018-05-28 08:48] VITALS: BP 114/75
--- NOTE | 2018-05-28 09:18 | NUR ---
PATIENT IN BED WITH EYES CLOSED RESTING QUIETLY. IV INTACT. CALL LIGHT WITHIN REACH.
--- NOTE | 2018-05-28 10:33 | NUR ---
PT SITTING UP IN BED. FAMILY AT BEDSIDE, PT REQUESTED HEATING PAD, ADMINISTERED HEATING PAD TO LOWER ABDOMEN. NO OTHER NEEDS VOICED, CONTINUE WITH PLAN OF CARE
[2018-05-28 11:13] LABS: ANTIGLIADIN IGA 4 units (0-19); ANTIGLIADIN IGG 6 units (0-19)
[2018-05-28 12:45] VITALS: BP 112/69
[2018-05-28 13:12] LABS: T-TRANSGLUTAMINASE IGA <2 U/mL (0-3); T-TRANSGLUTAMINASE IGG <2 U/mL (0-5)
[2018-05-28 16:50] VITALS: BP 101/50
--- NOTE | 2018-05-28 19:45 | NUR ---
PT REPORTS PAIN OF 9/10 IN ABDOMEN. GAIT APPEARS WEAK. ABDOMEN FLAT. BOWEL SOUNDS ACTIVE X 4. REQUESTS BOLUS DOSE OF DILAUDID.
[2018-05-28 21:11] VITALS: BP 101/61
--- NOTE | 2018-05-28 22:48 | NUR ---
EYES CLOSED RESPIRATIONS WITH EASE AND UNLABORED. SR UP X2 CALL LIGHT WITHIN REACH.
[2018-05-29 04:34] VITALS: BP 120/59
--- NOTE | 2018-05-29 08:00 | NUR ---
ASSESSMENT PER FLOW SHEET. PT IS WITHOUT DISTRESS AND AWAKENS INT. SHE IS VERY DROWSY THIS AM. SHE STATES SHE HAD TO HAVE BOLUS FOR PAIN EARLIER.MONITOR FOR NEEDS.CALL LIGHT IN REACH.
[2018-05-29 08:03] LABS: BASOPHILS 0.6 % (0-2); EOSINOPHILS 2.4 % (0-7); HEMATOCRIT 32.2 % (36.0-48.0); HEMOGLOBIN 10.7 g/dL (12-16); IMMATURE GRANULOCYTES 0.5 % (0-5); MCH 31.5 pg (26.0-34.0); MCHC 33.2 g/dL (31.0-37.0); MCV 94.7 fL (80.0-100.0); MEAN PLATELET VOLUME 10.7 fL (7.4-10.4); MONOCYTES 11.9 % (2-11); NEUTROPHILS 60.6 % (40-80); PLATELET COUNT 349 10x3/uL (130-400); RDW 17.4 % (11.5-14.5)
[2018-05-29 08:16] LABS: ALBUMIN 2.2 g/dL (3.4-5.0); ALKALINE PHOSPHATASE 68 U/L (46-116); BILIRUBIN - TOTAL 0.27 mg/dL (0.2-1.3); CALC OSMOLALITY 281 mosm/kg (275-300); CALCIUM 8.2 mg/dL (8.5-10.1); CARBON DIOXIDE 26.3 mmol/L (21.0-32.0); CHLORIDE - SERUM 107 mmol/L (98-107); CREATININE - SERUM 0.5 mg/dL (0.6-1.3); GLUCOSE 78 mg/dL (74-106); POTASSIUM - SERUM 3.6 mmol/L (3.5-5.1); SODIUM 143 mmol/L (136-145); UREA NITROGEN 6 mg/dL (7-18); eGFR NON AFRICAN AMERICAN > 90 mL/min (90-120)
[2018-05-29 08:22] LABS: ALT (SGPT) 8 U/L (10-68)
[2018-05-29 08:51] VITALS: BP 140/78; BP 98/45
--- NOTE | 2018-05-29 13:46 | NUR ---
AT BEDSIDE. PT IS AWAKE AND GOING TO EAT A SMALL AMOUNT OF LUNCH.PT IS WITHOUT NEEDS.
[2018-05-29 15:59] VITALS: BP 99/56
--- NOTE | 2018-05-29 18:15 | NUR ---
PATIENT DOES NOT WANT HER FOOD TRAY. LARGE CHICKEN BROTH PROVIDED PER PT REQUEST. SHE IS WITHOUT CHANGE.CONT PLAN OF CARE
--- NOTE | 2018-05-29 19:14 | NUR ---
RECEIVED REPORT, ASSUMED CARE, DENIES NEEDS, AT BEDSIDE, BREATHING EVEN UNLABORED, CALL LIGHT IN REACH, BED LOWEST POSITION, WILL CONTINUE POC
[2018-05-29 20:00] VITALS: BP 101/52
[2018-05-30] VITALS: BP 130/68
[2018-05-30 04:00] VITALS: BP 140/74
--- NOTE | 2018-05-30 05:54 | NUR ---
A/OX4. PT HAS MATERIAL FLOW ANALYST FOR ABD PAIN. DENIES NEEDS AT THIS TIME. WILL CONTINUE POC.
[2018-05-30 05:58] LABS: BASOPHILS 0.5 % (0-2); EOSINOPHILS 1.6 % (0-7); HEMATOCRIT 31.7 % (36.0-48.0); HEMOGLOBIN 10.3 g/dL (12-16); IMMATURE GRANULOCYTES 0.3 % (0-5); LYMPHOCYTES 22.4 % (15-50); MCHC 32.5 g/dL (31.0-37.0); MCV 95.5 fL (80.0-100.0); MEAN PLATELET VOLUME 10.4 fL (7.4-10.4); MONOCYTES 12.8 % (2-11); NEUTROPHILS 62.4 % (40-80); PLATELET COUNT 359 10x3/uL (130-400); RBC 3.32 10x6/uL (4.00-5.40); RDW 16.7 % (11.5-14.5); WBC 8.6 10x3/uL (4.8-10.8)
[2018-05-30 06:38] LABS: ALBUMIN 1.9 g/dL (3.4-5.0); ALKALINE PHOSPHATASE 59 U/L (46-116); ALT (SGPT) 6 U/L (10-68); CALC OSMOLALITY 272 mosm/kg (275-300); CALCIUM 8.1 mg/dL (8.5-10.1); CARBON DIOXIDE 25.9 mmol/L (21.0-32.0); CHLORIDE - SERUM 103 mmol/L (98-107); CREATININE - SERUM 0.5 mg/dL (0.6-1.3); GLUCOSE 88 mg/dL (74-106); POTASSIUM - SERUM 3.5 mmol/L (3.5-5.1); PROTEIN - SERUM 5.6 g/dL (6.4-8.2); SODIUM 138 mmol/L (136-145); UREA NITROGEN 6 mg/dL (7-18); eGFR NON AFRICAN AMERICAN > 90 mL/min (90-120)
--- NOTE | 2018-05-30 08:45 | NUR ---
PATIENT IN BED WITH IV INTACT. NO COMPLAINTS WITH EYES CLOSED RESTING QUIETLY. CALL LIGHT WITHIN REACH.
[2018-05-30 09:41] VITALS: BP 124/70
[2018-05-30 12:16] VITALS: BP 118/67
--- NOTE | 2018-05-30 15:00 | NUR ---
PATIENT IN BED WITH IV INTACT. NO COMPLAINTS OR SIGNS OF DISTRESS. EYES CLOSED RESTING QUIETLY. CALL LIGHT WITHIN REACH.
[2018-05-30 17:32] VITALS: BP 123/67
--- NOTE | 2018-05-30 18:32 | NUR ---
PATIENT IN BED WITH IV INTACT. EYES CLOSED RESTING QUIETLY. CALL LIGHT WITHIN REACH.
[2018-05-30 20:00] VITALS: BP 126/60
[2018-05-31] VITALS: BP 144/72
--- NOTE | 2018-05-31 01:42 | NUR ---
RN NOTE: PT RESTING IN SUPINE POSITION. CURTAIN CLEANER AT BEDSIDE CHANGING OUT ALL IV TUBING. LEFT CVL PATENT. DILAUDID PROMOTIONS SPECIALIST IN USE FOR PAIN CONTROL. WILL CONTINUE TO MONITOR FOR NEEDS.
[2018-05-31 04:00] VITALS: BP 99/57
[2018-05-31 06:42] LABS: BASOPHILS 0.2 % (0-2); EOSINOPHILS 1.7 % (0-7); HEMATOCRIT 30.9 % (36.0-48.0); HEMOGLOBIN 10.2 g/dL (12-16); IMMATURE GRANULOCYTES 0.2 % (0-5); MCH 31.4 pg (26.0-34.0); MCV 95.1 fL (80.0-100.0); MEAN PLATELET VOLUME 10.4 fL (7.4-10.4); MONOCYTES 10.7 % (2-11); NEUTROPHILS 69.2 % (40-80); PLATELET COUNT 375 10x3/uL (130-400); RBC 3.25 10x6/uL (4.00-5.40); RDW 15.9 % (11.5-14.5)
[2018-05-31 06:43] LABS: WBC 12.3 10x3/uL (4.8-10.8)
--- NOTE | 2018-05-31 07:00 | NUR ---
REPORT RECIEVED ASSUMED CARE. PATIENT IN BED WITH IV INTACT. NO COMPLAINTS CALL LIGHT WITHIN REACH.
[2018-05-31 07:09] LABS: ALKALINE PHOSPHATASE 59 U/L (46-116); ALT (SGPT) 7 U/L (10-68); BILIRUBIN - TOTAL 0.29 mg/dL (0.2-1.3); CALC OSMOLALITY 276 mosm/kg (275-300); CALCIUM 8.4 mg/dL (8.5-10.1); CARBON DIOXIDE 27.6 mmol/L (21.0-32.0); CHLORIDE - SERUM 105 mmol/L (98-107); CREATININE - SERUM 0.5 mg/dL (0.6-1.3); GLUCOSE 86 mg/dL (74-106); POTASSIUM - SERUM 3.6 mmol/L (3.5-5.1); PROTEIN - SERUM 6.1 g/dL (6.4-8.2); SODIUM 141 mmol/L (136-145); eGFR NON AFRICAN AMERICAN > 90 mL/min (90-120)
[2018-05-31 07:14] LABS: UREA NITROGEN 4 mg/dL (7-18)
[2018-05-31 09:24] VITALS: BP 135/62
--- NOTE | 2018-05-31 12:45 | NUR ---
PATIENT UP AMBULATING WITH .
[2018-05-31 13:06] VITALS: BP 128/70
--- NOTE | 2018-05-31 14:20 | NUR ---
REMINDED PATIENT NEED STOOL SAMPLE. PATIENT STATED SHE ALREADY HAD A BM TODAY. PLACED NEW HAT IN TOILET AND TOLD HER TO LET US KNOW NEXT TIME SHE HAS BM. VERBALIZED UNDERSTANDING.
[2018-05-31 17:18] VITALS: BP 136/78
--- NOTE | 2018-05-31 18:45 | NUR ---
PATIENT IN BED WITH IV INTACT. NO COMPLAINTS OR SIGNS OF DISTRESS. CALL LIGHT WITHIN REACH.
[2018-05-31 20:00] VITALS: BP 138/68
[2018-06-01] VITALS (7 sets, daily range): BP systolic 114–136; BP diastolic 64–77
--- NOTE | 2018-06-01 04:11 | NUR ---
N BED ON LEFT SIDE ASLEEP WITH TV ON NO S/S OF DISTRESS CALL LIGHT IN REACH.
[2018-06-01 06:39] LABS: HEMATOCRIT 27.6 % (36.0-48.0); HEMOGLOBIN 8.7 g/dL (12-16); MCH 29.9 pg (26.0-34.0); MCHC 31.5 g/dL (31.0-37.0); MCV 94.8 fL (80.0-100.0); RBC 2.91 10x6/uL (4.00-5.40); RDW 16.3 % (11.5-14.5)
[2018-06-01 06:42] LABS: PLATELET COUNT 279 10x3/uL (130-400); WBC 5.2 10x3/uL (4.8-10.8)
[2018-06-01 06:58] LABS: ALBUMIN 2.4 g/dL (3.4-5.0); ALKALINE PHOSPHATASE 61 U/L (46-116); ALT (SGPT) 7 U/L (10-68); BILIRUBIN - TOTAL 0.29 mg/dL (0.2-1.3); CALC OSMOLALITY 276 mosm/kg (275-300); CALCIUM 7.5 mg/dL (8.5-10.1); CARBON DIOXIDE 27.1 mmol/L (21.0-32.0); CHLORIDE - SERUM 106 mmol/L (98-107); GLUCOSE 85 mg/dL (74-106); PROTEIN - SERUM 5.4 g/dL (6.4-8.2); SODIUM 141 mmol/L (136-145); UREA NITROGEN 3 mg/dL (7-18)
[2018-06-01 07:01] LABS: CREATININE - SERUM 0.7 mg/dL (0.6-1.3); eGFR NON AFRICAN AMERICAN > 90 mL/min (90-120)
[2018-06-01 07:02] LABS: POTASSIUM - SERUM 2.8 mmol/L (3.5-5.1)
[2018-06-01 07:31] LABS: EOSINOPHILS 5 % (0-7); LYMPHOCYTES 39 % (15-50); MONOCYTES 6 % (2-11); NEUTROPHILS 43 % (40-80)
[2018-06-01 07:32] LABS: PLATELET ESTIMATE NORMAL
--- NOTE | 2018-06-01 07:45 | NUR ---
PATIENT IN BED WITH IV INTACT. NO COMPLAINTS OR SIGNS OF DISTRESS. SITTING UP ON THE SIDE OF THE BED. CALL LIGHT WITHIN REACH.
--- NOTE | 2018-06-01 20:00 | NUR ---
PT LYING IN BED, NO SIGNS OF DISTRESS. IV INTACT INFUSING NS @ 50, PROCAL @ 50, DILAUDID SEAMLESS TUBE ROLLER. PT STATES PAIN IN ABD, TENDER TO TOUCH. FEELING NAUSEAS, NO EMESIS. SCDS ON. NO OTHER COMPLAINTS OR NEEDS AT THIS TIME. CL IN REACH, WILL CONTINUE TO MONITOR
[2018-06-02] VITALS (7 sets, daily range): BP systolic 120–150; BP diastolic 63–88
[2018-06-02 06:16] LABS: BASOPHILS 0.4 % (0-2); EOSINOPHILS 2.4 % (0-7); HEMOGLOBIN 10.4 g/dL (12-16); IMMATURE GRANULOCYTES 0.2 % (0-5); LYMPHOCYTES 17.2 % (15-50); MCH 30.9 pg (26.0-34.0); MCHC 32.5 g/dL (31.0-37.0); MEAN PLATELET VOLUME 10.7 fL (7.4-10.4); MONOCYTES 10.8 % (2-11); RBC 3.37 10x6/uL (4.00-5.40); RDW 15.4 % (11.5-14.5)
[2018-06-02 06:25] LABS: PLATELET COUNT 394 10x3/uL (130-400); WBC 9.9 10x3/uL (4.8-10.8)
[2018-06-02 06:40] LABS: ALBUMIN 1.9 g/dL (3.4-5.0); ALKALINE PHOSPHATASE 58 U/L (46-116); ALT (SGPT) 6 U/L (10-68); BILIRUBIN - TOTAL 0.22 mg/dL (0.2-1.3); CALC OSMOLALITY 276 mosm/kg (275-300); CALCIUM 8.5 mg/dL (8.5-10.1); CARBON DIOXIDE 27.4 mmol/L (21.0-32.0); CHLORIDE - SERUM 104 mmol/L (98-107); CREATININE - SERUM 0.5 mg/dL (0.6-1.3); GLUCOSE 89 mg/dL (74-106); POTASSIUM - SERUM 3.6 mmol/L (3.5-5.1); SODIUM 141 mmol/L (136-145); UREA NITROGEN 4 mg/dL (7-18); eGFR NON AFRICAN AMERICAN > 90 mL/min (90-120)
--- NOTE | 2018-06-02 08:15 | NUR ---
PT LAYING IN BED WITH EYES OPEN. RESPIRATIONS ARE EVEN AND UNLABORED. PT REPORTS PAIN 10/10 IN ABDOMEN. ABDOMEN IS TENDER. PT REPORTS A NORMAL BM ON 06/01/18. PT WITH DIRECTOR TRANSPORTATION DILAUDID. BED IS IN LOWEST POSITION. CALL LIGHT AND BEDSIDE TABLE ARE WITHIN REACH. PT DENIES FURTHER NEEDS. WILL CONT TO MONITOR.
[2018-06-02 12:14] LABS: MAGNESIUM - SERUM 1.7 mg/dL (1.8-2.4); PHOSPHOROUS 3.9 mg/dL (2.5-4.9)
--- NOTE | 2018-06-02 14:31 | NUR ---
PT EDUCATED ON IMPORTANCE OF SCDS. PT VERBALIZED UNDERSTANDING AND AGREED TO USE SCDS. SCDS PLACED ON PT AND TURNED ON. BED IS IN LOWEST POSITION. CALL LIGHT AND BEDSIDE TABLE ARE WITHIN REACH. PT DENIES FURTHER NEEDS. WILL CONT TO MONITOR.
--- NOTE | 2018-06-02 17:09 | NUR ---
CONSENTS SIGNED FOR DIAGNOSTIC LAPAROTOMY AND ANY OTHER NECESSARY PROCEDURE. PT DENIES FURTHER QUESTIONS. SIGNED CONSENTS PLACED IN PT CHART.
--- NOTE | 2018-06-02 20:00 | NUR ---
RESTING IN BED RESP UNLABORED, IV INFUSING WITHOUT DIFFICULTY, CONTINUES TO REPORT ABD PAIN PULP COOKER IN USE FOR PAIN
[2018-06-03 04:00] VITALS: BP 131/68
[2018-06-03 06:23] LABS: BASOPHILS 0.3 % (0-2); EOSINOPHILS 3.4 % (0-7); HEMATOCRIT 33.7 % (36.0-48.0); HEMOGLOBIN 11.2 g/dL (12-16); IMMATURE GRANULOCYTES 0.1 % (0-5); LYMPHOCYTES 28.9 % (15-50); MCH 31.4 pg (26.0-34.0); MCHC 33.2 g/dL (31.0-37.0); MCV 94.4 fL (80.0-100.0); MEAN PLATELET VOLUME 10.6 fL (7.4-10.4); MONOCYTES 11.4 % (2-11); NEUTROPHILS 55.9 % (40-80); PLATELET COUNT 466 10x3/uL (130-400); RBC 3.57 10x6/uL (4.00-5.40); RDW 15.2 % (11.5-14.5); WBC 7.7 10x3/uL (4.8-10.8)
[2018-06-03 06:48] LABS: ALKALINE PHOSPHATASE 57 U/L (46-116); ALT (SGPT) 6 U/L (10-68); BILIRUBIN - TOTAL 0.21 mg/dL (0.2-1.3); CALC OSMOLALITY 279 mosm/kg (275-300); CALCIUM 8.8 mg/dL (8.5-10.1); CARBON DIOXIDE 28.5 mmol/L (21.0-32.0); CHLORIDE - SERUM 104 mmol/L (98-107); CREATININE - SERUM 0.5 mg/dL (0.6-1.3); GLUCOSE 91 mg/dL (74-106); MAGNESIUM - SERUM 1.9 mg/dL (1.8-2.4); PHOSPHOROUS 4.3 mg/dL (2.5-4.9); POTASSIUM - SERUM 3.8 mmol/L (3.5-5.1); PROTEIN - SERUM 6.3 g/dL (6.4-8.2); SODIUM 142 mmol/L (136-145); UREA NITROGEN 4 mg/dL (7-18); eGFR NON AFRICAN AMERICAN > 90 mL/min (90-120)
--- NOTE | 2018-06-03 08:29 | NUR ---
PT ALERT X 4. BREATH SOUNDS CLEAR BILAT. CENTRAL LINE TO LEFT SUBCLAVIAN, PATENT, DRESSING CLEAN DRY AND INTACT. REPORTING PAIN OF 10/10, BOLUS GIVEN, RISK MODELER IN PLACE, WILL MONITOR. BED LOW, CALL LIGHT IN REACH, NO OTHER NEEDS AT THIS TIME.
[2018-06-03 08:39] VITALS: BP 134/69
--- NOTE | 2018-06-03 15:12 | NUR ---
NUTRITION F//U PT CURRENTLY NPO FOR PROCEDURE. WILL PROVIDE DIET WHEN ADVANCED. ASSIST WITH NUTRITION SUPPORT IF NEEDED. RD FOLLOWING
[2018-06-03 16:41] VITALS: BP 140/73
[2018-06-03 20:00] VITALS: BP 145/82
--- NOTE | 2018-06-03 20:15 | NUR ---
LYING QUIELTY.NO DISTRESS NOTED. NO COMPLAINTS OF PAIN. MASSEUR/MASSEUSE DILAUDID IN USE FOR PAIN CONTROL. IV INFUSING TO LEFT PORT WITHOUT REDNESS OR EDEMA. PROCAL INFUSING @ 50 CC/HR.CL IN REACH
[2018-06-04] VITALS (12 sets, daily range): BP systolic 131–190; BP diastolic 76–115
--- NOTE | 2018-06-04 03:17 | NUR ---
EYES CLOSED RESPIRATIONS WITH EASE AND UNLABORED. SR UP X2 CALL LIGHT WITHIN REACH.
[2018-06-04 05:41] LABS: BASOPHILS 0.3 % (0-2); EOSINOPHILS 5.2 % (0-7); HEMATOCRIT 32.1 % (36.0-48.0); HEMOGLOBIN 10.6 g/dL (12-16); LYMPHOCYTES 33.1 % (15-50); MCH 31.1 pg (26.0-34.0); MCV 94.1 fL (80.0-100.0); MEAN PLATELET VOLUME 10.5 fL (7.4-10.4); MONOCYTES 14.8 % (2-11); NEUTROPHILS 46.6 % (40-80); PLATELET COUNT 439 10x3/uL (130-400); RBC 3.41 10x6/uL (4.00-5.40); RDW 15.1 % (11.5-14.5); WBC 6.4 10x3/uL (4.8-10.8)
[2018-06-04 06:08] LABS: ALKALINE PHOSPHATASE 55 U/L (46-116); BILIRUBIN - TOTAL 0.14 mg/dL (0.2-1.3); CALC OSMOLALITY 273 mosm/kg (275-300); CALCIUM 8.8 mg/dL (8.5-10.1); CARBON DIOXIDE 27.8 mmol/L (21.0-32.0); CHLORIDE - SERUM 103 mmol/L (98-107); CREATININE - SERUM 0.4 mg/dL (0.6-1.3); GLUCOSE 89 mg/dL (74-106); POTASSIUM - SERUM 3.8 mmol/L (3.5-5.1); PROTEIN - SERUM 6.2 g/dL (6.4-8.2); SODIUM 139 mmol/L (136-145); UREA NITROGEN 4 mg/dL (7-18); eGFR NON AFRICAN AMERICAN > 90 mL/min (90-120)
[2018-06-04 06:12] LABS: ALT (SGPT) 6 U/L (10-68)
--- NOTE | 2018-06-04 08:33 | NUR ---
PATIENT IS IN SURGERY AT THIS TIME.
--- NOTE | 2018-06-04 13:15 | NUR ---
RECEIVED PATIENT FROM RECOVERY AT THIS TIME. COMPLAINS OF ABDOMINAL PAIN. RECEIVING 2ND UNIT OF BLOOD. VSS. NORMAL SINUS RHYTHM. ON 5L HIGH FLOW NC. DRESSING OVER ABDOMINAL INCISION PARTLY SATURATED WITH BLOOD. NASRA ABDOMINAL DEISY DRAINS DRAINING BLOOD. NGT CLAMPED. TAFOYA CATH DRAINING BLUE URINE. WILL CONTINUE TO MONITOR. CALL PEÑA IN REACH.
--- NOTE | 2018-06-04 14:28 | NUR ---
INITIATED COMMUTATOR INSPECTOR PUMP. ADMINISTERED .4MG LOADING DOSE WHILE LOOKING FOR COMMUTATOR INSPECTOR BUTTON.
--- NOTE | 2018-06-04 15:36 | NUR ---
PAGED DR. CABAN ABOUT HIGH BP--POSSIBLY PAIN INDUCED.
--- NOTE | 2018-06-04 15:46 | NUR ---
OBTAINED ORDERS FROM DR. CABAN TO ADMINISTER 5MG LOPRESSOR IV NOW FOR BP AND HR. ALSO ORDERED TO JUST PLACE NEW DRESSING ON TOP OF ORIGINAL ABDOMINAL INCISION DRESSING.
--- NOTE | 2018-06-04 16:09 | NUR ---
APPLIED ABD PADS OVER DRESSING TO ABDOMEN AND TAPED DOWN. ALSO HOOKED NGT TO LOW INTERMITTENT SUCTION PER ORDER. SUCTIONED GREEN BILE FLUID. 5MG LOPRESS ADMINISTERED IV. IN ROOM.
--- NOTE | 2018-06-04 18:00 | NUR ---
obtained another order for lopressor 5mg iv to treat bp and hr. also, unable to draw blood from central line. called lab to do blood draws.
[2018-06-04 18:38] LABS: HEMATOCRIT 47.3 % (36.0-48.0); HEMOGLOBIN 16.2 g/dL (12-16)
--- NOTE | 2018-06-04 19:20 | NUR ---
Received patient resting in bed with eyes open watching TV, assessment completed per flowsheet. Patient AO x4, calm and cooperative. NGT secured to LIWS, small dark secretions noted. S1/S2 noted Sinus Tach on telmetry, all pulses palpable with cap refill < 3 sec. Bowel sounds absent x4, midline incision dressing intact with small drainage noted. DEISY x2 bilateral abdomen, small bloody drainage noted. Denies pain or other needs at this time, see flowsheet for details. All VSS and will continue to monitor.
--- NOTE | 2018-06-04 21:20 | NUR ---
Patient laying in bed with eyes open, IV HS meds given with PO meds held as patient NPO. No visitors at this time, discussed current status/medications with all questions answered to satisfaction. Will continue to monitor.
--- NOTE | 2018-06-04 23:20 | NUR ---
Reassessment completed per flowsheet, no changes noted from previous assessment. Patient resting in bed with eyes closed, c/o incisional pain 4/10 with BOAT CANVAS INSTALLER in use. Adominal dressing CDI with DEISY x2, small bloody drainage noted. Bowel sounds absent x4, tender to palpation. No further needs at this time, see flowsheet for details. All VSS and will continue to monitor.
--- NOTE | 2018-06-04 23:30 | NUR ---
Patient pulled out NGT, replaces with STAT Xray ordered to verify placement. Explained need to patient with stated understanding. Will continue to monitor.
[2018-06-05] VITALS (21 sets, daily range): BP systolic 132–167; BP diastolic 72–108
--- NOTE | 2018-06-05 00:45 | NUR ---
Patient pulled out 2nd NGT, stated she "can't stand it". Explained need to replace NGT, patient states "maybe tomorrow". Discussed need for NGT decompression, patient refuses to allow NGT replacement at this time. Will continue to monitor.
--- NOTE | 2018-06-05 01:00 | NUR ---
Patient laying in bed moaning c/o abdominal pain 08/09, instructed on use of AS400 ANALYST with stated understanding. Repositioned for comfort, no further needs at this time. All VSS and will continue to monitor.
--- NOTE | 2018-06-05 02:10 | NUR ---
NGT placed L nare, placement to be verified by radiology. Patient pulled out NGT prior to radiology arrival, explained need for NGT again with stated understanding. Patient states she "doesn't want it in" and "it feels uncomfortable". Will notify MD in AM regarding NGT, will continue to monitor.
--- NOTE | 2018-06-05 03:20 | NUR ---
Reassessment completed per flowsheet, no changes from previous assessment. S1/S2 noted Sinus Tach on telemetry, all pulses palpable with cap refill < 3 sec. Oral care/suctioning provided, repositioned for comfort. No further needs at this time, see flowsheet for details. All VSS and will continue to monitor.
[2018-06-05 05:32] LABS: BASOPHILS 0.1 % (0-2); EOSINOPHILS 0 % (0-7); HEMATOCRIT 40.6 % (36.0-48.0); IMMATURE GRANULOCYTES 0.4 % (0-5); LYMPHOCYTES 8.7 % (15-50); MCH 30.8 pg (26.0-34.0); MCHC 34.5 g/dL (31.0-37.0); MEAN PLATELET VOLUME 10.8 fL (7.4-10.4); MONOCYTES 10.1 % (2-11); NEUTROPHILS 80.7 % (40-80); PLATELET COUNT 384 10x3/uL (130-400); RDW 16.7 % (11.5-14.5)
[2018-06-05 05:40] LABS: MCV 89.2 fL (80.0-100.0); RBC 4.55 10x6/uL (4.00-5.40)
[2018-06-05 05:50] LABS: ALBUMIN 1.9 g/dL (3.4-5.0); ALKALINE PHOSPHATASE 49 U/L (46-116); BILIRUBIN - TOTAL 0.24 mg/dL (0.2-1.3); CALCIUM 8.5 mg/dL (8.5-10.1); CARBON DIOXIDE 21.9 mmol/L (21.0-32.0); CHLORIDE - SERUM 106 mmol/L (98-107); MAGNESIUM - SERUM 1.5 mg/dL (1.8-2.4); PHOSPHOROUS 4.7 mg/dL (2.5-4.9); POTASSIUM - SERUM 3.9 mmol/L (3.5-5.1); SODIUM 142 mmol/L (136-145)
[2018-06-05 07:16] LABS: ALT (SGPT) 10 U/L (10-68); CALC OSMOLALITY 284 mosm/kg (275-300); CREATININE - SERUM 0.7 mg/dL (0.6-1.3); GLUCOSE 151 mg/dL (74-106); UREA NITROGEN 10 mg/dL (7-18); eGFR NON AFRICAN AMERICAN > 90 mL/min (90-120)
--- NOTE | 2018-06-05 07:20 | NUR ---
REPORT RECEIVED. ASSESSMENT COMPLETE PER FLOW SHEET. REFER FOR FINDINGS. DENIES NEEDS. WILL CONTNIUE TO MONITOR
[2018-06-05 07:22] LABS: TROPONIN-I 0.077 ng/mL (0.000-0.060)
--- NOTE | 2018-06-05 07:33 | NUR ---
LAB CALLED, TROPONIN READ BACK 0.077. DR CABAN ORDERED TROPONIN, PAGED. AWAITING CALL BACK.
--- NOTE | 2018-06-05 07:44 | NUR ---
DR CABAN CALLED BACK. GIVEN UPDATE. PT HR 143, BP 172/114 AND TROPONIN READ BACK 0.077. T ORDER TO CONSULT O/C CARDIOLOGY AND PRN HYDROLAZINE 10MG IV Q4H. WILL ADM.
--- NOTE | 2018-06-05 08:00 | NUR ---
DR NAIR PAGED WITH CARDIOLOGY AWAITING CALL BACK
--- NOTE | 2018-06-05 09:19 | NUR ---
PAULETTE GUAJARDO APN AT BEDSIDE NEW ORDERS RECEIVED.
--- NOTE | 2018-06-05 09:50 | NUR ---
LOPRESSOR 5MG IV ADM. HR DECREASED TO 130 PAULETTE PORTER NOTIFIED. WILL REASSESS
--- NOTE | 2018-06-05 10:53 | NUR ---
Nutrition follow-up: NPO s/p small bowel resection x 2, extensive adhesionlysis NPO NGT out; pt refusing to have it replaced ProcalAmine PPN @ 50 ml/hr Labs reviewed Wt: 94# Recommend increasing ProcalAmine to 60 ml/hr to increase kcal/protein intake. RDN following.
--- NOTE | 2018-06-05 11:25 | NUR ---
REASSESSMENT COMPLETE PER FLOW SHEET. VSS. NO NEW CHANGES WILL CONTINUE TO MONITOR
--- NOTE | 2018-06-05 12:28 | NUR ---
PT ASSISTED UP TO BEDSIDE. COMMODE. PT PASSING GAS AT THIS TIME. NO BM NOTED. WILL CONTINUE TO MONITOR
--- NOTE | 2018-06-05 13:10 | NUR ---
PT RESTING COMFORTABLY VSS NO NEW CHANGES WILL CONTNIUE TO MONITOR
--- NOTE | 2018-06-05 15:15 | NUR ---
REASSESSMENT COMPLETE PER FLOW SHEET. VSS. NO NEW CHANGES. PT RESTING COMFORTABLY WILL CONTNIUE TO MONITOR
--- NOTE | 2018-06-05 17:02 | OP ---
PATIENT NAME: SHANIKA MARTINEZ MEDICAL RECORD: [id number] :70 LOCATION:.[facility] [id number] ADMISSION DATE:05/12/18 SURGEON: JUAN F CABAN MD DATE OF OPERATION: 06/04/2018 PREOPERATIVE DIAGNOSIS: Persistent lower transverse abdominal pain. POSTOPERATIVE DIAGNOSES: 1. Persistent lower transverse abdominal pain with very indurated distal ileum, which corresponds to the area where the patient has been having pain. 2. Outpouching at the Fabiano-en-Y anastomosis. This was outpouching off the side and likely there is overgrowth of bacteria within this outpouching. This is not technically a closed loop. PROCEDURES: 1. Diagnostic laparoscopy with immediate conversion to exploratory laparotomy. 2. Extensive adhesiolysis. The sharp adhesiolysis took 110 minutes. 3. Small bowel and colonic resection with enterocolonic anastomosis. 4. Repair of full-thickness enterotomies times 2. SURGEON: Juan F Caban MD HAND FUNNEL COATER: None. BLOOD LOSS: 400 cc. The risks, possible complications, and alternatives to the procedure were explained to the patient. She elects to proceed. The risks that were discussed with the patient included, but were not limited to, bleeding requiring emergency reoperation; infection; stoma formation. OPERATIVE COURSE: The patient was conveyed to the operating room electively on 06/04/2018. General anesthesia was induced by the anesthesia staff. The abdomen was sterilely prepped and draped. A small skin incision was accomplished in the left upper quadrant. A Veress needle was inserted through the skin incision into the peritoneal cavity. CO2 insufflation was begun. Once a sufficient pneumoperitoneum had been achieved, a 5-mm trocar was inserted. Under direct internal vision utilizing the television camera, I inspected the abdomen. There were dense adhesions throughout the abdomen and a further laparoscopic attempt at a diagnosis was going to be fruitless. The trocar was removed. I then converted to an exploratory laparotomy through a generous midline incision. I dissected down into the peritoneal cavity. The peritoneal cavity was entered sharply. I began adhesiolysis. Despite meticulous adhesiolysis, some of the adhesions were grade III adhesions and this made the dissection difficult. Two full-thickness enterotomies occurred. These were both repaired with tangential firings of a TA-60 stapler, leaving an adequate lumen. These enterotomies were small and they were recognized immediately. I then continued my dissection. I incised along both white lines of Toldt. I followed the left colon medially. The ureter was identified and was retracted for protection. I followed the right colon medially and there was a saccular structure that was boggy, edematous, and was at the Fabiano-en-Y junction and this represents an outpouching and perhaps technically a full-thickness diverticulum at this site. I believe that perhaps part of the patient's problem was overgrowth of bacteria in this outpouched area. I incised it. It was densely OPERATIVE REPORT [id number] ARTURO MARTINEZTHIA Layla adherent to the ureter. After my adhesiolysis here, it appeared that there was no ureteral injury. I elected to decrease the size of this diverticulum by performing a tangential stapling and I stapled off portion of this outpouching with a INES-75 stapler. So, this was a small bowel resection, but it was a tangential resection and did not require an anastomosis. I continued my adhesiolysis. I identified what appeared to be the duodenojejunal anastomosis and then the Fabiano-en-Y that connected with what appeared to be a gastrojejunal limb. These were retrocolic passages of the jejunum. I placed the 2 limbs in apposition side by side and sutured them in place with 3-0 Vicryls. I then closed the mesenteric rent in the mesocolon with 3-0 Vicryl sutures in order to prevent a hernia from occurring. I continued my analysis of the gastrointestinal system caudad to the transverse colon. I identified the junction of the Fabiano-en-Y and the place where I stapled away this diverticular structure. I think the patient's main problem was there was a limb of the ileum, that was the distal ileum, and it was very inflamed and appeared to have been almost completely obstructing. Although the patient states that she has had a prior colectomy for ulcerative colitis, I did not find any colonic defect. The entire colon and rectum appeared to be in place. I chose to excise this very swollen portion of the distal ileum, which could actually represent Crohn's disease. In order to create a more adequate anastomosis, I chose for a [id number] anastomosis and this was going to best be handled by excising the cecum along with the distal ileum. I chose the proximal extent of my resection to be the ileum, where it became supple. A window was created in the mesentery of the small bowel here and I stapled across the ileum with a INES-75 stapler. I then stapled across the colon just upstream from the ileocecal valve with INES-75 stapler. The interposed mesentery was sealed and divided with the Super Jaw EnSeal device. The specimen was sent to pathology as a single specimen. I then placed the colon and the small bowel into apposition side by side. A small colotomy and a small enterotomy were accomplished. I then advanced anvils of the INES-75 stapler and fired. The resulting enterocolonic defect was closed with single firing of the TA-60 stapler. The anastomosis was patent to at least 3 fingers. I closed the mesenteric rent between the small bowel and the colon with running #1 Vicryl as well as few imbricating 3-0 Vicryls. I then ran the small bowel 3 additional times to look for any full-thickness enterotomies and I identified none. I irrigated in all quadrants and aspirated. There was no further bleeding. Two drains were brought out, one in the left flank and one in the right flank. One was placed down in the pelvis and one was placed up under the left diaphragm. These were 19-Turkish fully fluted closed suction drains. They were sutured to skin with 3-0 Prolenes. The midline fascia was approximated with running looped #1 PDS's from cephalad and caudad directions. This was done in a running horizontal mattress fashion. As I anticipate there may be risk of infection as there was some minor spillage of small bowel contents, I elected to space out my erwin and sutures to allow for any drainage to occur through the suture line OPERATIVE REPORT [id number] SHANIKA MARTINEZ in order to prevent a subcutaneous wound infection. The subdermis was approximated at several sites with interrupted 3-0 Vicryls. The skin was approximated with very widely spaced metallic clips. At the left upper quadrant trocar site, this was closed with a single 3-0 Vicryl in an intracuticular fashion. The patient was then extubated and conveyed to the postanesthesia care unit, where she was in stable condition. TRANSINT:[id number] Voice Confirmation ID: [id number] DOCUMENT ID: [id number] JUAN F CABAN MD at 1702 CC: MIRANDA GALEANO MD, HANNAH SHORE and LELE GARCIA DO [id number] DICTATION DATE: 06/04/18 1425 BUS INSPECTOR: 06/04/18 1843 ADM IN [facility] [address] [place] [address]
--- NOTE | 2018-06-05 17:20 | NUR ---
DR CABAN AT BEDSIDE GIVEN UDPATE. NO NEW CHANGES
--- NOTE | 2018-06-05 19:30 | NUR ---
SHIFT ASSESSMENT COMPLETE, ASSISSTED PATIENT TO REPOSITION, NO OTHER NEEDS VOICED OR NOTED AT THIS TIME, C/L IN REACH
--- NOTE | 2018-06-05 21:00 | NUR ---
PATIENT REPOSITIONED, ORAL CARE PROVIDED, TAFOYA CARE PROVIDED, C/L IN REACH
--- NOTE | 2018-06-05 23:00 | NUR ---
RE-ASSESSMENT COMPLETE, PER NURSING FLOWSHEET, NO OTHER NEEDS VOICED OR NOTED
[2018-06-06] VITALS (21 sets, daily range): BP systolic 103–152; BP diastolic 74–97
--- NOTE | 2018-06-06 00:08 | NUR ---
12 LEAD EKG OBTAINED, RESULTS ARE SINUS TACHYCARDIA AT RATE OF 169 (SEE 12-LEAD EKG ON CHART)
--- NOTE | 2018-06-06 00:58 | NUR ---
PATIENT WETLANDS CONSERVATION LABORER ALARMING AT SINUS TACHYCARDIA, RATE OF 172 (SEE EKG STRIP)
--- NOTE | 2018-06-06 00:59 | NUR ---
DR ANTHONY JENKINS
--- NOTE | 2018-06-06 01:10 | NUR ---
DR. ANTHONY JENKINS
--- NOTE | 2018-06-06 01:13 | NUR ---
PATIENT CONTINUES IN SINUS TACHYCARDIA AT RATE OF 169 (SEE EKG STRIP IN CHART)
--- NOTE | 2018-06-06 01:20 | NUR ---
DR ANTHONY JENKINS
--- NOTE | 2018-06-06 01:23 | NUR ---
PATIENT EKG STRIP NOW SHOWS SINUS TACHYCARDIA AT A RATE OF 116 (SEE EKG STRIP IN CHART), WHICH IS A LOWER HEART RATE THAN THIS PATIENT HAS SUSTAINED OVER THE DURATION OF THIS NURSE'S SHIFT. NO RETURN PHONE CALL RECEIVED FROM M.D., THEREFORE, NO NEW ORDERS RECEIVED AT THIS TIME. WILL CONTINUE TO CLOSELY MONITOR THIS PATIENT AND PAGE REWIND OPERATOR AGAIN, SHOULD ANY FURTHER ABNORMALITIES OCCUR.
--- NOTE | 2018-06-06 03:00 | NUR ---
RE-ASSESSMENT COMPLETE, ORAL CARE PROVIDED, PATIENT ASSISTED IN REPOSITIONING, CONTINUE POC
[2018-06-06 04:12] LABS: BASOPHILS 0.1 % (0-2); EOSINOPHILS 0.1 % (0-7); HEMATOCRIT 34.8 % (36.0-48.0); HEMOGLOBIN 11.6 g/dL (12-16); IMMATURE GRANULOCYTES 0.7 % (0-5); MCH 29.9 pg (26.0-34.0); MCHC 33.3 g/dL (31.0-37.0); MCV 89.7 fL (80.0-100.0); MEAN PLATELET VOLUME 10.7 fL (7.4-10.4); MONOCYTES 9.1 % (2-11); PLATELET COUNT 331 10x3/uL (130-400); RBC 3.88 10x6/uL (4.00-5.40); RDW 16.1 % (11.5-14.5)
[2018-06-06 04:25] LABS: ALBUMIN 1.6 g/dL (3.4-5.0); ALKALINE PHOSPHATASE 69 U/L (46-116); BILIRUBIN - TOTAL 0.36 mg/dL (0.2-1.3); CALCIUM 8.8 mg/dL (8.5-10.1); CARBON DIOXIDE 26.2 mmol/L (21.0-32.0); CHLORIDE - SERUM 102 mmol/L (98-107); POTASSIUM - SERUM 3.4 mmol/L (3.5-5.1); PROTEIN - SERUM 5.9 g/dL (6.4-8.2); SODIUM 138 mmol/L (136-145); UREA NITROGEN 8 mg/dL (7-18)
[2018-06-06 04:26] LABS: ALT (SGPT) 5 U/L (10-68); CALC OSMOLALITY 273 mosm/kg (275-300); CREATININE - SERUM 0.5 mg/dL (0.6-1.3); GLUCOSE 100 mg/dL (74-106); eGFR NON AFRICAN AMERICAN > 90 mL/min (90-120)
--- NOTE | 2018-06-06 05:00 | NUR ---
PATIENT SLEEPING, NO APPARENT DISTRESS, CONTINUING TO MONITOR VS, C/L AND EXHIBITION ORGANISER DEMAND BOLUS CONTROL IN REACH
--- NOTE | 2018-06-06 07:46 | NUR ---
SHIFT REPORT RECEIVED. PT AWAKE AND ALERT. REPORTS PAIN 8/10 AT ABDOMINAL INCISION. ON DILAUDID RESTAURANT HOSPITALITY MANAGER 0.2MG Q 10MIN WITH 4MG/4HR LOCKOUT. ASKED PT IF SHE HAD BEEN PRESSING THE BUTTON FOR PAIN MEDICINE AND SHE SAID "YES, BUT I HAVE BEEN TRYING TO BACK OFF OF IT. ENCOURAGED PT TO NOT LET PAIN GET TOO HIGH SINCE IT IS HARDER TO CONTROL ONCE IT'S SEVERE. ON 2L OF O2 VIA NC WITH O2 SAT 100%. ORAL TEMP 99.3. BP 135/83 MAP 104. HR 122 SINUS TACHYCARDIA. ABDOMINAL INCISION WITH DRESSING IN PLACE. DEISY DRAIN X 2 R&L ABDOMEN. TAFOYA HAS BLUISH/GREEN URINE. L-SUB CVL WITH PROCALAMINE AT 50ML/HR AND NORMAL SALINE AT 125ML/HR. SHIFT ASSESSMENT COMPLETED. SAFETY MEASURES IN PLACE. CALL LIGHT IN REACH. NO FURTHER NEEDS. WILL CONTINUE TO MONITOR.
--- NOTE | 2018-06-06 08:15 | NUR ---
POTASSIUM WAS 3.4. 1ST BAG OF 20MEQ KCL INITIATED AT THIS TIME. COMPLETE LINEN CHANGE PROVIDED AT THIS TIME. PULLED UP AND REPOSITIONED FOR COMFORT. NO FURTHER NEEDS AT THIS TIME. WILL CONTINUE TO MONITOR.
--- NOTE | 2018-06-06 11:00 | NUR ---
RE-ASSESSMENT COMPLETED. NO ACUTE CHANGES FROM PREVIOUS ASSESSMENT. CONTINUES TACHYCARDIC IN 120S. NO FEVER. REPORTS PAIN 7/10 ON ABDOMEN INCISION. DILAUDID MIDDLE SCHOOL BASEBALL COACH IN USE. NO FURTHER NEEDS AT THIS TIME. WILL CONTINUE TO MONITOR.
--- NOTE | 2018-06-06 14:33 | NUR ---
RESTING COMFORTABLY. DENIES ANY NEEDS AT THIS TIME. SPOUSE VISITED WITH PATIENT DURING VISITATION TIME. HAS TRANSFER ORDERS TO THE FLOOR. NO ROOMS AVAILABLE AT THIS TIME. WILL CONTINUE TO MONITOR.
--- NOTE | 2018-06-06 15:34 | NUR ---
RESTING COMFORTABLY. DILAUDID GARAGE MANAGER IN USE. HR 114 SINUS TACHYCARDIA. PT ASKING ABOUT WHEN SHE WILL BE TRANSFERRING TO FLOOR. NO ROOM AVAILABLE AT THIS TIME. NO FURHTER NEEDS. WILL CONTINUE TO MONITOR.
--- NOTE | 2018-06-06 17:37 | NUR ---
PT WITH EYES CLOSED. AROUSES TO VOICE. LOPRESSOR GIVEN AT THIS TIME PER ORDER. NO FURTHER NEEDS AT THIS TIME. WILL CONTINUE TO MONITOR.
--- NOTE | 2018-06-06 17:40 | NUR ---
POTASSIUM RE-CHECK 3.6. NO FURTHER ACTION NEEDED PER ELECTROLYTE PROTOCOL.
--- NOTE | 2018-06-06 19:45 | NUR ---
PT AOX4, ANSWERS QUESTIONS APPROPRIATELY. VSS, C/O PAIN 09/09. DYE REEL OPERATOR HELPER TEACHING COMPLETED AT THIS TIME. PT VERBALIZES UNDERSTANDING. REPOSITIONED FOR COMFORT. MIDLINE ABD INCISION WITH ROLAND HEARN, NO S/S OF BLEEDING OR OOZING. BILATERAL JPS INTACT AND COMPRESSED WITH NO DRAINAGE PRESENT AT THIS TIME. PT NPO, ORAL CARE PROVIDED WITH SWABS AT THIS TIME. PT DENIES FURTHER NEEDS AT THIS TIME. CALL LIGHT AND BEDSIDE TABLE WITHIN PT REACH. CPOC.
--- NOTE | 2018-06-06 21:00 | NUR ---
PT RESTING WITH NO COMPLAINTS AT THIS TIME. VSS, DENIES NEEDS. CALL LIGHT WITHIN PT REACH. CPOC.
--- NOTE | 2018-06-06 23:30 | NUR ---
PT SLEEPING QUIETLY, AROUSES EASILY, AOX4. NO CHANGES NOTED AT THIS TIME. ORAL CARE PROVIDED. PT REPOSITIONED FOR COMFORT. DENIES NEEDS. CALL LIGHT WITHIN PT REACH. CPOC.
--- NOTE | 2018-06-07 01:30 | NUR ---
PT SLEEPING QUIETLY WITH UNLABORED RESPIRATIONS, VSS. NO S/S OF PAIN OR DISTRESS. PT ALLOWED TO CONTINUE SLEEPING UNDISTURBED AT THIS TIME. CALL LIGHT WITHIN PT REACH. CPOC.
[2018-06-07 03:00] VITALS: BP 136/92
--- NOTE | 2018-06-07 03:30 | NUR ---
PT RESTING QUIETLY WITH NO C/O AT THIS TIME. NO CHANGES FROM SHIFT ASSESSMENT. PT REPOSITIONED FOR COMFORT WITH MINIMAL ASSISTANCE. VSS, NO S/S OF ACUTE DISTRESS. ABD DRSG CDI, NO S/S OF OOZING AT THIS TIME. BILATERAL DEISY DRAINS INTACT AND COMPRESSED. DENIES FURTHER NEEDS AT THIS TIME. CALL LIGHT WITHIN PT REACH CPOC.
--- NOTE | 2018-06-07 04:45 | NUR ---
I&O'S COMPLETED AT THIS TIME, TAFOYA/BECCA CARE PROVIDED. PARTIAL LINEN CHANGE COMPLETED. PT REPOSITIONED FOR COMFORT. VSS, DENIES FURTHER NEEDS AT THIS TIME. CALL LIGHT WITHIN PT REACH. CPOC.
[2018-06-07 07:00] VITALS: BP 134/89
--- NOTE | 2018-06-07 08:02 | NUR ---
UP IN BED AWAKE AT THIS TIME WATCHING TV. DENIES ANY NEEDS. NO ACUTE DISTRESS NOTED. DRESSINGS CDI. REPOSITIONS SELF FREQUENTLY. WILL CONTINUE PLAN OF CARE.
[2018-06-07 09:05] LABS: BASOPHILS 0.2 % (0-2); EOSINOPHILS 2.7 % (0-7); HEMATOCRIT 30.5 % (36.0-48.0); IMMATURE GRANULOCYTES 0.6 % (0-5); LYMPHOCYTES 14.7 % (15-50); MCH 30.1 pg (26.0-34.0); MCHC 32.8 g/dL (31.0-37.0); MEAN PLATELET VOLUME 10.4 fL (7.4-10.4); NEUTROPHILS 73.8 % (40-80); PLATELET COUNT 321 10x3/uL (130-400); RBC 3.32 10x6/uL (4.00-5.40); RDW 15.7 % (11.5-14.5)
[2018-06-07 09:10] LABS: MCV 91.9 fL (80.0-100.0)
[2018-06-07 09:22] LABS: ALBUMIN 1.4 g/dL (3.4-5.0); ALKALINE PHOSPHATASE 58 U/L (46-116); ALT (SGPT) 8 U/L (10-68); BILIRUBIN - TOTAL 0.33 mg/dL (0.2-1.3); CALC OSMOLALITY 269 mosm/kg (275-300); CALCIUM 8.1 mg/dL (8.5-10.1); CARBON DIOXIDE 25.4 mmol/L (21.0-32.0); CHLORIDE - SERUM 102 mmol/L (98-107); CREATININE - SERUM 0.4 mg/dL (0.6-1.3); GLUCOSE 79 mg/dL (74-106); POTASSIUM - SERUM 3.3 mmol/L (3.5-5.1); PROTEIN - SERUM 5.3 g/dL (6.4-8.2); SODIUM 137 mmol/L (136-145); UREA NITROGEN 5 mg/dL (7-18); eGFR NON AFRICAN AMERICAN > 90 mL/min (90-120)
--- NOTE | 2018-06-07 10:02 | NUR ---
NO ACUTE DISTRESS NOTED. FAMILY AT BEDSIDE. PT DENIES ANY NEEDS. WILL CONTINUE PLAN OF CARE.
[2018-06-07 11:00] VITALS: BP 117/73
--- NOTE | 2018-06-07 13:27 | NUR ---
POTASSIUM REPLACEMENT PROVIDED VIA ELECTROLYTE PROTOCOL.
--- NOTE | 2018-06-07 14:34 | NUR ---
PT COMPLAINT OF PAIN. BENEFIT DIRECTOR HAD BEEN DC PER ORDERS. DR GALEANO CONTACTED. ORDERS RECIEVED.
--- NOTE | 2018-06-07 16:03 | NUR ---
UP IN BED WATCHING TV AT THIS TIME. NO ACUTE DISTRESS NOTED. CALL LIGHT IN REACH. WILL CONTINUE PLAN OF CARE.
--- NOTE | 2018-06-07 16:37 | NUR ---
PER DR CABAN ORDERS DC DEISY DRAINS X 2. DCD AT THIS TIME PER PHYSICIAN ORDERS AFTER SUITURES DC TO SITES. 4X4 AND TAPE APPLIED OVER DCD SITES. NO ACUTE DISTESS NOTED. WILL CONTINUE PLAN OF CARE.
--- NOTE | 2018-06-07 16:54 | NUR ---
REPORT CALLED TO [facility]. WILL TRANSPORT PT SHORTLY.
--- NOTE | 2018-06-07 18:20 | NUR ---
PT TRANSFERRED TO 2235 AT THIS TIME VIA BED ACCOMPANIED BY HOSPITAL STAFF WITH ALL PERSONAL ITMES. NO ACUTE DISTRESS NOTED. BED BATH AND TOTAL LINEN CHANGE PROVIDED BEFORE TRANSFER. NO FURTHER ACTIONS.
--- NOTE | 2018-06-07 18:33 | NUR ---
PT RECIEVED TO MED/SURG UNIT. LYING IN BED AOO X3 TO PERSON, PLACE, AND TIME. NO SIGNS OF DISTRESS NOTED. S1 AND S2 HEARD AT AORTIC, PULMONIC, ERBS, TRICUSPID, AND MITRAL SITES- REG RHYTHM. LUNG SOUNDS CTA. BOWEL SOUNDS HYPOACTIVE. WILL CONTINUE TO MONITOR PT. BED IN LOWEST POSITION, SIDE RAILS UP X2, CL IN REACH.
[2018-06-07 20:00] VITALS: BP 141/85
[2018-06-08] VITALS: BP 143/80
--- NOTE | 2018-06-08 01:30 | NUR ---
PT VOMITED APPROXIMATELY 600 CC'S YELLOW/GREEN EMESIS AND CONTINUED TO VOMIT AFTER ZOFRAN GIVEN EARLIER. PAGED DR CABAN. CHANGED ZOFRAN ORDER FROM Q8H TO Q4H AND PLACED 16FR NG TUBE PER TELPHONE ORDER. CONFIRMED PROPER PLACEMENT BY AUSCULTATION AND STAT KUB. RECEIVED 200 CC'S GREEN LIQUID IMMEDIATELY TO CANNISTER. NG TO LIS. PT STATES SHE "FEELS MUCH BETTER."
[2018-06-08 04:00] VITALS: BP 133/79
--- NOTE | 2018-06-08 05:12 | NUR ---
PT WOKE UP DISORIENTED. PULLED OUT NG TUBE. EXPLAINED TO PT THE NEED TO REINSERT NGT. PT REFUSES NGT. PT SAYS SHE WANTS TO WAIT AND SEE IF SHE "DOES BETTER." PT STATES, "IF I START THROWING UP AGAIN, I'LL LET YOU PUT IT IN AGAIN." NO OTHER NEEDS. WILL CONTINUE TO MONITOR.
--- NOTE | 2018-06-08 07:40 | NUR ---
PT RESTING IN BED, EYES CLOSED. RESPIRATIONS EVEN AND UNLABORED. AROUSES TO VOICE. PT ADMITTED WITH ABDOMINAL PAIN. POD 3 SMALL BOWEL RESECTION. DRESSING TO MIDLINE ABD, CDI. TAFOYA PRESENT. PICC TO LEFT SUBCLAVIAN, SITE PATENT AND WITHOUT REDNESS OR SWELLING. NS INFUSING AT 125ML/HR. PROCAL INFUSING AT 50 ML/HR. PT ON ELECTROLYTE PROTOCOL. SCDS PRESENT AND ON. NO C/O PAIN. NO S/S OF DISTRESS NOTED. PT STATES SHE FEELS MUCH BETTER TODAY. PT DENIES ANYTHING FURTHER AT THIS TIME. CALL LIGHT IN REACH. WILL CONTINUE TO MONITOR.
[2018-06-08 08:24] VITALS: BP 149/84
--- NOTE | 2018-06-08 08:38 | NUR ---
YPT C/O NAUSEA AND PAIN. PAIN RATED 7/10 TO ABDOMEN. GAVE ZOFRAN FOR NAUSEA, AND GAVE DILAUDID FOR PAIN. NO S/S OF DISTRESS NOTED. PT DENIES ANYTHING FURTHER AT THIS TIME. CALL LIGHT IN REACH. WILL CONTINUE TO MONITOR.
[2018-06-08 09:24] LABS: BASOPHILS 0.2 % (0-2); CALC OSMOLALITY 275 mosm/kg (275-300); CALCIUM 8.3 mg/dL (8.5-10.1); CARBON DIOXIDE 25.6 mmol/L (21.0-32.0); CHLORIDE - SERUM 102 mmol/L (98-107); CREATININE - SERUM 0.4 mg/dL (0.6-1.3); EOSINOPHILS 1.9 % (0-7); GLUCOSE 92 mg/dL (74-106); HEMATOCRIT 35.2 % (36.0-48.0); HEMOGLOBIN 11.6 g/dL (12-16); IMMATURE GRANULOCYTES 0.3 % (0-5); LYMPHOCYTES 13.8 % (15-50); MCH 30.1 pg (26.0-34.0); MCV 91.4 fL (80.0-100.0); MEAN PLATELET VOLUME 10.4 fL (7.4-10.4); MONOCYTES 10.7 % (2-11); NEUTROPHILS 73.1 % (40-80); POTASSIUM - SERUM 3.5 mmol/L (3.5-5.1); RBC 3.85 10x6/uL (4.00-5.40); RDW 14.9 % (11.5-14.5); SODIUM 139 mmol/L (136-145); UREA NITROGEN 6 mg/dL (7-18); WBC 9.5 10x3/uL (4.8-10.8); eGFR NON AFRICAN AMERICAN > 90 mL/min (90-120)
[2018-06-08 09:37] LABS: PLATELET COUNT 424 10x3/uL (130-400)
[2018-06-08 12:00] VITALS: BP 152/89
--- NOTE | 2018-06-08 12:41 | NUR ---
PT C/O PAIN AND NAUSEA. PAIN RATED 8/10, GAVE DILAUDID FOR PAIN. GAVE ZOFRAN FOR NAUSEA. NO S/S OF DISTRESS NOTED. PT DENIES ANYTHING FURTHER AT THIS TIME. CALL LIGHT IN REACH. WILL CONTINUE TO MONITOR.
--- NOTE | 2018-06-08 14:56 | NUR ---
NUTRITION F/U PT REMAINS NPO. PROCALAMINE @ 50 CC/HR. WILL PROVIDE DIET WHEN RESUMED. RD FOLLOWING
[2018-06-08 16:13] VITALS: BP 139/77
--- NOTE | 2018-06-08 17:56 | NUR ---
ALERT AND ORIENTED X 4. C/O NAUSEA. TAFOYA PATENT WITH CLEAR YELLOW URINE. MIDLINE DRESSING CLEAN DRY AND INTACT. RIGHT SUBCLAVIAN INFUSING NORMAL SALINE AT 125 PROCAL AT 50 AND A DILAUDID DYNAMICIST. LUNG SOUNDS CLEAR BUT DIMINISHED BOWEL SOUNDS ARE ABSENT. DENIES NEEDS AT THIS TIME
--- NOTE | 2018-06-08 18:53 | NUR ---
PT RESTING IN BED. BRAILLE TRANSCRIBER DILAUDID 0.2-10-4. NO C/O PAIN. NO S/S OF DISTRESS NOTED. PT DENIES ANYTHING FURTHER AT THIS TIME. CALL LIGHT IN REACH. WILL CONTINUE TO MONITOR.
--- NOTE | 2018-06-08 20:26 | NUR ---
AWAKE,ALERT.NO COMPLAITNS VOICED. CENTRAL LINE INTACT TO LEFT CHEST WITHOUT REDENESS OR EDEMA NOTED. NS INFUSING @ 3O CC/HR. PROCAL INFUSING @ 50 CC/HR.TRAILER TECHNICIAN DILAUDID IN USE FOR PAIN CONTROL.DRESSING X 3 INTACT TO ABD. MIDLINE DRSG WITH OLD DRAINAGE NOTED. TAFOYA PATENT AND DRAINING CLEAR YELLOW URINE. CL IN REACH
[2018-06-09] VITALS: BP 151/87
--- NOTE | 2018-06-09 03:48 | NUR ---
RESTING IN BED WITH NO S/S OF DISTRESS, NO NEEDS NOTED OR STATED AT THIS TIME CALL LIGHT IN REACH.
[2018-06-09 05:52] LABS: BASOPHILS 0.2 % (0-2); HEMATOCRIT 36.7 % (36.0-48.0); HEMOGLOBIN 12.4 g/dL (12-16); IMMATURE GRANULOCYTES 0.4 % (0-5); LYMPHOCYTES 6.1 % (15-50); MCH 30.5 pg (26.0-34.0); MCHC 33.8 g/dL (31.0-37.0); MCV 90.2 fL (80.0-100.0); MEAN PLATELET VOLUME 10.5 fL (7.4-10.4); MONOCYTES 8.8 % (2-11); NEUTROPHILS 83.5 % (40-80); PLATELET COUNT 441 10x3/uL (130-400); RBC 4.07 10x6/uL (4.00-5.40); RDW 14.7 % (11.5-14.5); WBC 11.6 10x3/uL (4.8-10.8)
[2018-06-09 06:34] LABS: ALKALINE PHOSPHATASE 66 U/L (46-116); ALT (SGPT) 8 U/L (10-68); BILIRUBIN - TOTAL 0.48 mg/dL (0.2-1.3); CALC OSMOLALITY 270 mosm/kg (275-300); CALCIUM 8.1 mg/dL (8.5-10.1); CHLORIDE - SERUM 99 mmol/L (98-107); CREATININE - SERUM 0.4 mg/dL (0.6-1.3); GLUCOSE 118 mg/dL (74-106); POTASSIUM - SERUM 3.4 mmol/L (3.5-5.1); PROTEIN - SERUM 6.3 g/dL (6.4-8.2); SODIUM 136 mmol/L (136-145); UREA NITROGEN 6 mg/dL (7-18); eGFR NON AFRICAN AMERICAN > 90 mL/min (90-120)
[2018-06-09 06:48] LABS: ALBUMIN 1.9 g/dL (3.4-5.0)
[2018-06-09 08:15] VITALS: BP 157/98
--- NOTE | 2018-06-09 08:43 | NUR ---
AWAKE AND ALERT. ORIENTED X3. C/O NAUSEA AT THIS TIME. GIVEN 4MG ZOFRAN SLOW IVP FOR SAME. WILL MONITOR. LUNGS ARE CLEAR BILATERALLY, NO COUGH NOTED. SKIN IS INTACT WITHOUT REDNESS EXCEPT INCISIONS TO ABDOMEN WHICH HAVE NEED DRESSINGS CHANGED, THEY ARE OLD DRY BLOOD. LEFT SUBCLAVIAN IS PATENT WITHOUT REDNESS AT INSERTION SITE. TAFOYA PATENT WITH CLEAR YELLOW URINE. DENIES NEEDS FOR NOW.
--- NOTE | 2018-06-09 11:30 | NUR ---
LINE WILL NOT DRAW BLOOD. LAB NOTIFIED. TAFOYA D/C WITH TIP INTACT WITHOUT COMPLICATIONS. DENIES NEEDS.
[2018-06-09 12:07] VITALS: BP 141/76
--- NOTE | 2018-06-09 16:00 | NUR ---
VENOUS DOPPLER IN PROGRESS. DENIES NEEDS.
[2018-06-09 16:08] VITALS: BP 138/88
--- NOTE | 2018-06-09 16:30 | NUR ---
VOIDED LARGE VOLUMN OF URINE WITHOUT DIFFICULTY.
--- NOTE | 2018-06-09 18:49 | NUR ---
REFUSED SUPPER TRAY. CONTINUES TO C/O ABDOMINAL PAIN AND NAUSE. GIVEN 4 MG ZOFRAN SLOW IVP FOR SAME. WILL MONITOR. DENIES NEEDS.
[2018-06-09 20:00] VITALS: BP 140/87
--- NOTE | 2018-06-09 20:30 | NUR ---
PT RESTING IN BED. ALERT AND ORIENTED. PT STATES NO PROBLEMS AT THIS TIME. IV SITE LT CENTRAL SUBCLAVIAN. DRESSING CLEAN DRY AND INTACT. NO SIGNS OF INFECTION. NO LOWER LEG SWELLING PRESENT. WILL CONTINUE PLAN OF CARE. CALL LIGHT IN REACH.
[2018-06-10] VITALS: BP 142/100
[2018-06-10 04:00] VITALS: BP 143/90
--- NOTE | 2018-06-10 04:42 | NUR ---
RESTING IN BED NO S/S OF DISTRESS RESPRATIONS ARE EVEN AND UNLABORED ACLLLIGHT IN REACH
[2018-06-10 05:04] LABS: BASOPHILS 0.2 % (0-2); EOSINOPHILS 6.3 % (0-7); HEMATOCRIT 34.1 % (36.0-48.0); HEMOGLOBIN 11.1 g/dL (12-16); IMMATURE GRANULOCYTES 0.5 % (0-5); LYMPHOCYTES 12.2 % (15-50); MCH 29.8 pg (26.0-34.0); MCHC 32.6 g/dL (31.0-37.0); MCV 91.7 fL (80.0-100.0); MEAN PLATELET VOLUME 10.5 fL (7.4-10.4); MONOCYTES 10.7 % (2-11); NEUTROPHILS 70.1 % (40-80); PLATELET COUNT 432 10x3/uL (130-400); RBC 3.72 10x6/uL (4.00-5.40); RDW 14.8 % (11.5-14.5); WBC 12.1 10x3/uL (4.8-10.8)
[2018-06-10 05:31] LABS: ALBUMIN 1.7 g/dL (3.4-5.0); ALKALINE PHOSPHATASE 59 U/L (46-116); BILIRUBIN - TOTAL 0.36 mg/dL (0.2-1.3); CALC OSMOLALITY 270 mosm/kg (275-300); CALCIUM 7.8 mg/dL (8.5-10.1); CARBON DIOXIDE 29.4 mmol/L (21.0-32.0); CHLORIDE - SERUM 100 mmol/L (98-107); CREATININE - SERUM 0.4 mg/dL (0.6-1.3); GLUCOSE 99 mg/dL (74-106); POTASSIUM - SERUM 3.8 mmol/L (3.5-5.1); PROTEIN - SERUM 5.6 g/dL (6.4-8.2); SODIUM 137 mmol/L (136-145); UREA NITROGEN 5 mg/dL (7-18); eGFR NON AFRICAN AMERICAN > 90 mL/min (90-120)
[2018-06-10 05:36] LABS: ALT (SGPT) 5 U/L (10-68)
--- NOTE | 2018-06-10 08:12 | NUR ---
AWAKE AND ALERT. ORIENTED X3. NO C/O AT THIS TIME. LUNGS ARE CLEAR BILATERALLY, NO COUGH NOTED. SKIN IS INTACT WITHOUT REDNESS EXCEPT INCISIONS TO ABDOMEN WHICH HAVE DRY INTACT DRESSINGS IN PLACE. LEFT SUBCLAVIAN PATENT WITHOUT REDNESS AT INSERTION SITE. DENIES NEEDS.
[2018-06-10 08:34] VITALS: BP 144/88
--- NOTE | 2018-06-10 09:45 | NUR ---
AMBULATED 250 FEET WITH STAFF. NO SOB WITH ACTIVITY. NO INCREASE IN PAIN LEVEL.
--- NOTE | 2018-06-10 12:15 | NUR ---
C/O NAUSEA. GIVEN 4MG ZOFRAN SLOW IVP FOR SAME. WILL MONITOR.
[2018-06-10 12:19] VITALS: BP 127/70
[2018-06-10 16:54] VITALS: BP 156/87
--- NOTE | 2018-06-10 18:37 | NUR ---
RESTING QUIETLY IN BED. STILL C/O NAUSEA. WILL MONITOR. DENIES NEEDS.
[2018-06-10 20:00] VITALS: BP 147/81
--- NOTE | 2018-06-10 20:17 | NUR ---
RESUMING CARE. PT IS ALERT LAYING IN BED WITH NO C/O VOICED AT THIS TIME. PT HAS A LEFT SUBCLAVIAN WITH NORMAL SALINE RUNNING AT 125. BED IN THE LOWEST POSITION WITH CALL LIGHT IN REACH. WILL CONTINUE TO MONITOR PT AND FOLLOW PLAN OF CARE.
[2018-06-11] VITALS: BP 148/82
--- NOTE | 2018-06-11 00:44 | NUR ---
LYING IN BED. AWAKE. NO DISTRESS. PROCAL AND NS INFUSING WITHOUT DIFF. PLANNER IN USE. RESP EVEN AND NONLABORED. SR ELEVATED X2. CL IN REACH.
--- NOTE | 2018-06-11 01:09 | NUR ---
PT IS ALERT LAYING IN BED. PT STATED THAT SHE WAS NAUSEATED. AT 2344 ZOFRAM 4MG WAS GIVEN IN PUSH. BED IN THE LOWEST POSITION WITH CALL LIGHT IN REACH. WILL CONTINUE TO MONITOR PT AND FOLLOW PLAN CARE.
[2018-06-11 04:00] VITALS: BP 142/76
[2018-06-11 08:01] LABS: ALBUMIN 1.9 g/dL (3.4-5.0); ALKALINE PHOSPHATASE 60 U/L (46-116); BILIRUBIN - TOTAL 0.27 mg/dL (0.2-1.3); CALC OSMOLALITY 274 mosm/kg (275-300); CALCIUM 8.1 mg/dL (8.5-10.1); CARBON DIOXIDE 29.5 mmol/L (21.0-32.0); CHLORIDE - SERUM 101 mmol/L (98-107); CREATININE - SERUM 0.4 mg/dL (0.6-1.3); GLUCOSE 92 mg/dL (74-106); POTASSIUM - SERUM 3.8 mmol/L (3.5-5.1); PROTEIN - SERUM 5.8 g/dL (6.4-8.2); SODIUM 139 mmol/L (136-145); UREA NITROGEN 5 mg/dL (7-18); eGFR NON AFRICAN AMERICAN > 90 mL/min (90-120)
[2018-06-11 08:15] LABS: ALT (SGPT) 7 U/L (10-68)
[2018-06-11 08:33] LABS: HEMATOCRIT 32.9 % (36.0-48.0); HEMOGLOBIN 11.1 g/dL (12-16); LYMPHOCYTES 19.9 % (15-50); MCH 30.9 pg (26.0-34.0); MCHC 33.7 g/dL (31.0-37.0); MCV 91.6 fL (80.0-100.0); MEAN PLATELET VOLUME 9.9 fL (7.4-10.4); NEUTROPHILS 64.6 % (40-80); PLATELET COUNT 425 10x3/uL (130-400); RBC 3.59 10x6/uL (4.00-5.40); RDW 14.5 % (11.5-14.5)
[2018-06-11 08:44] LABS: WBC 8.3 10x3/uL (4.8-10.8)
[2018-06-11 09:11] VITALS: BP 142/82
--- NOTE | 2018-06-11 10:03 | NUR ---
METOROLOL 5MG GIVEN IVP, B/P 142/82 HR 114
[2018-06-11 12:40] VITALS: BP 142/81
--- NOTE | 2018-06-11 14:43 | NUR ---
NUTRITION F/U CHART REVIEWED, PT VISIT. CONTINUES PROCALAMINE AT 50 CC/HR. PT REPORTS TOLERATING CLEAR LIQUIDS. DIET TO ADVANCE TO REG AT DINNER. RD FOLLOWING
[2018-06-11 16:26] VITALS: BP 151/85
--- NOTE | 2018-06-11 20:00 | NUR ---
RESUMING CARE. PT IS ALERT LAYING IN THE BED WATCHING TV. PT HAS A LEFT SUBCLAVIAN WITH PROCAL INFUSING AT 50 AND NORMAL SALINE INFUSING AT 20 KVO. BED IN THE LOWEST POSITION WITH CALL LIGHT IN USE. WILL CONTINUE TO MONITOR PT AND FOLLOW PLAN OF CARE.
[2018-06-11 20:29] VITALS: BP 149/79
[2018-06-12 00:05] VITALS: BP 157/88
--- NOTE | 2018-06-12 01:58 | NUR ---
PATIENT IS AWAKE IN BED WITH TV ON STATED NO NEEDS ,NO S/S OF DISTRESS NOTED, CALL LIGHT IN REACH
[2018-06-12 04:49] VITALS: BP 159/82
[2018-06-12 05:34] LABS: ALBUMIN 2.3 g/dL (3.4-5.0); ALKALINE PHOSPHATASE 69 U/L (46-116); ALT (SGPT) 7 U/L (10-68); CALCIUM 8.8 mg/dL (8.5-10.1); CARBON DIOXIDE 28.2 mmol/L (21.0-32.0); CHLORIDE - SERUM 99 mmol/L (98-107); POTASSIUM - SERUM 4.2 mmol/L (3.5-5.1); PROTEIN - SERUM 6.6 g/dL (6.4-8.2); SODIUM 136 mmol/L (136-145)
[2018-06-12 05:40] LABS: CALC OSMOLALITY 272 mosm/kg (275-300); CREATININE - SERUM 0.6 mg/dL (0.6-1.3); GLUCOSE 148 mg/dL (74-106); UREA NITROGEN 7 mg/dL (7-18); eGFR NON AFRICAN AMERICAN > 90 mL/min (90-120)
[2018-06-12 05:54] LABS: BASOPHILS 0.2 % (0-2); EOSINOPHILS 0 % (0-7); HEMATOCRIT 36.2 % (36.0-48.0); IMMATURE GRANULOCYTES 0.8 % (0-5); LYMPHOCYTES 13.1 % (15-50); MCHC 33.1 g/dL (31.0-37.0); MCV 90.5 fL (80.0-100.0); MEAN PLATELET VOLUME 10.6 fL (7.4-10.4); MONOCYTES 3.8 % (2-11); NEUTROPHILS 82.1 % (40-80); PLATELET COUNT 524 10x3/uL (130-400); RDW 14.5 % (11.5-14.5); WBC 6.6 10x3/uL (4.8-10.8)
[2018-06-12 08:49] VITALS: BP 101/61
[2018-06-12 11:45] VITALS: BP 116/69
[2018-06-12 15:35] VITALS: BP 145/83
[2018-06-12 19:33] VITALS: BP 148/79
[2018-06-13 05:42] LABS: BASOPHILS 0.1 % (0-2); EOSINOPHILS 0.1 % (0-7); HEMATOCRIT 36.2 % (36.0-48.0); HEMOGLOBIN 11.8 g/dL (12-16); IMMATURE GRANULOCYTES 0.6 % (0-5); LYMPHOCYTES 21.5 % (15-50); MCH 29.9 pg (26.0-34.0); MCHC 32.6 g/dL (31.0-37.0); MCV 91.6 fL (80.0-100.0); MEAN PLATELET VOLUME 10.4 fL (7.4-10.4); MONOCYTES 14.2 % (2-11); NEUTROPHILS 63.5 % (40-80); PLATELET COUNT 569 10x3/uL (130-400); RBC 3.95 10x6/uL (4.00-5.40); RDW 14.6 % (11.5-14.5)
[2018-06-13 06:04] LABS: WBC 8.5 10x3/uL (4.8-10.8)
[2018-06-13 06:42] LABS: ALBUMIN 2.4 g/dL (3.4-5.0); ALKALINE PHOSPHATASE 66 U/L (46-116); BILIRUBIN - TOTAL 0.25 mg/dL (0.2-1.3); CALCIUM 8.8 mg/dL (8.5-10.1); CARBON DIOXIDE 30.2 mmol/L (21.0-32.0); CHLORIDE - SERUM 98 mmol/L (98-107); CREATININE - SERUM 0.6 mg/dL (0.6-1.3); GLUCOSE 113 mg/dL (74-106); POTASSIUM - SERUM 4.4 mmol/L (3.5-5.1); PROTEIN - SERUM 6.8 g/dL (6.4-8.2); SODIUM 135 mmol/L (136-145); eGFR NON AFRICAN AMERICAN > 90 mL/min (90-120)
[2018-06-13 06:44] LABS: ALT (SGPT) 9 U/L (10-68); CALC OSMOLALITY 269 mosm/kg (275-300); UREA NITROGEN 10 mg/dL (7-18)
[2018-06-13 09:00] VITALS: BP 130/72
--- NOTE | 2018-06-13 09:58 | NUR ---
Consult for Nutrition education for crohn's disease. Information from the [employer] was provided to pt Handout given over food to have and thouse to avoid. Recommendations provided. Quetions answered. RD to continue to follow Maya Valadez MS RD LD
[2018-06-13 12:00] VITALS: BP 139/78
[2018-06-13 16:00] VITALS: BP 143/70
--- NOTE | 2018-06-13 16:29 | NUR ---
ALERT AND ORIENTED.ABDOMINAL DRESSINGS INTACT. TELEMETRY UNAVAILABLE DENIES ANY CHEST PAIN OR DISCOMFORT HRRR ON AUSCULTATION.dILAUDID APPAREL FASHION DESIGNER DISCONTINUED WITH DURAGESIC PATCH TO BE APPLIED. ABDOMINAL DISCOMFORT AFTER EATING WITH ZOFRAN GIVEN PRN.ENCOURAGED TO USE CALL LIGHT FOR ASSSIT.
--- NOTE | 2018-06-13 19:55 | NUR ---
ALERT AND ORIENTED X4. AMBULATORY. RESP EVEN AND NONLABORED. RATES PAIN IN ABD 8. DILAUDID DOLLYMAN IN USE. NS @ 20 ML/HR AND PROCAL @ 50 ML/HR INFUSING IN LT SUBCLAVIAN WITHOUT DIFF. ABD DRSGS C/D/I. SCDS IN USE. PT HAS CHILLS. TEMP IS ELEVATED. SR ELEVATED X2. CL IN REACH.
[2018-06-13 20:04] VITALS: BP 178/85
--- NOTE | 2018-06-13 21:03 | NUR ---
MEDICATED WITH TYLENOL FOR ELEVATED TEMP. ORDER OBTAINED FROM DR. GUILLEN.
[2018-06-14 00:35] VITALS: BP 126/71
[2018-06-14 04:59] VITALS: BP 114/57
[2018-06-14 08:56] LABS: BASOPHILS 0.2 % (0-2); EOSINOPHILS 0.7 % (0-7); HEMATOCRIT 39.5 % (36.0-48.0); HEMOGLOBIN 13.1 g/dL (12-16); IMMATURE GRANULOCYTES 0.8 % (0-5); LYMPHOCYTES 7.3 % (15-50); MCH 30.2 pg (26.0-34.0); MCHC 33.2 g/dL (31.0-37.0); MEAN PLATELET VOLUME 10.1 fL (7.4-10.4); MONOCYTES 6.5 % (2-11); NEUTROPHILS 84.5 % (40-80); RBC 4.34 10x6/uL (4.00-5.40); RDW 14.7 % (11.5-14.5)
[2018-06-14 09:00] VITALS: BP 133/83
[2018-06-14 09:08] LABS: PLATELET COUNT 375 10x3/uL (130-400)
[2018-06-14 09:11] LABS: ALBUMIN 2.7 g/dL (3.4-5.0); ALKALINE PHOSPHATASE 69 U/L (46-116); ALT (SGPT) 9 U/L (10-68); BILIRUBIN - TOTAL 0.37 mg/dL (0.2-1.3); CALC OSMOLALITY 271 mosm/kg (275-300); CALCIUM 8.7 mg/dL (8.5-10.1); CARBON DIOXIDE 30.8 mmol/L (21.0-32.0); CHLORIDE - SERUM 98 mmol/L (98-107); CREATININE - SERUM 0.6 mg/dL (0.6-1.3); GLUCOSE 113 mg/dL (74-106); PROTEIN - SERUM 6.9 g/dL (6.4-8.2); SODIUM 136 mmol/L (136-145); UREA NITROGEN 11 mg/dL (7-18); eGFR NON AFRICAN AMERICAN > 90 mL/min (90-120)
[2018-06-14 12:00] VITALS: BP 132/79
[2018-06-14 12:57] LABS: APPEARANCE CLEAR (CLEAR); BILIRUBIN NEGATIVE (NEGATIVE); COLOR STRAW (YELLOW); GLUCOSE NEGATIVE (NEGATIVE); KETONE NEGATIVE (NEGATIVE); NITRITE NEGATIVE (NEGATIVE); PROTEIN NEGATIVE (NEGATIVE); SPECIFIC GRAVITY 1.015 (1.005-1.020)
[2018-06-14 12:58] LABS: AMORPHOUS SEDIMENT <1+ /lpf (NONE SEEN); BACTERIA MODERATE /hpf (NONE SEEN); MUCUS <1+ /lpf (NONE SEEN); WHITE CELLS - URINE OCC /hpf (0-5)
--- NOTE | 2018-06-14 13:50 | NUR ---
ALERT AND ORIENTED. ABDOMEN FLAT WITH ANKUR INTACT TO ABDOMEN. RECEIVING GEAR SHAVER SET UP OPERATOR DILAUDID AND FENTANYL PATCH FOR PAIN MANAGEMENT VIA LEFT SUBCLAVIAN. MS INFUSING AT 20 AND PROCALAMINE AT 50. UP AD ROBERT WITH FAMILY PRESENT. BS NOTED WITH INCREASE IN ABDOMINAL DISCOMFORT NOTED. ENCOURAGED TO USE CALL LIGHT FOR ASSSIT.
--- NOTE | 2018-06-14 19:50 | NUR ---
ALERT AND ORIENTED X4. LYING IN BED. RESP EVEN AND NONLABORED. REPORTS PAIN IN ABD 7. MANAGEMENT COORDINATOR DILAUDID IN USE. FENTANYL PATCH ON. ANKUR NOTED TO MIDLINE ABD INCISION. STATES SHE HAD A LARGE LOOSE BM. NS @ 20 ML/HR AND PROCAL @ 50 ML/HR INFUSING IN LT SUBCLAVIAN WITHOUT DIFF. AMBULATORY. NO EDEMA NOTED. SR ELEVATED X2. CL IN REACH.
[2018-06-14 20:47] VITALS: BP 143/80
[2018-06-15 00:41] VITALS: BP 154/74
[2018-06-15 04:52] VITALS: BP 135/70
[2018-06-15 05:39] LABS: BASOPHILS 0.2 % (0-2); EOSINOPHILS 1.3 % (0-7); IMMATURE GRANULOCYTES 0.6 % (0-5); LYMPHOCYTES 14.3 % (15-50); MCH 30.3 pg (26.0-34.0); MCHC 33.3 g/dL (31.0-37.0); MCV 90.9 fL (80.0-100.0); MEAN PLATELET VOLUME 10.4 fL (7.4-10.4); MONOCYTES 8.3 % (2-11); NEUTROPHILS 75.3 % (40-80); PLATELET COUNT 380 10x3/uL (130-400); RBC 3.96 10x6/uL (4.00-5.40); RDW 14.6 % (11.5-14.5); WBC 9.3 10x3/uL (4.8-10.8)
[2018-06-15 05:57] LABS: ALBUMIN 2.5 g/dL (3.4-5.0); ALKALINE PHOSPHATASE 66 U/L (46-116); BILIRUBIN - TOTAL 0.31 mg/dL (0.2-1.3); CALC OSMOLALITY 264 mosm/kg (275-300); CALCIUM 8.4 mg/dL (8.5-10.1); CARBON DIOXIDE 26.3 mmol/L (21.0-32.0); CHLORIDE - SERUM 96 mmol/L (98-107); CREATININE - SERUM 0.6 mg/dL (0.6-1.3); GLUCOSE 99 mg/dL (74-106); POTASSIUM - SERUM 3.6 mmol/L (3.5-5.1); PROTEIN - SERUM 6.5 g/dL (6.4-8.2); SODIUM 132 mmol/L (136-145); UREA NITROGEN 12 mg/dL (7-18); eGFR NON AFRICAN AMERICAN > 90 mL/min (90-120)
[2018-06-15 06:00] LABS: ALT (SGPT) 13 U/L (10-68)
[2018-06-15 09:14] VITALS: BP 132/78
--- NOTE | 2018-06-15 11:27 | NUR ---
ALERT AND ORIENTED X 3. MIDLINE ANKUR TO ABDOMEN INTACT W/O S/S OF INFECTION. ABDOMEN SOFT WITHBS NOTED. ZOFRAN GIVEN THIS AM FOR NAUSEA AND EFFECTIVE. GOOD ROM OF EXT.X4 AND UP AD ROBERT
[2018-06-15 12:00] VITALS: BP 139/69
[2018-06-15 21:52] VITALS: BP 160/68
--- NOTE | 2018-06-15 22:00 | NUR ---
A&O X 4. PT STATES PAIN IS TOLERABLE, BUT COULDN'T PUT A NUMBER ON IT. MIDLINE SUTURES DOWN ABDOMEN. PT REPORTS NAUSEA. ALSO STATES THAT HER LEFT ARM HURTS HER ON THE DAYS SHE GETS SHOTS ON THAT SIDE AND REQUESTS SUBQ INJECTIONS ON RIGHT ARM.
--- NOTE | 2018-06-16 04:30 | NUR ---
RESTING QUITELY IN BED RESP UNLABORED NO APPARENT DISTRESS
[2018-06-16 04:50] VITALS: BP 143/76
[2018-06-16 05:55] LABS: BASOPHILS 0.1 % (0-2); EOSINOPHILS 0.6 % (0-7); HEMATOCRIT 34.2 % (36.0-48.0); HEMOGLOBIN 11.2 g/dL (12-16); IMMATURE GRANULOCYTES 0.6 % (0-5); LYMPHOCYTES 17.2 % (15-50); MCH 29.6 pg (26.0-34.0); MCHC 32.7 g/dL (31.0-37.0); MCV 90.2 fL (80.0-100.0); MEAN PLATELET VOLUME 10.7 fL (7.4-10.4); MONOCYTES 10.2 % (2-11); NEUTROPHILS 71.3 % (40-80); PLATELET COUNT 416 10x3/uL (130-400); RBC 3.79 10x6/uL (4.00-5.40)
[2018-06-16 06:01] LABS: WBC 12.6 10x3/uL (4.8-10.8)
[2018-06-16 06:11] LABS: ALBUMIN 2.5 g/dL (3.4-5.0); ALKALINE PHOSPHATASE 72 U/L (46-116); BILIRUBIN - TOTAL 0.28 mg/dL (0.2-1.3); CALC OSMOLALITY 264 mosm/kg (275-300); CALCIUM 8.5 mg/dL (8.5-10.1); CARBON DIOXIDE 27.1 mmol/L (21.0-32.0); CHLORIDE - SERUM 97 mmol/L (98-107); CREATININE - SERUM 0.5 mg/dL (0.6-1.3); GLUCOSE 91 mg/dL (74-106); POTASSIUM - SERUM 3.9 mmol/L (3.5-5.1); PROTEIN - SERUM 6.6 g/dL (6.4-8.2); SODIUM 133 mmol/L (136-145); UREA NITROGEN 11 mg/dL (7-18); eGFR NON AFRICAN AMERICAN > 90 mL/min (90-120)
[2018-06-16 06:20] LABS: ALT (SGPT) 8 U/L (10-68)
--- NOTE | 2018-06-16 08:30 | NUR ---
PATIENT RESTING IN BED, REPORTS BM THIS AM, TOLERATED BREAKFAST WELL, CL INREACH
[2018-06-16 08:33] VITALS: BP 121/54
--- NOTE | 2018-06-16 13:29 | EC ---
PATIENT:SHANIKA MARTINEZ DATE OF SERVICE: 05/12/18 SEX: F MEDICAL RECORD: [id number] DATE OF : [birth year] LOCATION:[facility] AGE OF PATIENT: 47 ADMISSION DATE: 05/12/18 REFERRING PHYSICIAN: INTERPRETING PHYSICIAN: MOHAMUD MAYNARD MD ECHOCARDIOGRAM REPORT ECHO CHARGES 4 ECHO COMPLETE Date: 06/05/18 CLINICAL DIAGNOSIS: TACHYCARDIA ECHOCARDIOGRAPHIC MEASUREMENTS (adult normal given) AC root (d.<3.7cm) 2.9 cm LV Septum d (<1.2 cm> 1.1 cm Valve Excursion 1.1 cm LV Septum (systole) 1.2 cm Left Atria (s.<4.0cm> 2.9 cm LVPW d(<1.2cm) 1.3 cm RV (d.<2.3cm) 2.6 cm LVPW (sytole) 1.4 cm LV diastole(<5.6CM) 5.0 cm MV E-F(>70mm/sec) cm LV systole 4.1 cm LVOT Diameter 1.5 cm MV exc.(>10mm) 1.2 cm Est.ejection fraction (50-75%) % DOPPLER: LVIT cm/sec A cm/sec E cm/sec LA cm/sec RVSP 15 mmHg LVOT 96 cm/sec AOP1/2T m/s Asc. Ao 119 cm/sec RVOT cm/sec RA cm/sec PA cm/sec AV Gradient Peak 5.65 mmHg AV Mean 3.47 mmHg AV Area 1.6 cm MV Gradient Peak 8.12 mmHg MV Mean 2.49 mmHg MV Area cm COMMENTS: Content Management Consultant: Leyla DAMICO Final Expense Agent: 1 Dr. Maynard TAPE# PACS Pericardial Effusion DATE OF SERVICE: FINDINGS: 1. Left ventricular chamber size is within normal limits. Left ventricular systolic function is mildly depressed. Overall ejection fraction in the 45% to 50% range. 2. Left atrium is within normal limits at 2.9 cm. Right atrium and right ventricle chamber sizes are upper limits of normal. 3. Valvular structures have normal structure and motion. 4. Doppler interrogation reveals only mild mitral regurgitation, no other ECHOCARDIOGRAM REPORT [id number] SHANIKA MARTINEZ valvular insufficiency or stenosis. Pulmonary systolic pressure is normal estimated at 15 mmHg. TRANSINT:[id number] Voice Confirmation ID: [id number] DOCUMENT ID: [id number] MOHAMUD MAYNARD MD at 1329 CC: [id number] DICTATION DATE: 06/05/18 1302 BLEACH ANALYST: 06/05/18 1655 ADM IN [facility] [address] [id number]
[2018-06-16 15:50] VITALS: BP 113/61
--- NOTE | 2018-06-16 21:00 | NUR ---
RESTING QUEITLY. NO DISTRESS NOTED. RESP UNLOAOBRED. ABD SOFT NONDISTENDED WITH BOWEL SOUNDS PRESENT.UP ADD ROBERT TO RESTROOM. CL IN [facility]AN[facility]
[2018-06-16 21:50] VITALS: BP 158/79
--- NOTE | 2018-06-17 03:30 | NUR ---
RESTING QUITELY IN BED RESP UNLABORED NO APPARENT DISTRESS CALL LIGHT IN REACH
[2018-06-17 05:20] LABS: BASOPHILS 0.1 % (0-2); EOSINOPHILS 0.2 % (0-7); HEMATOCRIT 34.1 % (36.0-48.0); HEMOGLOBIN 11.3 g/dL (12-16); IMMATURE GRANULOCYTES 0.6 % (0-5); LYMPHOCYTES 15.3 % (15-50); MCH 29.9 pg (26.0-34.0); MCHC 33.1 g/dL (31.0-37.0); MCV 90.2 fL (80.0-100.0); MEAN PLATELET VOLUME 10.8 fL (7.4-10.4); MONOCYTES 10.4 % (2-11); NEUTROPHILS 73.4 % (40-80); PLATELET COUNT 497 10x3/uL (130-400); RBC 3.78 10x6/uL (4.00-5.40)
[2018-06-17 05:21] LABS: WBC 17.6 10x3/uL (4.8-10.8)
[2018-06-17 05:33] LABS: ALBUMIN 2.7 g/dL (3.4-5.0); ALKALINE PHOSPHATASE 73 U/L (46-116); ALT (SGPT) 9 U/L (10-68); BILIRUBIN - TOTAL 0.28 mg/dL (0.2-1.3); CALC OSMOLALITY 268 mosm/kg (275-300); CALCIUM 8.9 mg/dL (8.5-10.1); CHLORIDE - SERUM 98 mmol/L (98-107); CREATININE - SERUM 0.6 mg/dL (0.6-1.3); GLUCOSE 91 mg/dL (74-106); POTASSIUM - SERUM 3.5 mmol/L (3.5-5.1); PROTEIN - SERUM 6.7 g/dL (6.4-8.2); SODIUM 135 mmol/L (136-145); UREA NITROGEN 11 mg/dL (7-18); eGFR NON AFRICAN AMERICAN > 90 mL/min (90-120)
[2018-06-17 08:49] VITALS: BP 125/68
[2018-06-17 12:56] VITALS: BP 129/71
--- NOTE | 2018-06-17 13:40 | NUR ---
NUTRITION F/U PT TOLERATING REG DIET WITH ~50% INTAKE RECENT MEALS. PROCALAMINE DC'D. WILL CONTINUE TO PROVIDE DIET, MONITOR PO INTAKE. RD FOLLOWING
--- NOTE | 2018-06-17 14:40 | NUR ---
RESITED IV TO L FOREARM. FLUSHED WELL. NO REDDNESS OR SWELLING NOTE. NO S/S OF ACUTE DISTRESS. CL IN PLACE.
[2018-06-17 16:48] VITALS: BP 119/65
--- NOTE | 2018-06-17 19:22 | NUR ---
PT RESTING IN BED WATCHING TV. NO S/S OF ACUTE DISTRESS. CL IN PLACE.
[2018-06-17 21:23] VITALS: BP 136/78
--- NOTE | 2018-06-17 23:40 | NUR ---
PT RESTING COMFORTABLY. A/OX4. BREATHING EVEN AND UNLABORED. BP STABLE. HELD LOPRESSOR. PT ASKED WHEN ANKUR WOULD COME OUT. WILL CONTINUE POC.
[2018-06-18 04:45] VITALS: BP 118/63
[2018-06-18 07:32] LABS: BASOPHILS 0.1 % (0-2); EOSINOPHILS 0.2 % (0-7); HEMATOCRIT 31.5 % (36.0-48.0); HEMOGLOBIN 10.3 g/dL (12-16); IMMATURE GRANULOCYTES 0.5 % (0-5); LYMPHOCYTES 24.5 % (15-50); MCH 29.6 pg (26.0-34.0); MCHC 32.7 g/dL (31.0-37.0); MCV 90.5 fL (80.0-100.0); MEAN PLATELET VOLUME 10.8 fL (7.4-10.4); MONOCYTES 11.2 % (2-11); NEUTROPHILS 63.5 % (40-80); PLATELET COUNT 412 10x3/uL (130-400); RBC 3.48 10x6/uL (4.00-5.40); RDW 15.3 % (11.5-14.5); WBC 14.8 10x3/uL (4.8-10.8)
[2018-06-18 07:52] LABS: ALBUMIN 2.5 g/dL (3.4-5.0); ALKALINE PHOSPHATASE 63 U/L (46-116); ALT (SGPT) 10 U/L (10-68); BILIRUBIN - TOTAL 0.18 mg/dL (0.2-1.3); CALC OSMOLALITY 272 mosm/kg (275-300); CALCIUM 8.7 mg/dL (8.5-10.1); CARBON DIOXIDE 26.7 mmol/L (21.0-32.0); CHLORIDE - SERUM 101 mmol/L (98-107); CREATININE - SERUM 0.7 mg/dL (0.6-1.3); GLUCOSE 93 mg/dL (74-106); PROTEIN - SERUM 6.3 g/dL (6.4-8.2); SODIUM 137 mmol/L (136-145); UREA NITROGEN 11 mg/dL (7-18); eGFR NON AFRICAN AMERICAN > 90 mL/min (90-120)
[2018-06-18 07:53] LABS: POTASSIUM - SERUM 3.7 mmol/L (3.5-5.1)
[2018-06-18 08:47] VITALS: BP 134/69
--- NOTE | 2018-06-18 12:22 | MORECARE ---
CASE MANAGEMENT DISCHARGE SUMMARY PATIENT: SHANIKA MARTINEZ UNIT: [id number] ADM DATE: 05/12/18 AGE: 47 : [birth year] SEX: F ROOM/BED: D.2235 AUTHOR: ERUM,DOC PHYSICIAN: REFERRING PHYSICIAN: HANNAH SHORE MD DATE OF SERVICE: 06/18/18 Discharge Plan Patient Name: SHANIKA MARTINEZ Facility: [facility]:[place] : 1970 Planned Disposition: Home Anticipated Discharge Date: Discharge Date: Expected LOS: Initial Reviewer: [email or web address] Initial Review Date: 05/11/2018 Generated: 06/18/18 1:21 pm Comments DCP- Discharge Planning Updated by [id number]: Evelina Milton on 06/18/18 11:[address] Met with patient to discuss discharge planning. She states she plans on returning home. States she has been ambulatory in the room and her and her walk in the [facility] every evening. Denies discharge needs at this time. States she did give med data her new insurance information. I called Darvin with med data and left a message for her to call and I spoke with Darleen and she does not have any new information yet to send clinical information to. CM will continue to follow and assist with discharge planning/needs. DCP- Discharge Planning Updated by [id number]: Nathaly Sandoval on 05/15/18 10:[address]UARD WITH [facility] CALLED AND STATED THAT THEY WOULD DELIVER THE BSC TO HOSPITAL TODAY, INCASE THE PATIENT DISCHARGED HOME OVER THE WEEKEND DCP- Discharge Planning Updated by [id number]: Nathaly Sandoval on 05/15/18 7:[address]ENT TO [facility] FOR BEDSIDE COMMODE DCP- Discharge Planning Updated by [id number]: Nathaly Sandoval on 05/13/18 2:[address] Patient Name: SHANIKA MARTINEZ Admission Status: Elective Accout number: [id number] Admission Date: 05-12-2018 : 1970 Admission Diagnosis: Attending: HANNAH SHORE Current LOS: 1 Anticipated DC Date: Planned Disposition: Home Primary Insurance: [employer] Discharge Planning Comments: CM MET WITH PATIENT TO ASSESS DISCHARGE PLANNING NEEDS. SHE STATED SHE PLANS TO RETURN HOME. SHE HAS A SHOWER CHAIR AND [facility] HER WILL BE THE ONE TO TAKE HER HOME. SHE DENIES ANY HH AND STATED THAT SHE DOES NOT NEED IT AT THIS TIME. CM WILL CONTINUE TO FOLLOW AND ASSIST WITH DC PLANNING Production Tech: Nathaly Sandoval DCPIA - Discharge Planning Initial Assessment Updated by [id number]: Nathaly Sandoval on 05/13/18 3:26 pm * Is the patient Alert and Oriented? Yes * How many steps to enter\exit or inside your home? * PCP SILVIANO * Pharmacy [facility] * Preadmission Environment Home with Family * ADLs Independent * Equipment Shower Chair * List name and contact numbers for known caregivers / representatives who currently or will assist patient after discharge: SAJI () * Verbal permission to speak to the caregivers and representatives has been obtained from the patient. N/A * Community resources currently utilized None * Additional services required to return to the preadmission environment? Yes * Can the patient safely return to the preadmission environment? Yes * Has this patient been hospitalized within the prior 30 days at any hospital? No Last DP export: 05/15/18 10:36 Patient Name: SHANIKA MARTINEZ Page [id number] at 1222 All edits/amendments must be made on the electronic document DICTATION DATE: 06/18/18 1221 TEXTILE STYLIST: LUCINDA 06/18/18 1221 RPT#: [id number] [facility] DATE: STATUS: ADM IN [facility] [address] [place] [address] END OF REPORT
[2018-06-18 12:45] VITALS: BP 122/66
[2018-06-18 16:48] VITALS: BP 125/59
--- NOTE | 2018-06-18 19:16 | NUR ---
LATE ENTRY:06/17/18 1700. TRACIE TOLBERT REMOVED CVL. PLACED OPSITE OVER INSERTION SITE. SENT TIP OF CATH TO LAB TO BE CULTURED. NO S/S OF ACUTE DISTRESS.CL IN PLACE
[2018-06-18 20:20] VITALS: BP 96/40
[2018-06-18 23:33] VITALS: BP 95/43
--- NOTE | 2018-06-19 01:58 | NUR ---
SIX PACK PACKER CALLED TO RENEW HYDROMORPHONE LANGUAGE TRANSLATOR. STATED TO RENEW UNDER DR CAMILA CHURCH. BOLUIS GIVEN FOR PAIN 01/09. STATED NO MORE NEEDS AT THIS TIME.
[2018-06-19 04:05] VITALS: BP 125/70
[2018-06-19 05:43] LABS: BASOPHILS 0.1 % (0-2); EOSINOPHILS 0.3 % (0-7); HEMATOCRIT 33.5 % (36.0-48.0); HEMOGLOBIN 10.7 g/dL (12-16); IMMATURE GRANULOCYTES 0.6 % (0-5); LYMPHOCYTES 23.6 % (15-50); MCH 29.2 pg (26.0-34.0); MCHC 31.9 g/dL (31.0-37.0); MCV 91.5 fL (80.0-100.0); MEAN PLATELET VOLUME 10.7 fL (7.4-10.4); MONOCYTES 12.6 % (2-11); NEUTROPHILS 62.8 % (40-80); PLATELET COUNT 482 10x3/uL (130-400); RBC 3.66 10x6/uL (4.00-5.40); RDW 15.4 % (11.5-14.5); WBC 14.4 10x3/uL (4.8-10.8)
[2018-06-19 06:06] LABS: CALC OSMOLALITY 277 mosm/kg (275-300); CALCIUM 8.7 mg/dL (8.5-10.1); CARBON DIOXIDE 27.3 mmol/L (21.0-32.0); CHLORIDE - SERUM 101 mmol/L (98-107); CREATININE - SERUM 0.6 mg/dL (0.6-1.3); GLUCOSE 85 mg/dL (74-106); POTASSIUM - SERUM 3.4 mmol/L (3.5-5.1); SODIUM 139 mmol/L (136-145); eGFR NON AFRICAN AMERICAN > 90 mL/min (90-120)
--- NOTE | 2018-06-19 06:25 | NUR ---
A&O ABLE TO VOICE NEEDS AND WANTS TO STAFF. CALL LIGHT IN REACH, NO NEEDS AT THIS TIME.
[2018-06-19 06:38] LABS: UREA NITROGEN 14 mg/dL (7-18)
--- NOTE | 2018-06-19 08:25 | NUR ---
PT LAYING IN BED RESTING WITH EYES CLOSED, AWOKEN EASILY TO VERBAL STIMULI. MIDLINE INCISION NOTED, STERI STRIPS PRESENT. PT IS ALERT AND ORIENTED X4, DENIES NEEDS AT THIS TIME. VOICES THAT PAIN IS CONTROLLED VIA BIOSTATISTICS PROFESSOR. RESPIRATIONS EVEN AND UNLABORED, NO S/S OF DISTRESS. BED LOW AND LOCKED, SR UP X2, CL IN EASY REACH. WILL CONTINUE TO MONITOR.
[2018-06-19 08:51] VITALS: BP 118/57
[2018-06-19 13:37] VITALS: BP 153/85
--- NOTE | 2018-06-19 17:23 | NUR ---
LAYING IN BED RESTING COMFORTABLY, DENIES NEEDS. CL IN EASY REACH.
[2018-06-19 17:45] VITALS: BP 107/65
[2018-06-19 20:00] VITALS: BP 126/51
--- NOTE | 2018-06-19 20:00 | NUR ---
PT SITTING UP IN BED, NO SIGNS OF DISTRESS. ALERT AND ORIENTED. MIDLINE ABD INCISION W/ STERI STRIPS CDI. UP AD ROBERT. IV LEFT FA INFUSING NS @ 20 W/ DILAUDID TECHNOLOGY METHODOLOGY CONSULTANT. PT STATES PAIN WELL CONTROLLED W/ TECHNOLOGY METHODOLOGY CONSULTANT. STATES NO OTHER NEEDS OR COMPLAINTS AT THIS TIME. CL IN REACH, WILL CONTINUE TO MONITOR
[2018-06-20] VITALS: BP 120/56
[2018-06-20 03:00] VITALS: BP 124/75
[2018-06-20 06:43] LABS: CALC OSMOLALITY 270 mosm/kg (275-300); CALCIUM 8.5 mg/dL (8.5-10.1); CARBON DIOXIDE 28.7 mmol/L (21.0-32.0); CHLORIDE - SERUM 99 mmol/L (98-107); CREATININE - SERUM 0.5 mg/dL (0.6-1.3); GLUCOSE 91 mg/dL (74-106); POTASSIUM - SERUM 3.4 mmol/L (3.5-5.1); SODIUM 136 mmol/L (136-145); UREA NITROGEN 11 mg/dL (7-18); eGFR NON AFRICAN AMERICAN > 90 mL/min (90-120)
[2018-06-20 07:09] LABS: BASOPHILS 0.1 % (0-2); EOSINOPHILS 0.7 % (0-7); HEMATOCRIT 34.1 % (36.0-48.0); HEMOGLOBIN 11.1 g/dL (12-16); IMMATURE GRANULOCYTES 0.6 % (0-5); MCH 29.5 pg (26.0-34.0); MCHC 32.6 g/dL (31.0-37.0); MCV 90.7 fL (80.0-100.0); MONOCYTES 11.3 % (2-11); NEUTROPHILS 64.3 % (40-80); PLATELET COUNT 499 10x3/uL (130-400); RBC 3.76 10x6/uL (4.00-5.40); RDW 15.5 % (11.5-14.5); WBC 16.2 10x3/uL (4.8-10.8)
[2018-06-20 08:57] VITALS: BP 139/59
--- NOTE | 2018-06-20 09:53 | NUR ---
PT LAYING IN BED RESTING THIS AM, ROUTINE MEDICATIONS GIVEN PER EMAR. RESPIRATIONS EVEN AND UNLABORED, NO S/S OF DISTRESS NOTED. BOWEL SOUNDS PRESENT X4 QUAD. IV INFUSING TO LEFT FOREARM, VANCOMYCIN DOSE GIVEN PER EMAR. VOICES PAIN IS CONTROLLED VIA BARREL RIFLER HOOK PUMP. DENIES NEEDS AT THIS TIME. BED LOW AND LOCKED, SR UP X2, CL IN EASY REACH. WILL CONTINUE TO MONITOR THROUGHOUT THE DAY.
[2018-06-20 12:55] VITALS: BP 103/49
[2018-06-20 14:14] LABS: APPEARANCE CLEAR (CLEAR); BILIRUBIN NEGATIVE (NEGATIVE); COLOR YELLOW (YELLOW); GLUCOSE NEGATIVE (NEGATIVE); KETONE NEGATIVE (NEGATIVE); NITRITE NEGATIVE (NEGATIVE); PROTEIN NEGATIVE (NEGATIVE); SPECIFIC GRAVITY 1.015 (1.005-1.020); UROBILINOGEN NORMAL (NORMAL)
--- NOTE | 2018-06-20 18:34 | NUR ---
ALERT AND ORIENTED WITH MIDLINE INCISION TO ABDOMEN. UP ADLIB WITH TRAP PULLER AT CORRECT SETTINGS WITH IVF INFUSING W/O S/S OF INFECTION/INFILTRATION. ENCOURAGED TO USE CALL LIGHT FOR ASSIST
--- NOTE | 2018-06-20 19:58 | NUR ---
PT LYING IN BED, NO SIGNS OF DISTRESS. ALERT AND ORIENTED. STATES NO PAIN AT THIS TIME, PAIN WELL CONTROLLED W/ PLASTER MECHANIC. IV LEFT FA INFUSING NS @ 20 W/ DILAUDID PLASTER MECHANIC. NO REDNESS OR SWELLING AT INSERTION SITE, DRESSING CDI. MIDLINE ABD INCISION W/ STERI STRIPS CDI. PT STATES NOT TENDER, NO NAUSEA. UP AD ROBERT. STATES NO NEEDS OR COMPLAINTS AT THIS TIME. CL IN REACH, WILL CONTINUE TO MONITOR
[2018-06-20 20:00] VITALS: BP 122/70
--- NOTE | 2018-06-20 20:45 | NUR ---
PT STATES PAIN 6/10 D/T CRAMPING. GAVE DIRECTOR OF ENTERTAINMENT BOLUS. NO OTHER COMPLAINTS OR NEEDS AT THIS TIME. CL IN REACH, WILL CONTINUE TO MONITOR
[2018-06-21] VITALS: BP 120/61
[2018-06-21 03:00] VITALS: BP 126/71
[2018-06-21 06:36] LABS: BASOPHILS 0.1 % (0-2); EOSINOPHILS 0.5 % (0-7); HEMATOCRIT 34.7 % (36.0-48.0); IMMATURE GRANULOCYTES 0.7 % (0-5); LYMPHOCYTES 17.3 % (15-50); MCH 20.9 pg (26.0-34.0); MCHC 22.5 g/dL (31.0-37.0); MEAN PLATELET VOLUME 11.2 fL (7.4-10.4); MONOCYTES 10.9 % (2-11); NEUTROPHILS 70.5 % (40-80); RBC 3.74 10x6/uL (4.00-5.40); RDW 15.5 % (11.5-14.5)
[2018-06-21 06:49] LABS: HEMOGLOBIN 7.8 g/dL (12-16); MCV 92.8 fL (80.0-100.0); PLATELET COUNT 390 10x3/uL (130-400)
[2018-06-21 06:51] LABS: CALC OSMOLALITY 275 mosm/kg (275-300); CALCIUM 8.5 mg/dL (8.5-10.1); CARBON DIOXIDE 29.7 mmol/L (21.0-32.0); CHLORIDE - SERUM 100 mmol/L (98-107); CREATININE - SERUM 0.5 mg/dL (0.6-1.3); GLUCOSE 90 mg/dL (74-106); POTASSIUM - SERUM 3.5 mmol/L (3.5-5.1); SODIUM 138 mmol/L (136-145); UREA NITROGEN 13 mg/dL (7-18); eGFR NON AFRICAN AMERICAN > 90 mL/min (90-120)
--- NOTE | 2018-06-21 08:00 | NUR ---
PT LAYING IN BED THIS AM, CURLED INTO A BALL MOANING IN PAIN. DILAUDID ROOM SERVICE WAITER BOLUS GIVEN PER EMAR. WILL RECHECK AND SEE IF IT HELPED. BROOKE PORTER NOTIFIED OF PAIN. RESPIRATIONS EVEN AND UNLABORED, NO S/S OF DISTRESS. PAIN NOTED TO LEFT ABDOMEN, SHARP 9 OUT OF 10 ON A NUMERICAL SCALE. DENIES FURTHER NEEDS. BED LOW AND LOCKED, SR UP X2, CL IN EASY REACH.
[2018-06-21 09:21] VITALS: BP 130/50
[2018-06-21 10:25] LABS: HEMATOCRIT 37.1 % (36.0-48.0); HEMOGLOBIN 12.2 g/dL (12-16); MCH 30.2 pg (26.0-34.0); MCHC 32.9 g/dL (31.0-37.0); MCV 91.8 fL (80.0-100.0); MEAN PLATELET VOLUME 10.5 fL (7.4-10.4); PLATELET COUNT 437 10x3/uL (130-400); RBC 4.04 10x6/uL (4.00-5.40); RDW 15.5 % (11.5-14.5); WBC 14.1 10x3/uL (4.8-10.8)
[2018-06-21 11:01] LABS: LYMPHOCYTES 24 % (15-50); MONOCYTES 4 % (2-11); NEUTROPHILS 72 % (40-80)
[2018-06-21 11:02] LABS: PLATELET ESTIMATE NORMAL
--- NOTE | 2018-06-21 15:46 | NUR ---
ALERT AND ORIENTED AND UP AD ROBERT. IVF INFUSING TO LEFT FOREARM AT PRESRIBED RATE. DENIES ANY ABDOMINAL DISCOMFORT AT THIS TIME WITH BS NOTED. ENCOURAGED TO USE CALL LIGHT FOR ASSIST.
[2018-06-21 16:56] VITALS: BP 114/64
[2018-06-21 19:00] VITALS: BP 115/60
--- NOTE | 2018-06-21 22:12 | NUR ---
PT LYING IN BED, NO SIGNS OF DISTRESS. ALERT AND ORIENTED. PT STATES PAIN IN ABD FROM CRAMPING. NO OTHER NEEDS OR COMPLAINTS AT THIS TIME. CL IN REACH, WILL CONTINUE TO MONITOR
[2018-06-22] VITALS: BP 114/52
[2018-06-22 03:00] VITALS: BP 110/58
[2018-06-22 05:04] LABS: CALC OSMOLALITY 276 mosm/kg (275-300); CALCIUM 9.3 mg/dL (8.5-10.1); CARBON DIOXIDE 31.4 mmol/L (21.0-32.0); CHLORIDE - SERUM 99 mmol/L (98-107); CREATININE - SERUM 0.6 mg/dL (0.6-1.3); GLUCOSE 81 mg/dL (74-106); POTASSIUM - SERUM 3.7 mmol/L (3.5-5.1); SODIUM 139 mmol/L (136-145); UREA NITROGEN 13 mg/dL (7-18); eGFR NON AFRICAN AMERICAN > 90 mL/min (90-120)
[2018-06-22 05:20] LABS: HEMATOCRIT 36.4 % (36.0-48.0); HEMOGLOBIN 11.8 g/dL (12-16); MCH 29.9 pg (26.0-34.0); MCHC 32.4 g/dL (31.0-37.0); MCV 92.4 fL (80.0-100.0); MEAN PLATELET VOLUME 11.5 fL (7.4-10.4); PLATELET COUNT 419 10x3/uL (130-400); RBC 3.94 10x6/uL (4.00-5.40); RDW 15.5 % (11.5-14.5); WBC 21.2 10x3/uL (4.8-10.8)
--- NOTE | 2018-06-22 06:49 | NUR ---
PT PASSED STOOLS THROUGH THE NIGHT. NOT FULLY FORMED, BUT NOT WATERY. LOOSE TYPE STOOLS. NO OTHER ISSUES.
--- NOTE | 2018-06-22 08:00 | NUR ---
ALERT AND ORIENTED WITH HYPERCATIVE BSX4. APPETITE IMPROVING . ELEVATED WBC THIS AM TO 21. IVF INFUSING LEFT F/A AT 20CC/HR. LUNGS CTA. DENIES ANY PAINOR DISCOMFORT AT THIS TIME. ENCOURAGED TO USE CALL LIGHT FOR ASSIST.
[2018-06-22 08:25] VITALS: BP 108/51
[2018-06-22] MEDS ORDERED: LISINOPRIL5 MG PO (11:05)
[2018-06-22] MEDS ORDERED: TESSALON PERLE100 MG PO (11:06)
[2018-06-22] MEDS ORDERED: PREDNISONE20 MG PO (11:06)
[2018-06-22] MEDS ORDERED: MIRALAX17 GM PO (11:06)
[2018-06-22] MEDS ORDERED: MUCINEX600 MG PO (11:06)
[2018-06-22] MEDS ORDERED: PEPCID40 MG PO (11:07)
[2018-06-22] MEDS ORDERED: DILAUDID2 MG PO (11:16)
[2018-06-22] MEDS ORDERED: Duragesic TRANSDERM (11:16)
[2018-06-22] MEDS ORDERED: ELIQUIS5 MG PO (11:33)
[2018-06-22 12:26] VITALS: BP 103/57
[2018-06-22 14:57] LABS: LYMPHOCYTES 14 % (15-50); NEUTROPHILS 67 % (40-80)
[2018-06-22 14:58] LABS: CRENATED CELLS OCC; MONOCYTES 14 % (2-11)
[2018-06-22 14:59] LABS: PLATELET ESTIMATE INCREASED; ROULEAUX OCC
--- NOTE | 2018-06-25 11:08 | MORECARE ---
CASE MANAGEMENT DISCHARGE SUMMARY PATIENT: SHANIKA MARTINEZ UNIT: [id number] ADM DATE: 05/12/18 AGE: 47 : 70 SEX: F ROOM/BED: D.2235 AUTHOR: CIRA DANIELSON PHYSICIAN: REFERRING PHYSICIAN: HANNAH SHORE MD DATE OF SERVICE: 06/25/18 Discharge Plan Patient Name: SHANIKA MARTINEZ Facility: [facility]:[place] : 1970 Planned Disposition: Home Anticipated Discharge Date: Discharge Date: 06/22/2018 Expected LOS: 0 Initial Reviewer: [email or web address] Initial Review Date: 05/11/2018 Generated: 06/25/18 12:08 pm Comments DCP- Discharge Planning Updated by [email or web address]: Evelina Rose on 06/18/18 11:[address] Met with patient to discuss discharge planning. She states she plans on returning home. States she has been ambulatory in the room and her and her walk in the [facility] every evening. Denies discharge needs at this time. States she did give med data her new insurance information. I called Darvin with med data and left a message for her to call and I spoke with Darleen and she does not have any new information yet to send clinical information to. CM will continue to follow and assist with discharge planning/needs. DCP- Discharge Planning Updated by [email or web address]: Nathaly Sandoval on 05/15/18 10:[address] EDUARD WITH [facility] CALLED AND STATED THAT THEY WOULD DELIVER THE BSC TO HOSPITAL TODAY, INCASE THE PATIENT DISCHARGED HOME OVER THE WEEKEND DCP- Discharge Planning Updated by [email or web address]: Nathaly Sandoval on 05/15/18 7:[address] ORDER SENT TO [facility] FOR BEDSIDE COMMODE DCP- Discharge Planning Updated by [id number]: Nathaly Sandoval on 05/13/18 2:[address] Patient Name: SHANIKA MARTINEZ Admission Status: Elective Accout number: [id number] Admission Date: 05-12-2018 : 1970 Admission Diagnosis: Attending: HANNAH SHORE Current LOS: 1 Anticipated DC Date: Planned Disposition: Home Primary Insurance: [employer] Discharge Planning Comments: CM MET WITH PATIENT TO ASSESS DISCHARGE PLANNING NEEDS. SHE STATED SHE PLANS TO RETURN HOME. SHE HAS A SHOWER CHAIR AND IS ASKING FOR A BSC AT [place]. HER WILL BE THE ONE TO TAKE HER HOME. SHE DENIES ANY HH AND STATED THAT SHE DOES NOT NEED IT AT THIS TIME. CM WILL CONTINUE TO FOLLOW AND ASSIST WITH DC PLANNING Rn Telemetry: Nathaly Sandoval DCPIA - Discharge Planning Initial Assessment Updated by [id number]: Nathaly Sandoval on 05/13/18 3:26 pm * Is the patient Alert and Oriented? Yes * How many steps to enter\exit or inside your home? * PCP [facility] * [facility]acy [facility] * Preadmission Environment Home with Family * ADLs Independent * Equipment Shower Chair * List name and contact numbers for known caregivers / representatives who currently or will assist patient after discharge: SAJI () * Verbal permission to speak to the caregivers and representatives has been obtained from the patient. N/A * Community resources currently utilized None * Additional services required to return to the preadmission environment? Yes * Can the patient safely return to the preadmission environment? Yes * Has this patient been hospitalized within the prior 30 days at any hospital? No Last DP export: 06/18/18 11:22 a Patient Name: SHANIKA MARTINEZ Page [id number] at 1108 All edits/amendments must be made on the electronic document DICTATION DATE: 06/25/181107 GOODS LAYER: LUCINDA 06/25/181107 RPT#: [id number] DC DATE:06/22/18 STATUS: DIS IN [facility] [address] [place] [address] END OF REPORT
== END 2018-06-22 13:55 | disposition home or self-care (01) | DRG 329 ==
LOC: D.MS 17:38 → OBSVTIME 17:38 → D.MS 17:38 → D.ICU 05-12 16:54 → D.MS 05-12 16:54 → D.ICU 06-04 12:15 → D.MS 06-07 18:30 → D.SDCHOLD 06-16 14:00 → D.MS 06-16 14:02
PROVIDERS: Emergency Medicine; Family Medicine; Family Medicine Adult Medicine; Internal Medicine Gastroenterology; Internal Medicine Nephrology; Surgery; ADMIT Family Medicine
PROC: 0DB58ZX Excision of Esophagus, Via Natural or Artificial Opening Endoscopic, Diagnostic (ICD-10-PCS; principal; 2018-05-15)
PROC: 0DBE8ZX Excision of Large Intestine, Via Natural or Artificial Opening Endoscopic, Diagnostic (ICD-10-PCS; 2018-05-15)
PROC: 0DBG0ZZ Excision of Left Large Intestine, Open Approach (ICD-10-PCS; 2018-06-04)
PROC: 0DTB0ZZ Resection of Ileum, Open Approach (ICD-10-PCS; 2018-06-04)
DX: K56.50 Intestinal adhesions [bands], unspecified as to partial versus complete obstruction (principal); E43 Unspecified severe protein-calorie malnutrition; J18.9 Pneumonia, unspecified organism; N10 Acute pyelonephritis; F17.213 Nicotine dependence, cigarettes, with withdrawal; K56.609 Unspecified intestinal obstruction, unspecified as to partial versus complete obstruction; E86.0 Dehydration; E87.6 Hypokalemia; E11.9 Type 2 diabetes mellitus without complications; I10 Essential (primary) hypertension; E78.5 Hyperlipidemia, unspecified

== ENCOUNTER 2019-05-14 18:40 | Inpatient (IN) | payer OTHER ==
[~2019-05-14] VITALS: Ht 162.6 cm; Wt 54.4 kg
[~2019-05-14 18:40] MED LIST changes: +AMITRIPTYLINE100 MG PO; +CYMBALTA30 MG PO; +DILAUDID2 MG PO; +Duragesic TRANSDERM; +ELIQUIS5 MG PO; +FLAGYL500 MG PO; +HYDROCODON-ACE1 EA10 PO; +LEVAQUIN750 MG PO; +LISINOPRIL5 MG PO; +MUCINEX600 MG PO; +PEPCID40 MG PO; +PREDNISONE20 MG PO; +ROPINIROLE HCL2 MG PO; +TESSALON PERLE100 MG PO
--- NOTE | 2019-05-14 18:49 | NUR ---
PT IS NOT COUGHING BLOOD; WAS UNABLE TO CHANGE THE "Y"
--- NOTE | 2019-05-14 19:12 | NUR ---
REPORT TO TOMASZ CAMILO
[2019-05-14 19:38] LABS: BASOPHILS 0.1 % (0-2); EOSINOPHILS 1.1 % (0-7); HEMATOCRIT 42.8 % (36.0-48.0); HEMOGLOBIN 14.2 g/dL (12-16); IMMATURE GRANULOCYTES 0.7 % (0-5); LYMPHOCYTES 19.4 % (15-50); MCH 31.9 pg (26.0-34.0); MCHC 33.2 g/dL (31.0-37.0); MCV 96.2 fL (80.0-100.0); MEAN PLATELET VOLUME 10.7 fL (7.4-10.4); MONOCYTES 9.5 % (2-11); NEUTROPHILS 69.2 % (40-80); RBC 4.45 10x6/uL (4.00-5.40); RDW 14.5 % (11.5-14.5); WBC 12.1 10x3/uL (4.8-10.8)
[2019-05-14 19:40] LABS: PLATELET COUNT 353 10x3/uL (130-400)
[2019-05-14 19:46] LABS: CALC OSMOLALITY 278 mosm/kg (275-300); CARBON DIOXIDE 29.6 mmol/L (21.0-32.0); CHLORIDE - SERUM 103 mmol/L (98-107); CREATININE - SERUM 0.6 mg/dL (0.6-1.3); GLUCOSE 98 mg/dL (74-106); POTASSIUM - SERUM 3.4 mmol/L (3.5-5.1); SODIUM 141 mmol/L (136-145); UREA NITROGEN 8 mg/dL (7-18); eGFR NON AFRICAN AMERICAN > 90 mL/min (90-120)
[2019-05-14 19:46] LABS: APPEARANCE CLEAR (CLEAR); BILIRUBIN NEGATIVE (NEGATIVE); COLOR YELLOW (YELLOW); GLUCOSE NEGATIVE (NEGATIVE); KETONE NEGATIVE (NEGATIVE); NITRITE NEGATIVE (NEGATIVE); PROTEIN TRACE mg/dL (NEGATIVE); UROBILINOGEN NORMAL (NORMAL)
[2019-05-14 19:47] LABS: BACTERIA FEW /hpf (NEGATIVE); EPITHELIAL CELLS 0-5 /hpf (0-5); RED CELLS - URINE 0-5 /hpf (0-5); WHITE CELLS - URINE OCC /hpf (NEGATIVE)
--- NOTE | 2019-05-14 19:50 | NUR ---
PATIENT RESTING ON STRETCHER C/O BACK AND ABD PAIN, STATES SHE HAS HAD THE BACK PAIN X3 DAYS, AND HAS GOTTEN WORSE.
[2019-05-14 19:59] LABS: ALBUMIN 3.5 g/dL (3.4-5.0); ALKALINE PHOSPHATASE 153 U/L (46-116); ALT (SGPT) 22 U/L (10-68); AMYLASE - SERUM 33 U/L (25-115); BILIRUBIN - TOTAL 0.34 mg/dL (0.2-1.3); C-REACTIVE PROTEIN 0.4 mg/dL (0.0-0.9); PROTEIN - SERUM 6.7 g/dL (6.4-8.2)
[2019-05-14 20:00] LABS: LIPASE 41 U/L (73-393)
--- NOTE | 2019-05-14 20:18 | NUR ---
PATIENT STATES SHE IS STILL IN PAIN , THE PAIN MEDICATION WASN'T EFFECTIVE RELIEF, MD NOTIFIED.
--- NOTE | 2019-05-14 22:11 | NUR ---
UNABLE TO SCAN MEDICATIONS, COMPUTER IS NOT WORKING IN THE ROOM.
--- NOTE | 2019-05-14 22:22 | NUR ---
GOING FOR A VQ SCAN, TECH TO BEDSIDE, PT STABLE.
--- NOTE | 2019-05-14 23:21 | NUR ---
BACK FROM SCAN
[2019-05-15 00:13] VITALS: BP 135/87; BMI 20.6
--- NOTE | 2019-05-15 01:18 | NUR ---
RECEIVED PATIENT TO FLOOR. REQUESTING PAIN MEDICINE. ADVISED THAT ADMINISTRATION IS NOT DUE YET. PATIENT VERBALIZES UNDERSTANDING. PROVIDED IV ZOFRAN PER REQUEST. PATIENT DENIES FURTHER NEEDS AT THIS TIME. CPOC.
[2019-05-15 04:00] VITALS: BP 142/82
--- NOTE | 2019-05-15 04:22 | NUR ---
I have reviewed this patient and I concur with the Shift Assessment completed by the Licensed Practical Nurse today this shift.
[2019-05-15 06:23] LABS: INR 0.99 (0.85-1.17); PROTIME 12.6 SECONDS (11.6-15.0)
[2019-05-15 06:24] LABS: APTT 27.2 SECONDS (22.8-39.4)
[2019-05-15 06:31] LABS: C-REACTIVE PROTEIN 1.3 mg/dL (0.0-0.9); CALC OSMOLALITY 277 mosm/kg (275-300); CALCIUM 9.2 mg/dL (8.5-10.1); CARBON DIOXIDE 27.5 mmol/L (21.0-32.0); CHLORIDE - SERUM 102 mmol/L (98-107); CREATININE - SERUM 0.5 mg/dL (0.6-1.3); GLUCOSE 137 mg/dL (74-106); MAGNESIUM - SERUM 1.8 mg/dL (1.8-2.4); PHOSPHOROUS 3.8 mg/dL (2.5-4.9); SODIUM 139 mmol/L (136-145); UREA NITROGEN 7 mg/dL (7-18); eGFR NON AFRICAN AMERICAN > 90 mL/min (90-120)
[2019-05-15 06:32] LABS: POTASSIUM - SERUM 4.1 mmol/L (3.5-5.1)
[2019-05-15 07:36] LABS: BASOPHILS 0.1 % (0-2); EOSINOPHILS 0.2 % (0-7); HEMATOCRIT 41.4 % (36.0-48.0); HEMOGLOBIN 13.6 g/dL (12-16); IMMATURE GRANULOCYTES 0.6 % (0-5); LYMPHOCYTES 7.6 % (15-50); MCH 31.9 pg (26.0-34.0); MCHC 32.9 g/dL (31.0-37.0); MEAN PLATELET VOLUME 10.3 fL (7.4-10.4); MONOCYTES 7.2 % (2-11); NEUTROPHILS 84.3 % (40-80); PLATELET COUNT 323 10x3/uL (130-400); RBC 4.27 10x6/uL (4.00-5.40); RDW 14.5 % (11.5-14.5); WBC 11.9 10x3/uL (4.8-10.8)
--- NOTE | 2019-05-15 07:40 | NUR ---
PT RESTING IN BED. RESP EVEN AND UNLABORED. PT REPORTS PAIN 8/10 AT THIS TIME. EDUCATED PT REGARDING NEXT DOSE OF PAIN MED AND TIME CAN BE ADMINISTERED. PT VOICES UNDERSTANDING. IV TO RIGHT WRIST WITH NS @ 100ML/HR INFUSING VIA PUMP. SITE WITHOUT REDNESS OR EDEMA. DENIES FURTHER NEEDS AT THIS TIME. CL WITHIN REACH. ENCOURAGED TO CALL WITH NEEDS. CONTINUE POC
[2019-05-15 07:49] VITALS: BP 95/66
[2019-05-15 08:38] LABS: ERYTHROCYTE SEDIMENTATION RATE 27 mm/hr (0-20)
[2019-05-15 08:53] VITALS: BMI 20.6
[2019-05-15 12:00] VITALS: BP 106/66
[2019-05-15 16:11] VITALS: BP 142/76
--- NOTE | 2019-05-15 19:15 | NUR ---
PATIENT ALERT AND ORIENTED WHEN ENTERING THE ROOM. AT BEDSIDE. PATIENT NOW HAS ZOFRAN DRIP AND NS INFUSING TO THE RIGHT WRIST. NO EDEMA OR REDNESS NOTED TO THE INSERTION SITE AND IS DRESSED TO SKIN. PATIENT REQUESTS PAIN MEDICINE WHEN AVAILABLE ALTHOUGH [facility] AND RN IN REPORT STATES THAT PAIN MEDICINE WAS GIVEN LESS THAN ONE HOUR BEFORE. SPOKE WITH PATIENT ABOUT THIS. PATIENT STATES SHE FORGOT BUT REQUESTS PAIN MEDICINE WHEN AVAILABLE. PATIENT DENIES FURTHER NEEDS. EDUCATED ON NEED OF STOOL SAMPLE. PATIENT STATES UNDERSTANDING BUT IS CURRENTLY ON A CLD AND STATES SHE HAS NOT BEEN EATING MUCH. CALL LIGHT IS IN REACH OF PATIENT. BED LOWERED AND LOCKED. SIDE RAILS UP X 2.
[2019-05-15 20:00] VITALS: BP 143/83
[2019-05-16 00:46] VITALS: BP 134/72
[2019-05-16 04:00] VITALS: BP 140/80
[2019-05-16 04:38] LABS: BASOPHILS 0.1 % (0-2); EOSINOPHILS 0.4 % (0-7); HEMATOCRIT 41.8 % (36.0-48.0); HEMOGLOBIN 13.8 g/dL (12-16); IMMATURE GRANULOCYTES 0.4 % (0-5); LYMPHOCYTES 16.4 % (15-50); MCH 32.3 pg (26.0-34.0); MCV 97.9 fL (80.0-100.0); MEAN PLATELET VOLUME 11.1 fL (7.4-10.4); MONOCYTES 11.3 % (2-11); NEUTROPHILS 71.4 % (40-80); PLATELET COUNT 288 10x3/uL (130-400); RBC 4.27 10x6/uL (4.00-5.40); RDW 14.5 % (11.5-14.5); WBC 13.6 10x3/uL (4.8-10.8)
[2019-05-16 04:46] LABS: CALC OSMOLALITY 264 mosm/kg (275-300); CALCIUM 8.5 mg/dL (8.5-10.1); CARBON DIOXIDE 24.2 mmol/L (21.0-32.0); CHLORIDE - SERUM 102 mmol/L (98-107); CREATININE - SERUM 0.4 mg/dL (0.6-1.3); MAGNESIUM - SERUM 1.8 mg/dL (1.8-2.4); PHOSPHOROUS 3.8 mg/dL (2.5-4.9); POTASSIUM - SERUM 4.3 mmol/L (3.5-5.1); SODIUM 134 mmol/L (136-145); UREA NITROGEN 7 mg/dL (7-18); eGFR NON AFRICAN AMERICAN > 90 mL/min (90-120)
[2019-05-16 04:56] LABS: GLUCOSE 88 mg/dL (74-106)
[2019-05-16 07:43] VITALS: BP 141/76
--- NOTE | 2019-05-16 09:24 | NUR ---
PT ALERT X 4. BREATH SOUNDS CLEAR BILAT. ABDOMEN TENDER, PT NOT TOLERATING HER DIET. IV TO RIGHT WRIST, PATENT, DRESSING CDI. PT REPORTING PAIN OF 6/10 WITH USE OF HEAT PACK, WILL MONITOR. BED LOW, CALL LIGHT IN REACH. NO OTHER NEEDS AT THIS TIME.
[2019-05-16 12:48] VITALS: BP 140/77
--- NOTE | 2019-05-16 14:18 | NUR ---
PER DR CROSS WILL SCHEDULE FOR 05/17/19 GIVEN THAT IT IS ROUTINE NOT STAT OR EMERGENT. NURSE JAIDEN MUNOZ.
[2019-05-16 14:41] VITALS: Ht 162.6 cm; Wt 54.4 kg
[2019-05-16 16:47] VITALS: BP 165/82
[2019-05-16 20:11] VITALS: BP 132/79
[2019-05-17 00:15] VITALS: BP 132/80
[2019-05-17 04:31] VITALS: BP 152/80
[2019-05-17 06:32] LABS: CALCIUM 8.4 mg/dL (8.5-10.1); CHLORIDE - SERUM 104 mmol/L (98-107); CREATININE - SERUM 0.3 mg/dL (0.6-1.3); MAGNESIUM - SERUM 1.8 mg/dL (1.8-2.4); POTASSIUM - SERUM 4.8 mmol/L (3.5-5.1); SODIUM 140 mmol/L (136-145); eGFR NON AFRICAN AMERICAN > 90 mL/min (90-120)
[2019-05-17 06:46] LABS: BASOPHILS 0.2 % (0-2); EOSINOPHILS 0.6 % (0-7); HEMATOCRIT 40.8 % (36.0-48.0); HEMOGLOBIN 13.3 g/dL (12-16); IMMATURE GRANULOCYTES 0.5 % (0-5); LYMPHOCYTES 17.4 % (15-50); MCHC 32.6 g/dL (31.0-37.0); MCV 98.1 fL (80.0-100.0); MEAN PLATELET VOLUME 10.1 fL (7.4-10.4); MONOCYTES 9.9 % (2-11); NEUTROPHILS 71.4 % (40-80); RBC 4.16 10x6/uL (4.00-5.40); RDW 14.3 % (11.5-14.5)
[2019-05-17 06:52] LABS: GLUCOSE 67 mg/dL (74-106); UREA NITROGEN 4 mg/dL (7-18)
[2019-05-17 06:53] LABS: CALC OSMOLALITY 273 mosm/kg (275-300); CARBON DIOXIDE 15.4 mmol/L (21.0-32.0)
[2019-05-17 07:05] LABS: PLATELET COUNT 356 10x3/uL (130-400); WBC 9.6 10x3/uL (4.8-10.8)
[2019-05-17 07:28] VITALS: BP 150/80
--- NOTE | 2019-05-17 07:47 | NUR ---
ALERT AND ORIENTED. LUNGS CLEAR BILATERALLY. HEART SOUNDS S1 AND S2 HEARD IN ALL FLOR. BOWEL SOUNDS ACTIVE X 4. SKIN INTACT WITHOUT REDNESS. IV TO RFA PATENT WITHOUT REDNESS. DENIES NEEDS. BED LOW. CALL PEÑA AND PERSONAL ITEMS IN REACH. WILL CONTINUE TO MONITOR.
[2019-05-17 07:55] LABS: CALC OSMOLALITY 273 mosm/kg (275-300); CALCIUM 8.6 mg/dL (8.5-10.1); CHLORIDE - SERUM 103 mmol/L (98-107); GLUCOSE 73 mg/dL (74-106); SODIUM 139 mmol/L (136-145); UREA NITROGEN 4 mg/dL (7-18)
[2019-05-17 08:01] LABS: CARBON DIOXIDE 24.4 mmol/L (21.0-32.0); CREATININE - SERUM 0.6 mg/dL (0.6-1.3); POTASSIUM - SERUM 3.6 mmol/L (3.5-5.1); eGFR NON AFRICAN AMERICAN > 90 mL/min (90-120)
--- NOTE | 2019-05-17 08:40 | NUR ---
PATIENT STATES GOING DOWNSTAIRS AND WILL BE BACK UP.
--- NOTE | 2019-05-17 09:19 | NUR ---
PATIENT NOT IN ROOM TO GIVE AM MEDS AT THIS TIME. WILL ATTEMPT LATER.
--- NOTE | 2019-05-17 09:57 | NUR ---
PATIENT STILL NOT IN ROOM. LOOKED THROUGH [facility] AND FOUND 22 GUAGE IV CATH WITH TIP INTACT. NO BELONGINGS. IN ROOM. ASSUMING LEFT AMA. WILL NOTIFY NURSE MITER CUTTER.
--- NOTE | 2019-05-17 10:10 | NUR ---
SAFETY PHYSICIAN VALERIE NOTIFIED ABOUT PATIENT POSSIBLY LEAVING AMA. STATES PAGE PATIENT [id number] TO RETURN TO ROOM OVERHEAD AND CALL BACK IF DOES NOT RETURN. PAGED OVERHEAD.
--- NOTE | 2019-05-17 10:33 | NUR ---
CSSTARS COMPLETED PER TEST ENGINE EVALUATOR VALERIE.
== END 2019-05-17 10:34 | disposition left against medical advice (07) | DRG 386 ==
LOC: D.ER 18:40 → D.MS 21:46
PROVIDERS: Family Medicine; Internal Medicine Nephrology; ADMIT Emergency Medicine; ATTEND Emergency Medicine
DX: K50.90 Crohn's disease, unspecified, without complications (principal); N39.0 Urinary tract infection, site not specified; E87.6 Hypokalemia; J44.9 Chronic obstructive pulmonary disease, unspecified; I10 Essential (primary) hypertension; E78.5 Hyperlipidemia, unspecified; F41.8 Other specified anxiety disorders; K21.9 Gastro-esophageal reflux disease without esophagitis; M19.90 Unspecified osteoarthritis, unspecified site; M54.9 Dorsalgia, unspecified; I25.10 Atherosclerotic heart disease of native coronary artery without angina pectoris

== ENCOUNTER 2019-09-22 15:39 | Emergency (ER) | payer OTHER ==
[~2019-09-22] VITALS: Ht 162.6 cm; Wt 55.9 kg
[2019-09-22 15:40] VITALS: BP 129/88; Ht 162.6 cm; Wt 55.9 kg
== END 2019-09-22 17:03 | disposition home or self-care (01) ==
LOC: D.ER 15:39
DX: R51 Headache (principal); M54.9 Dorsalgia, unspecified; W19.XXXA Unspecified fall, initial encounter; Y93.9 Activity, unspecified; Y92.9 Unspecified place or not applicable; I10 Essential (primary) hypertension; J44.9 Chronic obstructive pulmonary disease, unspecified; K21.9 Gastro-esophageal reflux disease without esophagitis; E11.9 Type 2 diabetes mellitus without complications

== ENCOUNTER 2019-12-06 14:55 | Emergency (ER) | payer OTHER ==
[~2019-12-06] VITALS: Ht 162.6 cm; Wt 195.5 kg
[2019-12-06 15:50] VITALS: Ht 162.6 cm; Wt 195.5 kg
[2019-12-06 17:00] LABS: BASOPHILS 0.2 % (0-2); EOSINOPHILS 1.6 % (0-7); HEMATOCRIT 39.9 % (36.0-48.0); HEMOGLOBIN 13.4 g/dL (12-16); IMMATURE GRANULOCYTES 0.2 % (0-5); LYMPHOCYTES 17.9 % (15-50); MCH 32.4 pg (26.0-34.0); MCHC 33.6 g/dL (31.0-37.0); MCV 96.6 fL (80.0-100.0); MEAN PLATELET VOLUME 11.1 fL (7.4-10.4); MONOCYTES 10.3 % (2-11); NEUTROPHILS 69.8 % (40-80); RBC 4.13 10x6/uL (4.00-5.40); RDW 13.5 % (11.5-14.5)
[2019-12-06 17:03] LABS: PLATELET COUNT 172 10x3/uL (130-400)
[2019-12-06 17:11] LABS: CALC OSMOLALITY 278 mosm/kg (275-300); CALCIUM 8.2 mg/dL (8.5-10.1); CARBON DIOXIDE 27.5 mmol/L (21.0-32.0); CHLORIDE - SERUM 104 mmol/L (98-107); CREATININE - SERUM 0.6 mg/dL (0.6-1.3); GLUCOSE 85 mg/dL (74-106); POTASSIUM - SERUM 3.8 mmol/L (3.5-5.1); SODIUM 141 mmol/L (136-145); UREA NITROGEN 11 mg/dL (7-18); eGFR NON AFRICAN AMERICAN > 90 mL/min (90-120)
[2019-12-06 17:17] LABS: ALBUMIN 3.6 g/dL (3.4-5.0); ALKALINE PHOSPHATASE 224 U/L (30-120); ALT (SGPT) 89 U/L (10-68); BILIRUBIN - TOTAL 0.23 mg/dL (0.2-1.3); PROTEIN - SERUM 6.4 g/dL (6.4-8.2)
[2019-12-06] MEDS ORDERED: LEVOFLOXACIN500 MG PO (18:02)
[2019-12-06] MEDS ORDERED: MUCINEX DM ER1 EAC1 PO (18:02)
[2019-12-06 19:31] VITALS: BP 121/74
== END 2019-12-06 19:50 | disposition home or self-care (01) ==
LOC: D.ER 14:55
PROVIDERS: Family Medicine
DX: J18.9 Pneumonia, unspecified organism (principal); R05 Cough; R50.9 Fever, unspecified; R06.02 Shortness of breath; E11.40 Type 2 diabetes mellitus with diabetic neuropathy, unspecified; J44.9 Chronic obstructive pulmonary disease, unspecified; K21.9 Gastro-esophageal reflux disease without esophagitis; S40.011A Contusion of right shoulder, initial encounter; Y09 Assault by unspecified means

== ENCOUNTER 2019-12-10 15:09 | Emergency (ER) | payer OTHER ==
[~2019-12-10] VITALS: Ht 162.6 cm; Wt 59.1 kg
[~2019-12-10 15:09] MED LIST changes: +LEVOFLOXACIN500 MG PO; +MUCINEX DM ER1 EAC1 PO
[2019-12-10 16:01] VITALS: Ht 162.6 cm; Wt 59.1 kg
[2019-12-10 17:59] LABS: BASOPHILS 0.4 % (0-2); HEMATOCRIT 40.7 % (36.0-48.0); HEMOGLOBIN 13.3 g/dL (12-16); IMMATURE GRANULOCYTES 0.7 % (0-5); LYMPHOCYTES 30.3 % (15-50); MCH 32.4 pg (26.0-34.0); MCHC 32.7 g/dL (31.0-37.0); MEAN PLATELET VOLUME 11.1 fL (7.4-10.4); MONOCYTES 6.9 % (2-11); NEUTROPHILS 59.7 % (40-80); RBC 4.11 10x6/uL (4.00-5.40); RDW 14.1 % (11.5-14.5)
[2019-12-10 18:00] LABS: APTT 28.6 SECONDS (22.8-39.4); INR 0.89 (0.85-1.17); PROTIME 12.1 SECONDS (11.6-15.0)
[2019-12-10 18:01] LABS: D-DIMER-QUANTITATIVE 0.47 ug/mLFEU (0.20-0.54); PLATELET COUNT 272 10x3/uL (130-400)
[2019-12-10 18:19] LABS: CALC OSMOLALITY 286 mosm/kg (275-300); CALCIUM 9.4 mg/dL (8.5-10.1); CARBON DIOXIDE 28.8 mmol/L (21.0-32.0); CHLORIDE - SERUM 107 mmol/L (98-107); CREATININE - SERUM 0.8 mg/dL (0.6-1.3); GLUCOSE 79 mg/dL (74-106); POTASSIUM - SERUM 4.9 mmol/L (3.5-5.1); SODIUM 143 mmol/L (136-145); UREA NITROGEN 21 mg/dL (7-18); eGFR NON AFRICAN AMERICAN 81 mL/min (90-120)
[2019-12-10 18:37] LABS: ALBUMIN 3.4 g/dL (3.4-5.0); ALKALINE PHOSPHATASE 187 U/L (30-120); ALT (SGPT) 32 U/L (10-68); CKMB 0.9 U/L (0.0-3.6); CREATINE KINASE 64 UL (21-215); PRO BNP 330 pg/mL (0-125); PROTEIN - SERUM 6.4 g/dL (6.4-8.2); TROPONIN-I < 0.017 ng/mL (0.000-0.060); URIC ACID 4.7 mg/dL (2.6-7.2)
[2019-12-10] MEDS ORDERED: HYDROCODON-ACE1 EAC7 PO (20:21)
[2019-12-10] MEDS ORDERED: CLEOCIN HCL300 MG PO (20:21)
[2019-12-10 23:11] VITALS: BP 123/56
== END 2019-12-10 23:12 | disposition home or self-care (01) ==
LOC: D.ER 15:09
PROVIDERS: Family Medicine
DX: R06.00 Dyspnea, unspecified (principal); L03.115 Cellulitis of right lower limb; J18.9 Pneumonia, unspecified organism; E11.40 Type 2 diabetes mellitus with diabetic neuropathy, unspecified; J44.9 Chronic obstructive pulmonary disease, unspecified; K21.9 Gastro-esophageal reflux disease without esophagitis; R05 Cough

== ENCOUNTER 2020-08-03 13:17 | Emergency (ER) | payer MEDICARE, OTHER ==
[~2020-08-03] VITALS: Ht 162.6 cm; Wt 59.1 kg
[~2020-08-03 13:17] MED LIST changes: +CLEOCIN HCL300 MG PO
[2020-08-03 13:23] VITALS: Ht 162.6 cm; Wt 59.1 kg
[2020-08-03 14:38] LABS: ALBUMIN 3.6 g/dL (3.4-5.0); ALKALINE PHOSPHATASE 170 U/L (30-120); ALT (SGPT) 24 U/L (10-68); AMYLASE - SERUM 33 U/L (25-115); BILIRUBIN - TOTAL 0.49 mg/dL (0.2-1.3); CALC OSMOLALITY 276 mosm/kg (275-300); CALCIUM 8.6 mg/dL (8.5-10.1); CARBON DIOXIDE 19.8 mmol/L (21.0-32.0); CHLORIDE - SERUM 106 mmol/L (98-107); CREATININE - SERUM 0.5 mg/dL (0.6-1.3); GLUCOSE 92 mg/dL (74-106); POTASSIUM - SERUM 4.3 mmol/L (3.5-5.1); PROTEIN - SERUM 6.7 g/dL (6.4-8.2); SODIUM 138 mmol/L (136-145); TROPONIN-I < 0.017 ng/mL (0.000-0.060); UREA NITROGEN 14 mg/dL (7-18); eGFR NON AFRICAN AMERICAN > 90 mL/min (90-120)
[2020-08-03 14:40] LABS: LIPASE 43 U/L (73-393)
[2020-08-03 16:00] LABS: BILIRUBIN NEGATIVE (NEGATIVE); KETONE NEGATIVE (NEGATIVE); NITRITE NEGATIVE (NEGATIVE); UROBILINOGEN NORMAL mg/dL (< 2)
[2020-08-03 16:20] LABS: BASOPHILS 0.6 % (0-2); EOSINOPHILS 3.5 % (0-7); HEMATOCRIT 40.9 % (36.0-48.0); HEMOGLOBIN 13.7 g/dL (12-16); IMMATURE GRANULOCYTES 0.4 % (0-5); LYMPHOCYTE ABS# 2.25 10x3/uL (1.18-3.74); MCH 32.9 pg (26.0-34.0); MCHC 33.5 g/dL (31.0-37.0); MCV 98.3 fL (80.0-100.0); MEAN PLATELET VOLUME 10.3 fL (7.4-10.4); MONOCYTES 8.2 % (2-11); NEUTROPHIL ABS# 3.69 10x3/uL (1.56-6.13); NEUTROPHILS 54.3 % (40-80); PLATELET COUNT 240 10x3/uL (130-400); RBC 4.16 10x6/uL (4.00-5.40); RDW 13.9 % (11.5-14.5); WBC 6.8 10x3/uL (4.8-10.8)
[2020-08-03] MEDS ORDERED: CHRONULAC30 ML PO (16:57)
[2020-08-03 17:14] VITALS: BP 152/63
== END 2020-08-03 17:30 | disposition home or self-care (01) ==
LOC: D.ER 13:17
PROVIDERS: Family Medicine
DX: R10.12 Left upper quadrant pain (principal); K59.00 Constipation, unspecified; E11.40 Type 2 diabetes mellitus with diabetic neuropathy, unspecified; J44.9 Chronic obstructive pulmonary disease, unspecified; K21.9 Gastro-esophageal reflux disease without esophagitis; Z72.0 Tobacco use